=== PATIENT | female | born 1945 | race Caucasian/White ===

== ENCOUNTER → 2020-09-16 10:38 | Outpatient (BNVA) | payer MEDICARE, SELFPAY | PROVIDERS: PCP Internal Medicine Medical Oncology; Visit Provider Internal Medicine | DX: J44.9 Chronic obstructive pulmonary disease, unspecified (principal); F41.9 Anxiety disorder, unspecified; Z79.899 Other long term (current) drug therapy | CPT/HCPCS: 99212 ==

== ENCOUNTER → 2021-03-16 09:27 | Outpatient (BNVA) | payer MEDICARE, SELFPAY | PROVIDERS: PCP Internal Medicine Medical Oncology; Visit Provider Internal Medicine | DX: J44.9 Chronic obstructive pulmonary disease, unspecified (principal); F41.9 Anxiety disorder, unspecified | CPT/HCPCS: 99212 ==

== ENCOUNTER 2021-09-03 08:52 | Observation (INO) | payer MEDICARE, SELFPAY ==
[2021-09-03] VITALS (10 sets, daily range): BP systolic 117–174; BP diastolic 54–73; PULSE 74–88; RESP 13–18; TEMP 36.9–37.9; O2SAT 94–98; BMI 25.0
--- NOTE | ~2021-09-03 | XR_ITS ---
EXAMINATION: XR CHEST CLINICAL INFORMATION: Productive cough, yellow sputum for approximately 6 days. COMPARISON: Chest radiographs 02/06/2007 TECHNIQUE: Portable upright AP view of the chest was obtained. FINDINGS: Patient is rotated to the left. There is questionable opacity left retrocardiac region at posterior medial base. There are no air bronchograms and no effusion. The lungs otherwise clear. The heart is normal in size. There is no acute bony abnormality. XR/XR chest 1V IMPRESSION: Question airspace opacity left retrocardiac region.
--- NOTE | 2021-09-03 09:29 | ECG_ITS ---
Test Reason : FATIGUE Blood Pressure : / mmHG Vent. Rate : 087 BPM Atrial Rate : 087 BPM P-R Int : 112 ms QRS Dur : 074 ms QT Int : 324 ms P-R-T Axes : 050 018 026 degrees QTc Int : 389 ms Normal sinus rhythm Normal ECG No previous ECGs available Referred By: Jacinta Llamas Electronically Signed By:LOTTIE SPAIN MD
--- NOTE | 2021-09-03 09:33 | ED_ITS ---
HPI - URI/Sore Throat General Chief Complaint: Upper Respiratory Symptoms Stated Complaint: cough Time Seen by Provider: 09/03/21 09:23 Source: patient and family ( at bedside) Mode of arrival: ambulatory Limitations: no limitations History of Present Illness HPI Narrative: 76-year-old female presenting to the ED with her at bedside who has a past medical history of anxiety and COPD currently being followed by pulmonology presenting to the ED with complaints of generalized fatigue with a poor appetite for the past few weeks after she had the old people flu vaccine on July 29 her also received the vaccine although since then the patient has not been feeling herself. She reports that on Tuesday she developed a productive cough with yellow-colored sputum. She was fully vaccinated with the COVID vaccine in December. She denies any fevers, chills, dizziness, headaches, neck pain/stiffness, sore throat, ear pain, chest pain or shortness of breath, dyspnea on exertion, orthopnea, palpitations, abdominal pain, back pain, dysuria, hematuria, black or bloody stools, lower extremity edema, calf tenderness, recent travel or sick contacts or any other symptoms complaints or concerns at this time. MD elicited complaint: cough and other (Generalized fatigue, body aches and poor appetite) Onset (ago): week(s) Consistency: constant and progressively worsening Severity: mild Description of mucous: yellow Able to tolerate fluids by mouth: Yes Exacerbating factors: nothing Relieving factors: nothing Associated symptoms: myalgias, cough and other (Fatigue and poor appetite) Treatments prior to arrival: none Related Data Home Medications Medication Instructions Recorded Confirmed atorvastatin 40 mg tablet 40 mg PO DAILY 07/26/20 lisinopril 10 mg tablet 10 mg PO DAILY 07/26/20 Previous Rx's Medication Instructions Recorded salmeterol 50 mcg/dose blister 1 inh INHALATION BID 30 Days #60 ea 01/01/21 powder for inhalation fluticasone propionate 220 2 puff INHALATION BID #12 cap 02/25/21 mcg/actuation HFA aerosol inhaler (Flovent HFA) lorazepam 1 mg tablet 1 mg PO .Q 6 HOURS PRN FOR AN PRN 06/16/21 30 Days #30 tab albuterol sulfate 90 mcg/actuation 2 puff INHALATION Q6H PRN #1 ea 07/14/21 aerosol inhaler (ProAir HFA) Allergies Allergy/AdvReac Type Severity Reaction Status Date / Time levofloxacin [Levaquin] Allergy Unknown Unknown Verified 03/16/21 09:38 Sulfa (Sulfonamide Allergy Unknown Unknown Verified 03/16/21 09:38 Antibiotics) Review of Systems Review of Systems: Constitutional : Positive fatigue/malaise, Weight loss, No Fever, No Chills, No Night Sweats ENT/Mouth : No Hearing loss, No Ear Pain, No Nasal Congestion, No Sinus Pain, No Hoarseness, No sore throat, No Rhinorrhea, No Swallowing Difficulty Eyes: No Eye Pain, No Swelling, No Redness, No Foreign Body, No Discharge, No Vision Changes Cardiovascular : No Chest Pain, No SOB, No Dyspnea on Exertion, No Orthopnea, No Edema, No Palpitations Respiratory : Positive cough with yellow-colored sputum production, No Wheezing, No Smoke Exposure, No Dyspnea Gastrointestinal : No Nausea, No Vomiting, No Diarrhea, No Constipation, No abdominal Pain, No Hematochezia, No Melena Genitourinary : no irregular bleeding, No Dysuria, No Urinary Frequency, No Hematuria, No Urinary Incontinence, No Urgency, No Flank Pain, No Urinary Flow Changes, No Hesitancy Musculoskeletal : Positive myalgias, No joint pain, No Joint Swelling Skin : No Skin Lesions, No rash Neuro : No Weakness, No Numbness, No Paresthesias, No Loss of Consciousness, No Dizziness, No Headache Psych : No Anxiety/Panic, No Depression, No SI/HI/AH/VH, No Social Issues, Heme/Lymph: No Bruising, No Bleeding,No Lymphadenopathy Endocrine : No Polyuria, No Polydipsia, No Temperature Intolerance Yes all other systems are reviewed and are negative [facility] Past Medical History Attestation statement: The following information was validated with the patient. Medical History Anxiety COPD (chronic obstructive pulmonary disease) Social History Social History Alcohol intake: never Patient Tobacco Use Status: Never used Tobacco Years Smoked: 1979 Use of substances other than those prescribed or required for medical reasons: No Advance Directives: No Advance Directives Information Provided: No Physical Exam Vital Signs: Vital Signs: Last Vital Signs Temp 98.5 F 09/03/21 14:06 Pulse 79 09/03/21 14:05 Resp 13 09/03/21 14:05 BP 173/54 H 09/03/21 12:10 Pulse Ox 94 09/03/21 10:16 Body Mass Index 25.0 vital signs have been reviewed as normal and appeared to be correct. Blood pressure hypertensive 174/73. Heart rate normal. Respiration rate normal. Temperature normal. Oxygen saturation normal. Appearance: Alert. Oriented X3. No acute distress. Head: Normal external exam. Normocephalic. Atraumatic. Eyes: PERRLA. EOMI. Conjunctiva and sclera normal. Eyelids normal. ENT: EAC normal. TM's Normal. Pharynx normal. Uvula midline. Moist mucous membranes. No trismus noted. No drooling noted. No muffled voice noted. Neck: Normal inspection. Neck supple. FROM. No adenopathy. Thyroid Normal. No meningeal signs. No neck mass noted. CVS: Normal heart rate and rhythm. Heart sound normal. Pulses normal throughout. No murmurs/rales/gallops. Respiratory: No respiratory distress. Painless inspiration. Breath sounds normal. No wheezes/rales/rhonchi noted. Chest nontender. No accessory muscle usage noted or decreased air movement noted. Abdomen: Soft and nontender. Bowel sounds normal in all 4 quadrants. No distention noted. No organomegaly noted. No visible injury noted. Back: No CVA tenderness. Full range of motion noted. No rashes/lesion/ induration/fluctuance or signs of infection noted. Skin: Skin warm and dry. Normal skin color. Normal skin turgor. No rashes/lesions/lacerations noted. Extremities: No lower extremity edema. No calf tenderness is noted. Extremities exhibit normal range of motion. Extremities nontender. Neuro: Oriented X 3. No motor deficit. No sensory deficit. Reflexes normal. Normal steady gait. No focal neuro deficits noted. Vascular: + radial pulses/+ 2 distal pedal pulses/+2 dorsalis pedis b/l. Normal cap refill. No cyanosis noted to upper extremity nails and lower extremity toes nails. Course Course Course Narrative: 9:30am - 76-year-old female presenting to the ED with her at bedside who has a past medical history of anxiety and COPD currently being followed by pulmonology presenting to the ED with complaints of generalized fatigue with a poor appetite for the past few weeks after she had the old people flu vaccine on July 29 her also received the vaccine although since then the patient has not been feeling herself. She reports that on Tuesday she developed a productive cough with yellow-colored sputum. She was fully vaccinated with the COVID vaccine in December. On exam patient is alert oriented x3. Not in any acute distress. No focal know that are noted. Lungs clear to auscultation. CV RRR. Abdomen is soft and nontender. No CVA tenderness is noted. No lower extremity edema or calf tenderness is noted. Plan: Labs, EKG, chest x-ray, COVID swab. Provide a L of IV fluids and re- evaluate. Reevaluation(s) Reevaluation #1: - labs return patient with an elevated white blood cell count at 12,000. BUN 22. AST/ALT 94. Troponin 9.4. Otherwise all other labs are within normal limits. UA with 1+ leukocytes. COVID swab negative. - question airspace opacity left retro cardiac region - it appears that patient also has a low-grade fever of 100.3. - therefore at this time will add blood cultures and lactic acid along with 1 g of Rocephin - patient will have a repeat troponin at 13:00 will then re-evaluate Time: 11:06 Reevaluation #2: - patient had a repeat troponin 2 hours after the 1st accident ally and it was elevated at 19.9 - therefore I obtained a 3rd troponin 3 hours after the 1st troponin and it is at 28.6 - patient continues to deny any chest pain or shortness of breath at this time a lthough due to troponin being double/positive patient will be admitted to observation unit patient understands agrees with this plan. Time: 14:32 [facility] - URI/Sore Throat Medical Records Attestation: I reviewed the patient's medical records. Lab Data Attestation: I reviewed the patient's lab results. Result diagrams: 09/03/21 10:16 09/03/21 10:16 Labs: Lab Results 09/03/21 09/03/21 09/03/21 Range/Units 10:16 10:16 10:16 WBC 12.0 H (4.8-10.8) X10*3/uL RBC 3.99 L (4.20-5.50) X10*6/uL Hgb 12.7 (12.0-16.0) g/dl Hct 37.2 (37.0-47.0) % MCV 93.2 (80.0-98.0) fL MCH 31.8 (27.0-33.0) pg MCHC 34.1 (31.0-35.0) g/dl RDW 13.2 (11.0-16.0) % Plt Count 325 (160-400) X10*3/uL MPV 9.2 L (9.4-12.3) fL Immature Gran % (Auto) 0.7 H (0.0-0.4) % Neut % (Auto) 89.7 H (45-73) % Lymph % (Auto) 3.6 L (20-40) % [place] % (Auto) 5.5 (2-11) % Eos % (Auto) 0.3 (0-4) % Baso % (Auto) 0.2 (0-2) % Lymph # (Auto) 0.4 L (1.2-4.9) X10*3/uL [place] # (Auto) 0.7 (0.1-1.2) X10*3/uL Eos # (Auto) 0.0 (0.0-0.4) X10*3/uL Baso # (Auto) 0.0 (0.0-0.2) X10*3/uL Abs Immat Gran (auto) 0.08 H (0.00-0.03) X10*3/uL Absolute Neuts (auto) 10.80 H (2.0-8.3) x10*3/uL Absolute Nucleated RBC 0.000 (0.0-0.012) X10*3/uL Nucleated RBC % (auto) 0.0 (0.0-0.2) /100WBC PT (9.9-13.0) SEC INR (0.9-1.1) Sodium 137 (135-145) mmol/L Potassium 4.3 (3.3-5.1) mmol/L Chloride 101 (96-108) mmol/L Carbon Dioxide 26 (22-29) mmol/L Anion Gap 14 (12-20) BUN 22 H (9-16) mg/dL Creatinine 0.77 (0.5-1.4) mg/dL Estim Creat Clear Calc 48.8 Estimated GFR > 60 Random Glucose 113 (60-115) mg/dL Lactic Acid (0.5-2.0) mmol/L Calcium 9.2 (8.4-10.2) mg/dL Magnesium 2.0 (1.6-2.6) mg/dL Total Bilirubin 0.8 (0.0-1.0) mg/dL AST 94 H (5-31) U/L ALT 94 H (0-31) U/L Alkaline Phosphatase 90 (39-117) U/L Troponin I High Sens (<3.5-17.0) ng/L B-Natriuretic Peptide (<100) pg/mL Total Protein 6.8 (6.5-8.0) g/dL Albumin 3.8 (3.5-5.0) g/dL Urine Color Urine Appearance Urine pH (5.0-8.0) Ur Specific [place] (1.005-1.025) Urine Protein (NEG-TRACE) MG/DL Urine Glucose (UA) (NEG) MG/DL Urine Ketones (NEG) MG/DL Urine Blood (NEG) Urine Nitrite (NEG) Ur Leukocyte Esterase (NEG) Urine RBC (0) /HPF Urine WBC (0-4) /HPF Ur Squamous Epith Cells /LPF Urine Bacteria /LPF COVID-19 (TOM) Negative (Negative) COVID-19 Clin Com See Note 09/03/21 09/03/21 09/03/21 Range/Units 10:16 10:16 10:16 WBC (4.8-10.8) X10*3/uL RBC (4.20-5.50) X10*6/uL Hgb (12.0-16.0) g/dl Hct (37.0-47.0) % MCV (80.0-98.0) fL MCH (27.0-33.0) pg MCHC (31.0-35.0) g/dl RDW (11.0-16.0) % Plt Count (160-400) X10*3/uL MPV (9.4-12.3) fL Immature Gran % (Auto) (0.0-0.4) % Neut % (Auto) (45-73) % Lymph % (Auto) (20-40) % [place] % (Auto) (2-11) % Eos % (Auto) (0-4) % Baso % (Auto) (0-2) % Lymph # (Auto) (1.2-4.9) X10*3/uL [place] # (Auto) (0.1-1.2) X10*3/uL Eos # (Auto) (0.0-0.4) X10*3/uL Baso # (Auto) (0.0-0.2) X10*3/uL Abs Immat Gran (auto) (0.00-0.03) X10*3/uL Absolute Neuts (auto) (2.0-8.3) x10*3/uL Absolute Nucleated RBC (0.0-0.012) X10*3/uL Nucleated RBC % (auto) (0.0-0.2) /100WBC PT 13.4 H (9.9-13.0) SEC INR 1.2 H (0.9-1.1) Sodium (135-145) mmol/L Potassium (3.3-5.1) mmol/L Chloride (96-108) mmol/L Carbon Dioxide (22-29) mmol/L Anion Gap (12-20) BUN (9-16) mg/dL Creatinine (0.5-1.4) mg/dL Estim Creat Clear Calc Estimated GFR Random Glucose (60-115) mg/dL Lactic Acid (0.5-2.0) mmol/L Calcium (8.4-10.2) mg/dL Magnesium (1.6-2.6) mg/dL Total Bilirubin (0.0-1.0) mg/dL AST (5-31) U/L ALT (0-31) U/L Alkaline Phosphatase (39-117) U/L Troponin I High Sens 9.4 (<3.5-17.0) ng/L B-Natriuretic Peptide 17 (<100) pg/mL Total Protein (6.5-8.0) g/dL Albumin (3.5-5.0) g/dL Urine Color YELLOW Urine Appearance HAZY Urine pH 6.0 (5.0-8.0) Ur Specific [place] 1.010 (1.005-1.025) Urine Protein NEG (NEG-TRACE) MG/DL Urine Glucose (UA) NEG (NEG) MG/DL Urine Ketones NEG (NEG) MG/DL Urine Blood NEG (NEG) Urine Nitrite NEG (NEG) Ur Leukocyte Esterase 1+ H (NEG) Urine RBC 0-2 (0) /HPF Urine WBC 0-2 (0-4) /HPF Ur Squamous Epith Cells 1+ /LPF Urine Bacteria NONE /LPF COVID-19 (TOM) (Negative) COVID-19 Clin Com 09/03/21 09/03/21 09/03/21 Range/Units 11:48 11:48 13:20 WBC (4.8-10.8) X10*3/uL RBC (4.20-5.50) X10*6/uL Hgb (12.0-16.0) g/dl Hct (37.0-47.0) % MCV (80.0-98.0) fL MCH (27.0-33.0) pg MCHC (31.0-35.0) g/dl RDW (11.0-16.0) % Plt Count (160-400) X10*3/uL MPV (9.4-12.3) fL Immature Gran % (Auto) (0.0-0.4) % Neut % (Auto) (45-73) % Lymph % (Auto) (20-40) % [place] % (Auto) (2-11) % Eos % (Auto) (0-4) % Baso % (Auto) (0-2) % Lymph # (Auto) (1.2-4.9) X10*3/uL [place] # (Auto) (0.1-1.2) X10*3/uL Eos # (Auto) (0.0-0.4) X10*3/uL Baso # (Auto) (0.0-0.2) X10*3/uL Abs Immat Gran (auto) (0.00-0.03) X10*3/uL Absolute Neuts (auto) (2.0-8.3) x10*3/uL Absolute Nucleated RBC (0.0-0.012) X10*3/uL Nucleated RBC % (auto) (0.0-0.2) /100WBC PT (9.9-13.0) SEC INR (0.9-1.1) Sodium (135-145) mmol/L Potassium (3.3-5.1) mmol/L Chloride (96-108) mmol/L Carbon Dioxide (22-29) mmol/L Anion Gap (12-20) BUN (9-16) mg/dL Creatinine (0.5-1.4) mg/dL Estim Creat Clear Calc Estimated GFR Random Glucose (60-115) mg/dL Lactic Acid 1.4 (0.5-2.0) mmol/L Calcium (8.4-10.2) mg/dL Magnesium (1.6-2.6) mg/dL Total Bilirubin (0.0-1.0) mg/dL AST (5-31) U/L ALT (0-31) U/L Alkaline Phosphatase (39-117) U/L Troponin I High Sens 19.4 H* D 28.6 H* (<3.5-17.0) ng/L B-Natriuretic Peptide (<100) pg/mL Total Protein (6.5-8.0) g/dL Albumin (3.5-5.0) g/dL Urine Color Urine Appearance Urine pH (5.0-8.0) Ur Specific [place] (1.005-1.025) Urine Protein (NEG-TRACE) MG/DL Urine Glucose (UA) (NEG) MG/DL Urine Ketones (NEG) MG/DL Urine Blood (NEG) Urine Nitrite (NEG) Ur Leukocyte Esterase (NEG) Urine RBC (0) /HPF Urine WBC (0-4) /HPF Ur Squamous Epith Cells /LPF Urine Bacteria /LPF COVID-19 (TOM) (Negative) COVID-19 Clin Com Imaging Data Chest x-ray: Attestation: I personally reviewed and interpreted this imaging study as follows: Radiologist's impression: FINDINGS: Patient is rotated to the left. There is questionable opacity left retrocardiac region at posterior medial base. There are no air bronchograms and no effusion. The lungs otherwise clear. The heart is normal in size. There is no acute bony abnormality. XR/XR chest 1V IMPRESSION: Question airspace opacity left retrocardiac region. ECG Data Attestation: I personally reviewed and interpreted this ECG as follows: ECG interpretation date: 09/03/21 ECG interpretation time: 10:02 Interpretation: Normal sinus rhythm and trickling of 87 with a normal IN interval normal QRS duration normal QT/QTC interval. No acute ischemic change are noted. Scores Heart Score History: -0- slightly suspicious ECG: -0- normal Age: -2- > or = 65 Risk factory: -0- no risk factors known Troponin: -1- >1 - <3x normal limit Score: 3 Risk: 1.7% Critical Care Time Critical Care Time Critical Care Time: Yes Total Critical Care Time: 60 Attestation: I personally attest to this time spent taking care of the patient Discharge Plan Discharge Clinical Impression: Pneumonia, Elevated troponin Patient Disposition: Admitted as Observation Prescriptions: No Action salmeterol 50 mcg/dose blister with device 1 inh inhalation BID 30 Days Qty: 60 RF: 5 fluticasone propionate [Flovent HFA] 220 mcg/actuation HFA aerosol inhaler 2 puff inhalation BID Qty: 12 RF: 3 lorazepam 1 mg tablet 1 mg PO .Q 6 HOURS PRN FOR AN PRN (Reason: anxiety) 30 Days Qty: 30 RF: 2 albuterol sulfate [ProAir HFA] 90 mcg/actuation HFA aerosol inhaler 2 puff inhalation Q6H PRN (Reason: shortness of breath or wheezing) Qty: 1 RF: 2 lisinopril 10 mg tablet 10 mg PO DAILY RF: 0 atorvastatin 40 mg tablet 40 mg PO DAILY RF: 0
[2021-09-03] MEDS: 0.9 % Sodium Chloride 1,000 ML 999 ML IVCONT (10:18)
--- NOTE | 2021-09-03 10:19 | PC.NURSE ---
C/O GEN FATIGUE. NO HEADACHE/CP/DIZZINESS. STEADY ON FEET TO BR. UNLABORED RESP. AWAITS RESULTS.
[2021-09-03 10:24] LABS: MANUAL DIFF FLAG NO
[2021-09-03 10:26] LABS: Appearance Urine HAZY; Basophils Percent Auto 0.2 % (0-2); Color Urine YELLOW; Eosinophils Percent Auto 0.3 % (0-4); Glucose Urine UA NEG (NEG); Hematocrit 37.2 % (37.0-47.0); Hemoglobin 12.7 g/dl (12.0-16.0); Imm Gran Abs Auto 0.08 X10*3/uL (0.00-0.03); Imm Gran Pct Auto 0.7 % (0.0-0.4); Leukocyte Esterase Urine 1+ (NEG); Lymphocytes Absolute Auto 0.4 X10*3/uL (1.2-4.9); Lymphocytes Percent Auto 3.6 % (20-40); Mean Corpuscular HGB Conc 34.1 g/dl (31.0-35.0); Mean Corpuscular Hemoglobin 31.8 pg (27.0-33.0); Mean Corpuscular Volume 93.2 fL (80.0-98.0); Mean Platelet Volume 9.2 fL (9.4-12.3); Monocytes Absolute Auto 0.7 X10*3/uL (0.1-1.2); Monocytes Percent Auto 5.5 % (2-11); Neutrophils Percent Auto 89.7 % (45-73); Nitrite Urine NEG (NEG); Platelet Count 325 X10*3/uL (160-400); Red Blood Count 3.99 X10*6/uL (4.20-5.50); Red Cell Distribution Width 13.2 % (11.0-16.0); UACC Culture Trigger YES; Urine Blood NEG (NEG); Urine Ketones NEG (NEG); Urine Protein NEG (NEG-TRACE)
[2021-09-03 10:33] LABS: INTERNATIONAL NORM RATIO 1.2 (0.9-1.1); Prothrombin Time 13.4 SEC (9.9-13.0)
[2021-09-03 10:42] LABS: Alanine Aminotransferase 94 U/L (0-31); Albumin Level 3.8 g/dL (3.5-5.0); Alkaline Phosphatase 90 U/L (39-117); Anion Gap 14 (12-20); Aspartate Amino Transferase 94 U/L (5-31); Bilirubin Total 0.8 mg/dL (0.0-1.0); Blood Urea Nitrogen 22 mg/dL (9-16); COVID-19 Test Negative (Negative); Calcium 9.2 mg/dL (8.4-10.2); Carbon Dioxide 26 mmol/L (22-29); Chloride 101 mmol/L (96-108); Creatinine Clr Calc Pharmacy 48.8; Estimated Glomerular Filt Rate > 60; Glucose Random 113 mg/dL (60-115); IDNOW Serial# 9DD0AD1C; Potassium 4.3 mmol/L (3.3-5.1); Sodium 137 mmol/L (135-145); Total Protein 6.8 g/dL (6.5-8.0)
[2021-09-03 10:49] LABS: B Type Natriuretic Peptide 17 pg/mL (<100); Troponin-I High Sensitivity 9.4 ng/L (<3.5-17.0)
[2021-09-03 11:50] LABS: RBC Urine 0-2 /HPF (0); Squamous Epithelial Cell Urine 1+ /LPF; WBC Urine 0-2 /HPF (0-4)
[2021-09-03] MEDS: cefTRIAXone sodium 1 GM in 0.9 % Sodium Chloride 50 ML IV (12:04)
[2021-09-03 12:08] LABS: Lactic Acid 1.4 mmol/L (0.5-2.0)
[2021-09-03] MEDS: Acetaminophen 325 MG TABLET 975 MG PO (12:11)
[2021-09-03 12:29] LABS: Troponin-I High Sensitivity 19.4 ng/L (<3.5-17.0)
[2021-09-03 13:51] LABS: Troponin-I High Sensitivity 28.6 ng/L (<3.5-17.0)
--- NOTE | 2021-09-03 15:05 | PHA.MEDREC ---
Pharmacy Consult ? Medication Reconciliation Pharmacy has completed the medication reconciliation. Marilyn FletcherD
--- NOTE | 2021-09-03 15:17 | PM.IMHP ---
History of Present Illness Date of Service: 09/03/21 <BRET Tsang - Last Filed: 09/03/21 15:29> Attending physician on admission: Gerry Rosas <BRET Tsang - Last Filed: 09/03/21 15:29> Chief Complaint: Weakness <BRET Tsang - Last Filed: 09/03/21 15:29> This is a 76-year-old female who presents to the emergency department today with multiple complaints. She received her flu vaccination close to 1 month ago. Since that time she has reported decreased appetite generally not feeling well and sleeping more than usual. She also reports a cough productive of yellow phlegm and intermittent chills. She denies any associated fever or recent sick contacts. She is fully vaccinated for coronavirus. She denies any chest pain, palpitations. Today in the emergency department she was noted to have a low-grade fever of 100.3 her COVID test was negative. Chest x-ray showed possibility of pneumonia and she was given a dose of IV ceftriaxone. Her urinalysis was negative. Labs showed a slight transaminitis with AST and ALT at 94. Her cardiac enzymes were checked and increased by greater than 50%, from 9 to 19 to 28. EKG did not show any acute ischemic changes. <BRET Tsang - Last Filed: 09/03/21 15:29> Review of Systems Review of Systems: Yes all other systems are reviewed and are negative <BRET Tsang - Last Filed: 09/03/21 15:29> Constitutional: Constitutional: Reports chills and Reports malaise <BRET Tsang - Last Filed: 09/03/21 15:29> Cardiovascular: Cardiovascular: Denies chest pain <BRET Tsang - Last Filed: 09/03/21 15:29> Gastrointestinal: Gastrointestinal: Denies abdominal pain <BRET Tsang Last Filed: 09/03/21 15:29> [facility] Medical History: Medical History (Updated 09/03/21 @ 15:28 by BRET Tsang) Anxiety COPD (chronic obstructive pulmonary disease) HLD (hyperlipidemia) HTN (hypertension) <BRET Tsang - Last Filed: 09/03/21 15:29> Functional capacity: independent ambulation <BRET Tsang - Last Filed: 09/03/21 15:29> Pertinent family history: mom- HTN dad- Parkinson's disease <BRET Tsang - Last Filed: 09/03/21 15:29> Social History: Social History (Updated 09/03/21 @ 15:22 by BRET Tsang) Alcohol intake: current Alcohol intake frequency: a few times a month Patient Tobacco Use Status: Former Tobacco user Years Smoked: 1979 Use of substances other than those prescribed or required for medical reasons: No Advance Directives: No Advance Directives Information Provided: No service: No Current occupational status: retired <BRET Tsang - Last Filed: 09/03/21 15:29> Meds Allergies/Adverse reactions: Allergies Allergy/AdvReac Type Severity Reaction Status Date / Time levofloxacin [Levaquin] Allergy Unknown Unknown Verified 03/16/21 09:38 Sulfa (Sulfonamide Allergy Unknown Unknown Verified 03/16/21 09:38 Antibiotics) <BRET Tsang - Last Filed: 09/03/21 15:29> Active Medications: Current Medications Albuterol Sulfate (Albuterol Sulfate 90 Mcg 8 Gm Inhaler) 2 puff INHALE Q6H PRN PRN Reason: shortness of breath or wheezing Docusate Sodium (Docusate Sodium 100 Mg Capsule) 100 mg PO DAILY PRN PRN Reason: Constipation Heparin Sodium (Porcine) (Heparin Sodium,Porcine 5,000 Unit/Ml Vial) 5,000 unit SUBCUT Q12H WALTER Ceftriaxone Sodium 1 gm/ (Sodium Chloride) 50 mls @ 100 mls/hr IV Q24H WALTER Azithromycin 500 mg/ Sodium (Chloride) 250 mls @ 125 mls/hr IV Q24H WALTER Lisinopril (Lisinopril 10 Mg Tablet) 10 mg PO BEDTIME WALTER; Protocol Lorazepam (Lorazepam 1 Mg Tablet) 1 mg PO BEDTIME WALTER Non-Formulary Medication (Fluticasone Propionate [Flovent Hfa]) 1 puff INHALE BEDTIME WALTER Ondansetron HCl (Ondansetron Hcl 4 Mg/2 Ml Vial) 4 mg IVPUSH Q8H PRN PRN Reason: Nausea and Vomiting Pharmacy Consult (Consult Rx Perform Med Rec) 1 each MISCELLANE ONCE PRN PRN Reason: Consult order Salmeterol Xinafoate (Salmeterol Xinafoate 50 Mcg Blst.W.Dev) 1 puff INHALE BEDTIME WALTER Sodium Chloride (0.9 % Sodium Chloride Flush 3 Ml Syringe) 3 ml IVFLUSH QSHIFT WALTER <BRET Tsang Last Filed: 09/03/21 15:29> Home medications: Home Medications Medication Instructions Recorded Confirmed Last Taken Type atorvastatin 40 mg tablet 40 mg PO BEDTIME 07/26/20 09/03/21 09/02/21 History lisinopril 10 mg tablet 10 mg PO BEDTIME 07/26/20 09/03/21 09/02/21 History fluticasone propionate 220 1 puff INHALATION BEDTIME 09/03/21 09/03/21 09/01/21 History mcg/actuation HFA aerosol inhaler (Flovent HFA) lorazepam 1 mg tablet 1 mg PO BEDTIME 09/03/21 09/03/21 09/02/21 History salmeterol 50 mcg/dose blister 1 inh INHALATION BEDTIME 09/03/21 09/03/21 09/02/21 History powder for inhalation <BRET Tsang - Last Filed: 09/03/21 15:29> Physical Exam Vital Signs and Narrative: Vital Signs: Last Vital Signs Temp 98.5 F 09/03/21 14:06 Pulse 79 09/03/21 14:05 Resp 13 09/03/21 14:05 BP 173/54 H 09/03/21 12:10 Pulse Ox 94 09/03/21 10:16 Body Mass Index 25.0 <BRET Tsang Last Filed: 09/03/21 15:29> Const: Nutritional Appearance: well nourished <BRET Tsang Last Filed: 09/03/21 15:29> Orientation/consciousness: patient oriented x3 <BRET Tsang Last Filed: 09/03/21 15:29> HENMT: Head: Yes normocephalic and Yes atraumatic <BRET Tsang Last Filed: 09/03/21 15:29> Eyes: Sclerae: sclerae normal <BRET Tsang - Last Filed: 09/03/21 15:29> Resp: Other: fine dry rales bases <BRET Tsang - Last Filed: 09/03/21 15:29> Effort & Inspection: normal respiratory effort and no respiratory distress <BRET Tsang - Last Filed: 09/03/21 15:29> Cardio: Rate: regular rate <BRET Tsang - Last Filed: 09/03/21 15:29> Rhythm: regular rhythm <BRET Tsang - Last Filed: 09/03/21 15:29> GI: Palpation (GI): Soft to palpation and nontender <BRET Tsang - Last Filed: 09/03/21 15:29> Neuro: General: patient oriented x3 <BRET Tsang - Last Filed: 09/03/21 15:29> Cranial nerves: Yes CN's II-XII intact bilaterally and Yes Bilaterally intact EOM present <BRET Tsang - Last Filed: 09/03/21 15:29> Extrem: Other: no leg edema <BRET Tsang - Last Filed: 09/03/21 15:29> Results Labs CBC and Chem 7: : 09/04/21 06:25 09/04/21 06:25 <BRET Tsang - Last Filed: 09/03/21 15:29> Labs: Laboratory Results - last 24 hr 09/03/21 09/03/21 09/03/21 10:16 10:16 10:16 MCV 93.2 MCH 31.8 MCHC 34.1 RDW 13.2 Plt Count 325 MPV 9.2 L Immature Gran % (Auto) 0.7 H Neut % (Auto) 89.7 H Lymph % (Auto) 3.6 L [place] % (Auto) 5.5 Eos % (Auto) 0.3 Baso % (Auto) 0.2 Lymph # (Auto) 0.4 L [place] # (Auto) 0.7 Eos # (Auto) 0.0 Baso # (Auto) 0.0 Abs Immat Gran (auto) 0.08 H Absolute Neuts (auto) 10.80 H Absolute Nucleated RBC 0.000 Nucleated RBC % (auto) 0.0 PT INR Anion Gap 14 Estim Creat Clear Calc 48.8 Estimated GFR > 60 Random Glucose 113 Lactic Acid Calcium 9.2 Magnesium 2.0 Total Bilirubin 0.8 AST 94 H ALT 94 H Alkaline Phosphatase 90 Troponin I High Sens B-Natriuretic Peptide Total Protein 6.8 Albumin 3.8 Urine Color Urine Appearance Urine pH Ur Specific [place] Urine Protein Urine Glucose (UA) Urine Ketones Urine Blood Urine Nitrite Ur Leukocyte Esterase Urine RBC Urine WBC Ur Squamous Epith Cells Urine Bacteria COVID-19 (TOM) Negative COVID-19 Clin Com See Note 09/03/21 09/03/21 09/03/21 10:16 10:16 10:16 MCV MCH MCHC RDW Plt Count MPV Immature Gran % (Auto) Neut % (Auto) Lymph % (Auto) [place] % (Auto) Eos % (Auto) Baso % (Auto) Lymph # (Auto) [place] # (Auto) Eos # (Auto) Baso # (Auto) Abs Immat Gran (auto) Absolute Neuts (auto) Absolute Nucleated RBC Nucleated RBC % (auto) PT 13.4 H INR 1.2 H Anion Gap Estim Creat Clear Calc Estimated GFR Random Glucose Lactic Acid Calcium Magnesium Total Bilirubin AST ALT Alkaline Phosphatase Troponin I High Sens 9.4 B-Natriuretic Peptide 17 Total Protein Albumin Urine Color YELLOW Urine Appearance HAZY Urine pH 6.0 Ur Specific [place] 1.010 Urine Protein NEG Urine Glucose (UA) NEG Urine Ketones NEG Urine Blood NEG Urine Nitrite NEG Ur Leukocyte Esterase 1+ H Urine RBC 0-2 Urine WBC 0-2 Ur Squamous Epith Cells 1+ Urine Bacteria NONE COVID-19 (TOM) COVID-19 Clin Com 09/03/21 09/03/21 09/03/21 11:48 11:48 13:20 MCV MCH MCHC RDW Plt Count MPV Immature Gran % (Auto) Neut % (Auto) Lymph % (Auto) [place] % (Auto) Eos % (Auto) Baso % (Auto) Lymph # (Auto) [place] # (Auto) Eos # (Auto) Baso # (Auto) Abs Immat Gran (auto) Absolute Neuts (auto) Absolute Nucleated RBC Nucleated RBC % (auto) PT INR Anion Gap Estim Creat Clear Calc Estimated GFR Random Glucose Lactic Acid 1.4 Calcium Magnesium Total Bilirubin AST ALT Alkaline Phosphatase Troponin I High Sens 19.4 H* D 28.6 H* B-Natriuretic Peptide Total Protein Albumin Urine Color Urine Appearance Urine pH Ur Specific [place] Urine Protein Urine Glucose (UA) Urine Ketones Urine Blood Urine Nitrite Ur Leukocyte Esterase Urine RBC Urine WBC Ur Squamous Epith Cells Urine Bacteria COVID-19 (TOM) COVID-19 Clin Com <BRET Tsang - Last Filed: 09/03/21 15:29> Imaging Radiologist's Impressions: Impressions Chest X-Ray 09/03/21 09:29 IMPRESSION: Question airspace opacity left retrocardiac region. <BRET Tsang - Last Filed: 09/03/21 15:29> Assessment and Plan (1) Pneumonia: Status: Acute <BRET Tsang - Last Filed: 09/03/21 15:29> (2) Elevated troponin: Status: Acute <BRET Tsang - Last Filed: 09/03/21 15:29> This is a 76-year-old female with history of COPD, anxiety, hyperlipidemia, HTN who presents to hospital 1 week history decreasing appetite cough and fatigue found to have probable pneumonia and slight elevation cardiac enzymes. [place] [id number] chest x-ray showing possible airspace opacity, productive cough COVID negative -IV ceftriaxone/azithromycin -check respiratory pathogen panel Elevated cardiac enzymes No acute ischemic changes on EKG, no chest pain ?secondary to underlying pneumonia -cardiology evaluation HLD hold statin for mild transaminitis -repeat LFTs in a.m. Anxiety Continue home dose of Ativan Hypertension Continue lisinopril DVT prophylaxis-heparin Code status-full code <BRET Tsang - Last Filed: 09/03/21 15:29> This is a 76-year-old female with history of COPD, anxiety, hyperlipidemia, HTN who presents to hospital 1 week history decreasing appetite cough and fatigue found to have probable pneumonia and slight elevation cardiac enzymes. [place] [id number] chest x-ray showing possible airspace opacity, productive cough COVID negative -IV ceftriaxone/azithromycin -check respiratory pathogen panel Elevated cardiac enzymes No acute ischemic changes on EKG, no chest pain ?secondary to underlying pneumonia -cardiology evaluation HLD hold statin for mild transaminitis -repeat LFTs in a.m. Anxiety Continue home dose of Ativan Hypertension Continue lisinopril DVT prophylaxis-heparin Code status-full code I saw and examined and participate in quiros portion of E/M service, I agree with a/p, findings as documented by midlevel provider above, T./Alison <Gerry Rosas MD - Last Filed: 09/04/21 11:10> Quality Stroke Does the patient have a stroke diagnosis?: No <BRET Tsang - Last Filed: 09/03/21 15:29> VTE Prior VTE?: No <BRET Tsang - Last Filed: 09/03/21 15:29> VTE Risk Level:: Medical - moderate - high <BRET Tsang - Last Filed: 09/03/21 15:29> VTE Device Contraindication: N/A - Device Ordered <BRET Tsang - Last Filed: 09/03/21 15:29> VTE Drug Contraindication: N/A - Med Ordered <BRET Tsang - Last Filed: 09/03/21 15:29>
[2021-09-03] MEDS: Azithromycin 500 MG in 0.9 % Sodium Chloride 250 ML 125 MG IV (15:21)
[2021-09-03] MEDS: Heparin Sodium,Porcine 5,000 UNIT/ML VIAL 5000 UNIT SUBCUT (15:22)
[2021-09-03 16:05] LABS: Procalcitonin 1.13 ng/mL
[2021-09-03 17:20] LABS: Adenovirus PCR Not Detected (Not Detect.); Bordetella parapertussis PCR Not Detected (Not Detect.); Bordetella pertussis PCR Not Detected (Not Detect.); Chlamydia pneumoniae PCR Not Detected (Not Detect.); Coronavirus 229E PCR Not Detected (Not Detect.); Coronavirus HKU1 PCR Not Detected (Not Detect.); Coronavirus NL63 PCR Not Detected (Not Detect.); Coronavirus OC43 PCR Not Detected (Not Detect.); Human metapneumovirus PCR Not Detected (Not Detect.); Influenza A PCR Not Detected (Not Detect.); Influenza B PCR Not Detected (Not Detect.); Mycoplasma pneumoniae PCR Not Detected (Not Detect.); Parainfluenza 1 PCR Not Detected (Not Detect.); Parainfluenza 2 PCR Not Detected (Not Detect.); Parainfluenza 3 PCR Not Detected (Not Detect.); Parainfluenza 4 PCR Not Detected (Not Detect.); RSV PCR Not Detected (Not Detect.); Rhino/Enterovirus PCR Not Detected (Not Detect.); SARS-CoV-2 PCR Not Detected (Not Detect.)
--- NOTE | 2021-09-03 19:12 | PC.NURSE ---
pt resting in bed, watching TV with family at bedside. she is calm and cooperative. ate a little bit of dinner, reported not feeling like she could swallow it . offered pudding. pt is pleasant. aware of plan to admit to the floor.
[2021-09-03] MEDS: Salmeterol Xinafoate 50 MCG BLST.W.DEV 1 PUFF INHALE (20:50)
[2021-09-03] MEDS: Fluticasone Propionate 250 MCG BLST.W.DEV 1 PUFF INHALE (20:50)
[2021-09-03] MEDS: lisinopriL 10 MG TABLET PO (21:39)
[2021-09-03] MEDS: LORazepam 1 MG TABLET PO (21:40)
--- NOTE | 2021-09-03 22:25 | PC.NURSE ---
Pt reported to t/w that she was incontinent of stool as she was unable to make it to the bathroom on time it came on out of no where . pt reported she cleaned herself up but did report to t/w that it was loose and yellow-carlotta colored
[2021-09-04] MEDS: Heparin Sodium,Porcine 5,000 UNIT/ML VIAL 5000 UNIT SUBCUT (05:21)
[2021-09-04 05:23] VITALS: BP 134/73; PULSE 74; RESP 20; TEMP 36.8; O2SAT 95
--- NOTE | 2021-09-04 06:10 | PC.NURSE ---
Pt remains alert and oriented x4, calm and cooperative. Pt denies pain. Pt ambulating without issues, stand by assist. Pt denies SOB or cough at this time. Pt states I want to go home today . Vitals remain stable. IV intact. Pt resting in stretcher at this time, will continue to monitor.
[2021-09-04 06:36] LABS: MANUAL DIFF FLAG NO
[2021-09-04 06:42] LABS: Basophils Percent Auto 0.4 % (0-2); Eosinophils Absolute Auto 0.3 X10*3/uL (0.0-0.4); Eosinophils Percent Auto 4.3 % (0-4); Hematocrit 30.3 % (37.0-47.0); Imm Gran Abs Auto 0.07 X10*3/uL (0.00-0.03); Imm Gran Pct Auto 0.9 % (0.0-0.4); Lymphocytes Absolute Auto 1.6 X10*3/uL (1.2-4.9); Lymphocytes Percent Auto 21.1 % (20-40); Mean Corpuscular Hemoglobin 30.9 pg (27.0-33.0); Mean Corpuscular Volume 93.5 fL (80.0-98.0); Mean Platelet Volume 9.4 fL (9.4-12.3); Monocytes Absolute Auto 0.6 X10*3/uL (0.1-1.2); Monocytes Percent Auto 7.3 % (2-11); Neutrophils Absolute Auto 4.9 x10*3/uL (2.0-8.3); Platelet Count 270 X10*3/uL (160-400); Red Blood Count 3.24 X10*6/uL (4.20-5.50); Red Cell Distribution Width 13.3 % (11.0-16.0); White Blood Count 7.5 X10*3/uL (4.8-10.8)
[2021-09-04 07:05] LABS: Alanine Aminotransferase 99 U/L (0-31); Albumin Level 2.9 g/dL (3.5-5.0); Alkaline Phosphatase 72 U/L (39-117); Anion Gap 13 (12-20); Aspartate Amino Transferase 105 U/L (5-31); Bilirubin Total 0.7 mg/dL (0.0-1.0); Blood Urea Nitrogen 13 mg/dL (9-16); Calcium 8.1 mg/dL (8.4-10.2); Carbon Dioxide 22 mmol/L (22-29); Chloride 107 mmol/L (96-108); Creatinine Clr Calc Pharmacy 58.7; Estimated Glomerular Filt Rate > 60; Glucose Random 94 mg/dL (60-115); Potassium 3.9 mmol/L (3.3-5.1); Sodium 138 mmol/L (135-145); Total Protein 5.2 g/dL (6.5-8.0)
[2021-09-04 07:24] VITALS: BP 128/70; PULSE 72; RESP 14; TEMP 36.5
[2021-09-04] MEDS: 0.9 % Sodium Chloride Flush 3 ML SYRINGE IVFLUSH (07:32)
--- NOTE | 2021-09-04 09:01 | PC.NURSE ---
pt seen by nader gutierrez ([place]) pt aware of plan of care.
--- NOTE | 2021-09-04 09:48 | MHC.CM.PN ---
Met with patient and , Mervin, in regards to discharge planning. Patient lives with Mervin, ambulates independently and had no services prior to coming to the hospital. PCP verified. Patient has a HCP at home and will attempt to obtain a copy. Patient received Pfizer vaccines on 12/09 and 12/30. Obs notice explained and signed. Mervin will transport patient home when medically stable. Continue to monitor for d/c needs.
[2021-09-04 09:57] VITALS: BP 115/60; PULSE 74; RESP 15; TEMP 36.5; O2SAT 95
[2021-09-04 11:48] VITALS: BP 136/59; PULSE 74; RESP 20; TEMP 36.8; O2SAT 95
[2021-09-04] MEDS: cefTRIAXone sodium 1 GM in 0.9 % Sodium Chloride 50 ML IV (11:53)
--- NOTE | 2021-09-04 12:11 | PM.DS ---
DS: Providers Provider Date of Service: 09/04/21 <BRET Tsang - Last Filed: 09/04/21 12:24> Date of admission: 09/03/21 14:52 <BRET Tsang - Last Filed: 09/04/21 12:24> Date of discharge: 09/04/21 <BRET Tsang - Last Filed: 09/04/21 12:24> Primary care physician: Mervin Grissom MD <BRET Tsang - Last Filed: 09/04/21 12:24> Consults: 09/03/21 14:58 Consult to Cardiology Routine Consulting Provider: Elijah Araujo Reason for consultation: elevated cardiac enzymes Has provider been notified: No <BRET Tsang - Last Filed: 09/04/21 12:24> Attending physician on discharge: Gerry Rosas <BRET Tsang - Last Filed: 09/04/21 12:24> Discharging clinician: Neha Gutierrez <BRET Tsang - Last Filed: 09/04/21 12:24> DS: Diagnosis Discharge Diagnosis (1) Pneumonia: Status: Acute <BRET Tsang - Last Filed: 09/04/21 12:24> (2) Elevated troponin: Status: Acute <BRET Tsang - Last Filed: 09/04/21 12:24> DS: Summary Hospital Course Hospital Course: From H&P on day of admission is a 76-year-old female who presents to the emergency department today with multiple complaints.? She received her flu vaccination close to 1 month ago.? Since that time she has reported decreased appetite generally not feeling well and sleeping more than usual.? She also reports a cough productive of yellow phlegm and intermittent chills.? She denies any associated fever or recent sick contacts.? She is fully vaccinated for coronavirus.? She denies any chest pain, palpitations.? Today in the emergency department she was noted to have a low-grade fever of 100.3 her COVID test was negative.? Chest x-ray showed possibility of pneumonia and she was given a dose of IV ceftriaxone.? Her urinalysis was negative.? Labs showed a slight transaminitis with AST and ALT at 94. Her cardiac enzymes were checked and increased by greater than 50%, from 9 to 19 to 28. EKG did not show any acute ischemic changes. Pneumonia. Chest x-ray was consistent with pneumonia. She also had low-grade fever and leukocytosis. She was started on IV ceftriaxone and azithromycin. Her leukocytosis has resolved. Blood cultures were obtained and are pending at the time of discharge. Elevated cardiac enzymes. No acute ischemic changes seen on EKG. Patient denied any anginal symptoms. She was evaluated by Cardiology who felt that the slight elevation her cardiac enzymes were likely related to underlying pneumonia and no further workup was required. Anemia. Initial H/H Was 12.7/37.2. Today this has dropped to 10/30.3. Patient denies any acute bleeding. This may be in part dilutional. She does report a history of anemia in the past. Would recommend outpatient follow-up and repeat CBC in the next week or two. The patient was eager to return home today. She is encouraged to call to schedule a follow-up appointment with her PCP to monitor CBC <BRET Tsang - Last Filed: 09/04/21 12:24> Time Spent with Patient Time attestation: Total time spent providing and/or coordinating discharge services: <BRET Tsang - Last Filed: 09/04/21 12:24> Discharge coordination time: Greater than 30 minutes <BRET Tsang Last Filed: 09/04/21 12:24> Quality: Stroke Does the patient have a stroke diagnosis?: No <BRET Tsang Last Filed: 09/04/21 12:24> Physical Exam Vital Signs: Vital Signs: Last Vital Signs Temp 98.2 F 09/04/21 11:48 Pulse 74 09/04/21 11:48 Resp 20 09/04/21 11:48 BP 136/59 L 09/04/21 11:48 Pulse Ox 95 09/04/21 11:48 Body Mass Index 25.0 <BRET Tsang Last Filed: 09/04/21 12:24> Const: Nutritional Appearance: well nourished <BRET Tsang Last Filed: 09/04/21 12:24> Orientation/consciousness: patient oriented x3 <BRET Tsang - Last Filed: 09/04/21 12:24> HENMT: Head: Yes normocephalic and Yes atraumatic <BRET Tsang - Last Filed: 09/04/21 12:24> Eyes: Sclerae: sclerae normal <BRET Tsang - Last Filed: 09/04/21 12:24> Chest: Chest palpation & inspection: normal inspection of the chest <BRET Tsang - Last Filed: 09/04/21 12:24> Resp: Effort & Inspection: normal respiratory effort and no respiratory distress <BRET Tsang - Last Filed: 09/04/21 12:24> Cardio: Rate: regular rate <BRET Tsang - Last Filed: 09/04/21 12:24> Rhythm: regular rhythm <BRET Tsang - Last Filed: 09/04/21 12:24> GI: Palpation (GI): Soft to palpation and nontender <BRET Tsang - Last Filed: 09/04/21 12:24> Neuro: General: patient oriented x3 <BRET Tsang - Last Filed: 09/04/21 12:24> Cranial nerves: Yes CN's II-XII intact bilaterally and Yes Bilaterally intact EOM present <BRET Tsang - Last Filed: 09/04/21 12:24> DS: Data Data Completed and Pending Labs on day of discharge: Laboratory Results - last 24 hr 09/03/21 09/03/21 09/03/21 10:16 11:48 13:20 WBC RBC Hgb Hct MCV MCH MCHC RDW Plt Count MPV Immature Gran % (Auto) Neut % (Auto) Lymph % (Auto) [place] % (Auto) Eos % (Auto) Baso % (Auto) Lymph # (Auto) [place] # (Auto) Eos # (Auto) Baso # (Auto) Abs Immat Gran (auto) Absolute Neuts (auto) Absolute Nucleated RBC Nucleated RBC % (auto) Sodium Potassium Chloride Carbon Dioxide Anion Gap BUN Creatinine Estim Creat Clear Calc Estimated GFR Random Glucose Calcium Total Bilirubin AST ALT Alkaline Phosphatase Troponin I High Sens 19.4 H* D 28.6 H* Total Protein Albumin Procalcitonin 1.13 Respiratory Panel Veronica Adenovirus (Rapid PCR) B.pert (TEM-PCR) B.parapertussis DNA PCR C. pneumoniae DNA (PCR) Coronavirus OC43 (PCR) Coronavirus HKU1 (PCR) Coronavirus 229E (PCR) Coronavirus NL63 (PCR) Human Metapneumovir PCR Influenza A (RT-PCR) Influenza B (RT-PCR) M. pneumoniae (PCR) Parainfluenza 1 (PCR) Parainfluenza 2 (PCR) Parainfluenza 3 (PCR) Parainfluenza 4 (PCR) RSV (PCR) Entero/Rhino (PCR) SARS-CoV-2 RNA (RT-PCR) 09/03/21 09/04/21 09/04/21 17:14 06:25 06:25 WBC 7.5 RBC 3.24 L Hgb 10.0 L D Hct 30.3 L MCV 93.5 MCH 30.9 MCHC 33.0 RDW 13.3 Plt Count 270 MPV 9.4 Immature Gran % (Auto) 0.9 H Neut % (Auto) 66.0 Lymph % (Auto) 21.1 [place] % (Auto) 7.3 Eos % (Auto) 4.3 H Baso % (Auto) 0.4 Lymph # (Auto) 1.6 [place] # (Auto) 0.6 Eos # (Auto) 0.3 Baso # (Auto) 0.0 Abs Immat Gran (auto) 0.07 H Absolute Neuts (auto) 4.9 Absolute Nucleated RBC 0.000 Nucleated RBC % (auto) 0.0 Sodium 138 Potassium 3.9 Chloride 107 Carbon Dioxide 22 Anion Gap 13 BUN 13 Creatinine 0.64 Estim Creat Clear Calc 58.7 Estimated GFR > 60 Random Glucose 94 Calcium 8.1 L D Total Bilirubin 0.7 AST 105 H ALT 99 H Alkaline Phosphatase 72 Troponin I High Sens Total Protein 5.2 L D Albumin 2.9 L D Procalcitonin Respiratory Panel Veronica See Note Adenovirus (Rapid PCR) Not Detected B.pert (TEM-PCR) Not Detected B.parapertussis DNA PCR Not Detected C. pneumoniae DNA (PCR) Not Detected Coronavirus OC43 (PCR) Not Detected Coronavirus HKU1 (PCR) Not Detected Coronavirus 229E (PCR) Not Detected Coronavirus NL63 (PCR) Not Detected Human Metapneumovir PCR Not Detected Influenza A (RT-PCR) Not Detected Influenza B (RT-PCR) Not Detected M. pneumoniae (PCR) Not Detected Parainfluenza 1 (PCR) Not Detected Parainfluenza 2 (PCR) Not Detected Parainfluenza 3 (PCR) Not Detected Parainfluenza 4 (PCR) Not Detected RSV (PCR) Not Detected Entero/Rhino (PCR) Not Detected SARS-CoV-2 RNA (RT-PCR) Not Detected <BRET Tsang - Last Filed: 09/04/21 12:24> Discharge Plan Discharge Patient Disposition: Home, Self-Care <BRET Tsang - Last Filed: 09/04/21 12:24> Discharge Diagnosis: CAP Anemia <BRET Tsang - Last Filed: 09/04/21 12:24> CAP Anemia <Gerry Rosas MD - Last Filed: 09/26/21 16:20> Referrals: Mervin Grissom MD [Primary Care Provider] - 1 Week <BRET Tsang - Last Filed: 09/04/21 12:24> Discharge Medications: New cefuroxime axetil 500 mg tablet 500 mg PO BID 7 Days Qty: 14 RF: 0 azithromycin 500 mg tablet 500 mg PO DAILY 5 Days Qty: 5 RF: 0 Continued albuterol sulfate [ProAir HFA] 90 mcg/actuation HFA aerosol inhaler 2 puff inhalation Q6H PRN (Reason: shortness of breath or wheezing) Qty: 1 RF: 2 salmeterol 50 mcg/dose blister with device 1 inh inhalation BEDTIME RF: 0 Flovent HFA 220 mcg/actuation HFA aerosol inhaler 1 puff inhalation BEDTIME RF: 0 lisinopril 10 mg tablet 10 mg PO BEDTIME RF: 0 atorvastatin 40 mg tablet 40 mg PO BEDTIME RF: 0 No Action lorazepam 1 mg tablet 1 mg PO Q6H PRNRF: 0 lorazepam 1 mg tablet 1 mg PO BID MDD 2 tabs PRN (Reason: anxiety/insomnia) 30 Days Qty: 60 RF: 4 lorazepam 0.5 mg tablet 0.5 mg PO DAILY PRN (Reason: anxiety) 10 Days Qty: 10 RF: 0 <Neha L Brenda, PA - Last Filed: 09/04/21 12:24> Discharge Orders: Discharge Order (Routine); Ordered 09/04/21 Ordered By: Neha Gutierrez <BRET Tsang - Last Filed: 09/04/21 12:24> Activity on Discharge: As tolerated <BRET Tsang - Last Filed: 09/04/21 12:24> As tolerated <Gerry Rosas MD - Last Filed: 09/26/21 16:20> Stand Alone Forms: Patient Portal Discharge page <BRET Tsang - Last Filed: 09/04/21 12:24> Care Plan Goals: Stay healthy and out of the hospital <BRET Tsang - Last Filed: 09/04/21 12:24> Health Concerns: Pneumonia Elevated cardiac enzymes Anemia <BRET Tsang - Last Filed: 09/04/21 12:24> Plan of Treatment: Complete entire course of antibiotics for pneumonia Call to schedule follow-up appointment with PCP to ensure resolution of pneumonia symptoms and to repeat CBC in the next week or two Recommend outpatient echocardiogram <BRET Tsang - Last Filed: 09/04/21 12:24> Assessment: See discharge summary <BRET Tsang - Last Filed: 09/04/21 12:24> Discharge Date/Time: 09/04/21 13:53 <BRET Tsang - Last Filed: 09/04/21 12:24>
--- NOTE | 2021-09-04 12:36 | P.CONCA_ITS ---
History of Present Illness History of Present Illness Date of Service: 09/04/21 Requesting physician: Neha Gutierrez Chief complaint: elevated cardiac enzymes, pneumonia Narrative: I was asked to see Mita in cardiology consultation today for elevated troponin. Unclear why troponin testing was performed in this patient. Patient present with respiratory symptoms of generalized fatigue, poor appetite, cough productive of yellow-colored sputum and overall not feeling well. At no time she had any symptoms of chest pain. She was noted to have pneumonia. No EKG findings of ischemia. Patient 1st troponin done at 9.4 and then 2nd troponin within 3 hours at 19.4 and 3rd troponin 28.6. Patient has no cardiac changes or symptoms and no EKG changes. She has no prior history of any heart issues. Review of Systems Constitutional: Constitutional: Reports anorexia, Reports chills, Reports fatigue and Reports weakness Eyes: Eyes: Reports no additional eye complaints ENT: Reports system reviewed and no additional complaints, except as documented Cardiovascular: Cardiovascular: Reports no additional cardiovascular complaints Respiratory: Respiratory: Reports change in phlegm color and Reports cough Gastrointestinal: Gastrointestinal: Reports no additional gastrointestinal complaints Musculoskeletal: Musculoskeletal: Reports no additional musculoskeletal complaints Neurologic: Reports system reviewed and no additional complaints, except as documented and Reports weakness Endocrine: Endocrine: Reports no additional endocrine complaints and Reports fatigue PMFSH Past Medical History Medical History Anxiety COPD (chronic obstructive pulmonary disease) HLD (hyperlipidemia) HTN (hypertension) Functional capacity: independent ambulation Social History Social History (Updated 09/03/21 @ 15:22 by BRET Tsang) Alcohol intake: current Alcohol intake frequency: a few times a month Patient Tobacco Use Status: Former Tobacco user Years Smoked: 1979 Use of substances other than those prescribed or required for medical reasons: No Advance Directives: No Advance Directives Information Provided: No service: No Current occupational status: retired Meds Allergies Allergy/AdvReac Type Severity Reaction Status Date / Time levofloxacin [Levaquin] Allergy Unknown Unknown Verified 03/16/21 09:38 Sulfa (Sulfonamide Allergy Unknown Unknown Verified 03/16/21 09:38 Antibiotics) Active Medications: Current Medications Albuterol Sulfate (Albuterol Sulfate 90 Mcg 8 Gm Inhaler) 2 puff INHALE Q6H PRN PRN Reason: shortness of breath or wheezing Docusate Sodium (Docusate Sodium 100 Mg Capsule) 100 mg PO DAILY PRN PRN Reason: Constipation Fluticasone Propionate (Fluticasone Propionate 250 Mcg Blst.W.Dev) 1 puff INHALE BEDTIME [facility] Last Admin: 09/03/21 20:50 Dose: 1 puff Documented by: Heparin Sodium (Porcine) (Heparin Sodium,Porcine 5,000 Unit/Ml Vial) 5,000 unit SUBCUT Q12H [facility] Last Admin: 09/04/21 05:21 Dose: 5,000 unit Documented by: Ceftriaxone Sodium 1 gm/ (Sodium Chloride) 50 mls @ 100 mls/hr IV Q24H [facility] Last Admin: 09/04/21 11:53 Dose: 100 mls/hr Documented by: Azithromycin 500 mg/ Sodium (Chloride) 250 mls @ 125 mls/hr IV Q24H [facility] Last Infusion: 09/03/21 19:38 Dose: Infused Documented by: Lisinopril (Lisinopril 10 Mg Tablet) 10 mg PO BEDTIME [facility]; Protocol Last Admin: 09/03/21 21:39 Dose: 10 mg Documented by: Lorazepam (Lorazepam 1 Mg Tablet) 1 mg PO BEDTIME [facility] Last Admin: 09/03/21 21:40 Dose: 1 mg Documented by: Ondansetron HCl (Ondansetron Hcl 4 Mg/2 Ml Vial) 4 mg IVPUSH Q8H PRN PRN Reason: Nausea and Vomiting Pharmacy Consult (Consult Rx Perform Med Rec) 1 each MISCELLANE ONCE PRN PRN Reason: Consult order Salmeterol Xinafoate (Salmeterol Xinafoate 50 Mcg Blst.W.Dev) 1 puff INHALE BEDTIME [facility] Last Admin: 09/03/21 20:50 Dose: 1 puff Documented by: Sodium Chloride (0.9 % Sodium Chloride Flush 3 Ml Syringe) 3 ml IVFLUSH QSHIFT [facility] Last Admin: 09/04/21 07:32 Dose: 3 ml Documented by: Home Medications Medication Instructions Recorded Confirmed Last Taken Type atorvastatin 40 mg tablet 40 mg PO BEDTIME 07/26/20 09/03/21 09/02/21 History lisinopril 10 mg tablet 10 mg PO BEDTIME 07/26/20 09/03/21 09/02/21 History fluticasone propionate 220 1 puff INHALATION BEDTIME 09/03/21 09/03/21 09/01/21 History mcg/actuation HFA aerosol inhaler (Flovent HFA) lorazepam 1 mg tablet 1 mg PO BEDTIME 09/03/21 09/03/21 09/02/21 History salmeterol 50 mcg/dose blister 1 inh INHALATION BEDTIME 09/03/21 09/03/21 09/02/21 History powder for inhalation Physical Exam Vital Signs: Vital Signs: Last Vital Signs Temp 98.2 F 09/04/21 11:48 Pulse 74 09/04/21 11:48 Resp 20 09/04/21 11:48 BP 136/59 L 09/04/21 11:48 Pulse Ox 95 09/04/21 11:48 Body Mass Index 25.0 Const: General: cooperative, comfortable, no acute distress, alert and awake Nutritional Appearance: average body habitus Orientation/consciousness: patient oriented x3 Limitations: no limitations HENMT: Head: Yes normocephalic and Yes atraumatic Neck: Neck: Yes trachea midline, Yes supple and Yes no JVD Chest: Chest palpation & inspection: normal inspection of the chest Resp: Effort & Inspection: normal respiratory effort Auscultation: no rales, no wheezes and diminished lung sounds Cardio: Jugular venous distension: no JVD Palpation: normal PMI Rate: regular rate Rhythm: regular rhythm Heart sounds: S1 normal heart sound present, S2 normal heart sound present, no click, no gallops, no murmurs and no rubs GI: Auscultation: normal bowel sounds Skin: General skin exam: no rashes or lesions noted Neuro: General: patient oriented x3 and no focal motor deficits Extrem: General: Yes no clubbing, cyanosis or edema Psych: Appearance: grossly normal Results Labs and Meds Result diagrams: 09/04/21 06:25 09/04/21 06:25 Lab results: Laboratory Results - last 24 hr 09/03/21 09/03/21 09/03/21 10:16 13:20 17:14 WBC RBC Hgb Hct MCV MCH MCHC RDW Plt Count MPV Immature Gran % (Auto) Neut % (Auto) Lymph % (Auto) Bland % (Auto) Eos % (Auto) Baso % (Auto) Lymph # (Auto) Bland # (Auto) Eos # (Auto) Baso # (Auto) Abs Immat Gran (auto) Absolute Neuts (auto) Absolute Nucleated RBC Nucleated RBC % (auto) Sodium Potassium Chloride Carbon Dioxide Anion Gap BUN Creatinine Estim Creat Clear Calc Estimated GFR Random Glucose Calcium Total Bilirubin AST ALT Alkaline Phosphatase Troponin I High Sens 28.6 H* Total Protein Albumin Procalcitonin 1.13 Respiratory Panel Veronica See Note Adenovirus (Rapid PCR) Not Detected B.pert (TEM-PCR) Not Detected B.parapertussis DNA PCR Not Detected C. pneumoniae DNA (PCR) Not Detected Coronavirus OC43 (PCR) Not Detected Coronavirus HKU1 (PCR) Not Detected Coronavirus 229E (PCR) Not Detected Coronavirus NL63 (PCR) Not Detected Human Metapneumovir PCR Not Detected Influenza A (RT-PCR) Not Detected Influenza B (RT-PCR) Not Detected M. pneumoniae (PCR) Not Detected Parainfluenza 1 (PCR) Not Detected Parainfluenza 2 (PCR) Not Detected Parainfluenza 3 (PCR) Not Detected Parainfluenza 4 (PCR) Not Detected RSV (PCR) Not Detected Entero/Rhino (PCR) Not Detected SARS-CoV-2 RNA (RT-PCR) Not Detected 09/04/21 09/04/21 06:25 06:25 WBC 7.5 RBC 3.24 L Hgb 10.0 L D Hct 30.3 L MCV 93.5 MCH 30.9 MCHC 33.0 RDW 13.3 Plt Count 270 MPV 9.4 Immature Gran % (Auto) 0.9 H Neut % (Auto) 66.0 Lymph % (Auto) 21.1 Bland % (Auto) 7.3 Eos % (Auto) 4.3 H Baso % (Auto) 0.4 Lymph # (Auto) 1.6 Bland # (Auto) 0.6 Eos # (Auto) 0.3 Baso # (Auto) 0.0 Abs Immat Gran (auto) 0.07 H Absolute Neuts (auto) 4.9 Absolute Nucleated RBC 0.000 Nucleated RBC % (auto) 0.0 Sodium 138 Potassium 3.9 Chloride 107 Carbon Dioxide 22 Anion Gap 13 BUN 13 Creatinine 0.64 Estim Creat Clear Calc 58.7 Estimated GFR > 60 Random Glucose 94 Calcium 8.1 L D Total Bilirubin 0.7 AST 105 H ALT 99 H Alkaline Phosphatase 72 Troponin I High Sens Total Protein 5.2 L D Albumin 2.9 L D Procalcitonin Respiratory Panel Veronica Adenovirus (Rapid PCR) B.pert (TEM-PCR) B.parapertussis DNA PCR C. pneumoniae DNA (PCR) Coronavirus OC43 (PCR) Coronavirus HKU1 (PCR) Coronavirus 229E (PCR) Coronavirus NL63 (PCR) Human Metapneumovir PCR Influenza A (RT-PCR) Influenza B (RT-PCR) M. pneumoniae (PCR) Parainfluenza 1 (PCR) Parainfluenza 2 (PCR) Parainfluenza 3 (PCR) Parainfluenza 4 (PCR) RSV (PCR) Entero/Rhino (PCR) SARS-CoV-2 RNA (RT-PCR) Assessment and Plan (1) Elevated troponin: Status: Acute Nonspecific rise in troponin of unclear etiology with no cardiac symptoms and no EKG changes. Could be most likely related to pneumonia and respiratory infection. Possibility of viral infection and myocarditis cannot be entirely ruled out. However she has no chest pain and no obvious signs or symptoms of heart failure. Continue to manage her underlying pneumonia and respiratory illness. Advised to call us with any new symptoms. Patient is being planned to be discharged home which is appropriate at this point time. Will follow up with outpatient echocardiogram. Thank you for allowing us to partake in this patient. Procedures Date of Service Date of Service: 09/04/21
== END 2021-09-04 13:53 | disposition home or self-care (01) ==
LOC: HO.ED 14:35 → HO.EDOVER 15:12
PROVIDERS: Physician Assistant Medical; Admitting Provider Physician Assistant Medical; Emergency Provider Emergency Medicine; PCP Internal Medicine Medical Oncology; Visit Provider Physician Assistant Medical
DX: J18.9 Pneumonia, unspecified organism (principal); R77.8 Other specified abnormalities of plasma proteins; D64.9 Anemia, unspecified; J44.9 Chronic obstructive pulmonary disease, unspecified; R53.83 Other fatigue; R05.9 Cough, unspecified; I10 Essential (primary) hypertension; E78.5 Hyperlipidemia, unspecified; F41.9 Anxiety disorder, unspecified; Z87.891 Personal history of nicotine dependence; Z20.822 Contact with and (suspected) exposure to COVID-19; Z88.1 Allergy status to other antibiotic agents; Z88.2 Allergy status to sulfonamides; Z79.899 Other long term (current) drug therapy
CPT/HCPCS: 36415; 71045; 80053; 81001; 83605; 83735; 83880; 84145; 84484; 85025; 85610; 87040; 87086; 87633; 87635; 93005; 96361; 96365; 96366; 96367; 96372; 96375; 99219; 99285; 99291; J0456; J0696

== ENCOUNTER → 2021-09-08 09:26 | Outpatient (BNVA) | payer MEDICARE, SELFPAY | PROVIDERS: PCP Internal Medicine Medical Oncology; Visit Provider Internal Medicine | DX: J44.9 Chronic obstructive pulmonary disease, unspecified (principal); J18.9 Pneumonia, unspecified organism; F41.9 Anxiety disorder, unspecified | CPT/HCPCS: 99212 ==

== ENCOUNTER → 2021-12-31 09:13 | Outpatient (BNVA) | payer MEDICARE, SELFPAY | PROVIDERS: PCP Internal Medicine Medical Oncology; Visit Provider Internal Medicine | DX: J44.9 Chronic obstructive pulmonary disease, unspecified (principal); F41.9 Anxiety disorder, unspecified | CPT/HCPCS: 99212 ==

== ENCOUNTER 2022-04-03 10:04 | Emergency (ER) | payer MEDICARE, SELFPAY ==
--- NOTE | ~2022-04-03 | XR_ITS ---
EXAMINATION: XR CHEST CLINICAL INFORMATION: Shortness of breath COMPARISON: September 03, 2021 TECHNIQUE: PA and lateral views of the chest. FINDINGS: There is no evidence of significant acute parenchymal disease, pneumothorax, or significant pleural effusion. There is some blunting of the left posterior sulcus on lateral view. Heart normal size. No evidence of pulmonary edema. There is some hyperinflation with the appearance of COPD. Hiatal hernia is noted. There is calcification of the anterior longitudinal ligament within the thoracic spine. XR/XR chest 2V IMPRESSION: No significant acute parenchymal disease. Small hiatal hernia.
[2022-04-03 10:08] VITALS: BP 132/69; PULSE 82; RESP 19; TEMP 36.6; O2SAT 94; BMI 24.0
[2022-04-03] MEDS: Albuterol Sulfate (0.083%) 2.5 MG/3 ML VIAL.NEB 10 MG INHALE (10:40)
[2022-04-03 10:41] VITALS: PULSE 77; RESP 20; O2SAT 94
[2022-04-03 10:49] LABS: MANUAL DIFF FLAG NO
[2022-04-03 10:51] LABS: Basophils Absolute Auto 0.1 X10*3/uL (0.0-0.2); Basophils Percent Auto 1.1 % (0-2); Eosinophils Absolute Auto 0.7 X10*3/uL (0.0-0.4); Hematocrit 40.8 % (37.0-47.0); Hemoglobin 13.8 g/dl (12.0-16.0); Imm Gran Abs Auto 0.01 X10*3/uL (0.00-0.03); Imm Gran Pct Auto 0.2 % (0.0-0.4); Lymphocytes Absolute Auto 1.5 X10*3/uL (1.2-4.9); Lymphocytes Percent Auto 22.5 % (20-40); Mean Corpuscular HGB Conc 33.8 g/dl (31.0-35.0); Mean Corpuscular Hemoglobin 31.2 pg (27.0-33.0); Mean Corpuscular Volume 92.3 fL (80.0-98.0); Monocytes Absolute Auto 0.5 X10*3/uL (0.1-1.2); Neutrophils Absolute Auto 3.9 x10*3/uL (2.0-8.3); Neutrophils Percent Auto 59.2 % (45-73); Platelet Count 226 X10*3/uL (160-400); Red Blood Count 4.42 X10*6/uL (4.20-5.50); Red Cell Distribution Width 12.9 % (11.0-16.0); White Blood Count 6.6 X10*3/uL (4.8-10.8)
[2022-04-03] MEDS: Magnesium Sulfate/H2O 2 GM/50 ML PIGGYBACK IV (10:59)
[2022-04-03 11:05] LABS: Alanine Aminotransferase 24 U/L (0-31); Albumin Level 4.2 g/dL (3.5-5.0); Alkaline Phosphatase 74 U/L (39-117); Anion Gap 12 (12-20); Aspartate Amino Transferase 29 U/L (5-31); Bilirubin Total 0.8 mg/dL (0.0-1.0); Blood Urea Nitrogen 11 mg/dL (9-16); Calcium 9.6 mg/dL (8.4-10.2); Carbon Dioxide 24 mmol/L (22-29); Chloride 103 mmol/L (96-108); Creatinine Clr Calc Pharmacy 48.5; Estimated Glomerular Filt Rate > 60; Glucose Random 110 mg/dL (60-115); Magnesium 1.9 mg/dL (1.6-2.6); Potassium 4.1 mmol/L (3.3-5.1); Sodium 135 mmol/L (135-145); Total Protein 7.1 g/dL (6.5-8.0)
[2022-04-03 11:06] LABS: IDNOW Serial# 9DB6401D; Influenza A Negative (Negative); Influenza B2 Negative (Negative)
[2022-04-03 11:07] LABS: COVID-19 Test Negative (Negative); IDNOW Serial# 16C4AD1C
[2022-04-03 11:11] LABS: B Type Natriuretic Peptide < 10 pg/mL (<100)
[2022-04-03] MEDS: methylPREDNISolone Sod Succ 125 MG/2 ML VIAL IVPUSH (11:20)
--- NOTE | 2022-04-03 11:32 | PC.NURSE ---
Pt in no distress and speaking in full clear sentences pt has very slight exp wheeze on right otherwise ls clear. pt is nsr in lead 2, skin wpd. 20 ga iv placed l ac.
--- NOTE | 2022-04-03 12:07 | ED.ASTHMA ---
HPI - Asthma General Chief Complaint: Upper Respiratory Symptoms Stated Complaint: flu like symptoms/possible Pneumonia Time Seen by Provider: 04/03/22 10:16 Source: patient and family ( at bedside) Mode of arrival: ambulatory Limitations: no limitations History of Present Illness HPI Narrative: 76-year-old female with a past medical history of asthma/COPD, anxiety, hyperlipidemia and hypertension currently on albuterol inhaler and Salmeterol presenting to the ED with complaints of nasal congestion/rhinorrhea with a dry cough with increasing shortness of breath/wheezing over the past week despite using her inhalers. She denies any fevers, chills, dizziness, headaches, neck pain/stiffness, trouble swallowing, sore throat, loss of taste or smell, ear pain, dyspnea on exertion, orthopnea, chest pain, palpitations, paresthesias, nausea/vomiting/diarrhea constipation, abdominal pain, back pain, dysuria, hematuria, abnormal vaginal discharge, lower extremity edema or calf tenderness, recent travel or sick contacts, recent mobilization or surgery, history of DVT or PE, history of cancer or hypercoagulation disorder any other symptoms complaints or concerns at this time. She reports that she is vaccinated to COVID and boosted. She reports that she is vaccinated to the flu MD complaint: asthma attack , shortness of breath and wheezing Onset (ago): week(s) (1) Severity: moderate and worse than usual Context: none known Associated symptoms: dry cough Asthma History: childhood onset Treatments Prior to Arrival: inhaled bronchodilator and inhaled steroid Related Data Current Asthma Therapy: inhaled bronchodilator and inhaled steroid Home Medications Medication Instructions Recorded Confirmed atorvastatin 40 mg tablet 40 mg PO BEDTIME 07/26/20 09/03/21 lisinopril 10 mg tablet 10 mg PO BEDTIME 07/26/20 09/03/21 fluticasone propionate 220 1 puff INHALATION BEDTIME 09/03/21 09/03/21 mcg/actuation HFA aerosol inhaler (Flovent HFA) lorazepam 1 mg tablet 1 mg PO Q6H PRN tab 09/08/21 sertraline 50 mg tablet 50 mg PO DAILY 12/31/21 Previous Rx's Medication Instructions Recorded lorazepam 1 mg tablet 1 mg PO BID PRN 30 Days #60 tab 12/31/21 MDD /shortness of breath lorazepam 1 mg tablet 1 mg PO BID PRN 30 Days #60 tab 02/17/22 albuterol sulfate 90 mcg/actuation 2 puff INHALATION Q6H PRN #8.5 g 02/26/22 aerosol inhaler salmeterol 50 mcg/dose blister 1 inh INHALATION BID #60 ea 03/04/22 powder for inhalation (Serevent Diskus) albuterol sulfate 0.63 mg/3 mL 0.63 mg (3 mL) INHALATION QID PRN 04/03/22 solution for nebulization #75 ml albuterol sulfate 90 mcg/actuation 1 inh INHALATION QID PRN #8.5 g 04/03/22 aerosol inhaler amoxicillin 875 mg-potassium 1 tab PO BID 10 Days #20 tab 04/03/22 clavulanate 125 mg tablet codeine 10 mg-guaifenesin 100 mg/5 5 ml PO Q6H PRN #120 ml 04/03/22 mL oral liquid (Guaifenesin AC) nebulizers (AeroEclipse II #1 ea 04/03/22 Nebulizer) prednisone 20 mg tablet 40 mg PO DAILY 5 Days #10 tab 04/03/22 Allergies Allergy/AdvReac Type Severity Reaction Status Date / Time levofloxacin [Levaquin] Allergy Unknown Unknown Verified 12/31/21 09:40 Sulfa (Sulfonamide Allergy Unknown Unknown Verified 12/31/21 09:36 Antibiotics) Review of Systems Review of Systems: Constitutional : denies med noncompliance, no history of PE or DVT, denies recent travel, No Fever, No Chills ENT/Mouth : No Hoarseness, No sore throat, + Rhinorrhea, + Nasal congestion, No Sinus Pressure, No Ear Pain, No stridor, Eyes: No Redness, No Discharge, No Vision Changes Cardiovascular : No Chest Pain, No SOB, No Dyspnea on Exertion, No Edema, no pleurisy, Respiratory : + Cough, + wheezing, No Sputum, no stridor, no hemoptysis, Gastrointestinal : No Nausea, No Vomiting, No Diarrhea, No abdominal Pain Genitourinary : No Dysuria, No Hematuria Musculoskeletal : No joint pain/swelling, No Myalgias Extremities: no extremity swelling /pain Skin : No rash, no itching, no swelling Neuro : No Weakness, No Numbness, No Headache, No Dizziness, No Paresthesias Psych : No anxiety, depression Heme/Lymph: No Bruising, No Bleeding Endocrine : No Polyuria, No Polydipsia Yes all other systems are reviewed and are negative [facility] Past Medical History Attestation statement: The following information was validated with the patient. Source: old records reviewed, obtained from family and nursing notes reviewed Medical History Anxiety COPD (chronic obstructive pulmonary disease) HLD (hyperlipidemia) HTN (hypertension) Social History Social History Alcohol intake: current Alcohol intake frequency: a few times a month Patient Tobacco Use Status: Former Tobacco user Years Smoked: 1979 Advance Directives: Yes Advance Directives Information Provided: No Advance Directives on File: No service: No Current occupational status: retired Physical Exam Vital Signs: Vital Signs: Last Vital Signs Temp 98 F 04/03/22 10:08 Pulse 77 04/03/22 10:41 Resp 20 04/03/22 10:41 BP 132/69 04/03/22 10:08 Pulse Ox 94 04/03/22 10:08 BMI result Body Mass Index 24.0 vital signs have been reviewed as normal and appeared to be correct. Blood pressure normal. Heart rate normal. Respiration rate normal. Temperature normal. Oxygen saturation normal. Appearance: Alert. Oriented X3. No acute distress. Head: Normal external exam. Normocephalic. Atraumatic. Eyes: PERRLA. EOMI. Conjunctiva and sclera normal. Eyelids normal. ENT: EAC normal. TM's Normal. Pharynx normal. Uvula midline. Moist mucous membranes. No lesions/ulcerations or masses noted on the tongue. Normal voice. No trismus noted. No drooling noted. No muffled voice noted. Neck: Normal inspection. Neck supple. FROM. No adenopathy. Thyroid Normal. No meningeal signs. No neck mass noted. CVS: Normal heart rate and rhythm. Heart sound normal. Pulses normal throughout. No murmurs/rales/gallops. Respiratory: Mild respiratory distress with decreased breath sounds and inspiratory and expiratory wheezing throughout painless inspiration. No rales/rhonchi noted. Chest is nontender. No accessory muscle usage noted no crepitus is noted Abdomen: Soft and nontender. Bowel sounds normal in all 4 quadrants. No distention noted. No organomegaly noted. No visible injury noted. Back: No CVA tenderness. Full range of motion noted. Nontender. No signs of trauma. Patient neuro intact bilaterally and distally on all 4 extremities. Patient's reflexes intact bilaterally and distally on all 4 extremities. No rashes/lesion/induration/fluctuance or signs of infection noted. Skin: Skin warm and dry. Normal skin color. Normal skin turgor. No rashes/lesions/lacerations noted. Extremities: No lower extremity edema. No calf tenderness is noted. Extremities exhibit normal range of motion and nontender. Neuro: Oriented X 3. No motor deficit. No sensory deficit. Reflexes normal. Normal steady gait. No focal neuro deficits noted. CN's II-XII intact bilaterally? Vascular: + radial pulses/+ 2 distal pedal pulses/+2 dorsalis pedis b/l. Normal cap refill. No cyanosis noted to upper extremity nails and lower extremity toes nails. Course Course Course Narrative: 10:30am - 76-year-old female with a past medical history of asthma/COPD currently on albuterol inhaler and Salmeterol presenting to the ED with complaints of nasal congestion/rhinorrhea with a dry cough with increasing shortness of breath/wheezing over the past week despite using her inhalers. Plan: Labs, chest x-ray, COVID swab, influenza swab. Provide 125 mg of IV Solu-Medrol, 2 g of magnesium and an hour long breathing treatment and re-evaluate Reevaluation(s) Reevaluation #1: - all labs within normal limits. Patient negative for COVID and flu. Chest x-ray within normal limits no evidence of pneumonia. Patient reports she feels completely better I did offer admission although she reports that she does not want to be admitted she reports that she feels better and she does not have pneumonia therefore she would rather go home. Therefore at this time will DC home with asthma/bronchitis medication instructions return if any new or worsening symptoms to follow up with primary care provider. Patient and at bedside understand agree this plan Time: 12:16 [facility] - Asthma Medical Records Attestation: I reviewed the patient's medical records. Lab Data Attestation: I reviewed the patient's lab results. Result diagrams: 04/03/22 10:45 04/03/22 10:45 Labs: Lab Results 06/02/1904/03/22 04/03/22 Range/Units 10:45 10:45 10:45 WBC 6.6 (4.8-10.8) X10*3/uL RBC 4.42 D (4.20-5.50) X10*6/uL Hgb 13.8 D (12.0-16.0) g/dl Hct 40.8 D (37.0-47.0) % MCV 92.3 (80.0-98.0) fL MCH 31.2 (27.0-33.0) pg MCHC 33.8 (31.0-35.0) g/dl RDW 12.9 (11.0-16.0) % Plt Count 226 (160-400) X10*3/uL MPV 9.0 L (9.4-12.3) fL Immature Gran % (Auto) 0.2 (0.0-0.4) % Neut % (Auto) 59.2 (45-73) % Lymph % (Auto) 22.5 (20-40) % Edwards % (Auto) 7.0 (2-11) % Eos % (Auto) 10.0 H (0-4) % Baso % (Auto) 1.1 (0-2) % Lymph # (Auto) 1.5 (1.2-4.9) X10*3/uL Edwards # (Auto) 0.5 (0.1-1.2) X10*3/uL Eos # (Auto) 0.7 H (0.0-0.4) X10*3/uL Baso # (Auto) 0.1 (0.0-0.2) X10*3/uL Abs Immat Gran (auto) 0.01 (0.00-0.03) X10*3/uL Absolute Neuts (auto) 3.9 (2.0-8.3) x10*3/uL Absolute Nucleated RBC 0.000 (0.0-0.012) X10*3/uL Nucleated RBC % (auto) 0.0 (0.0-0.2) /100WBC Sodium 135 (135-145) mmol/L Potassium 4.1 (3.3-5.1) mmol/L Chloride 103 (96-108) mmol/L Carbon Dioxide 24 (22-29) mmol/L Anion Gap 12 (12-20) BUN 11 (9-16) mg/dL Creatinine 0.76 (0.5-1.4) mg/dL Estim Creat Clear Calc 48.5 Estimated GFR > 60 Random Glucose 110 (60-115) mg/dL Calcium 9.6 D (8.4-10.2) mg/dL Magnesium 1.9 (1.6-2.6) mg/dL Total Bilirubin 0.8 (0.0-1.0) mg/dL AST 29 D (5-31) U/L ALT 24 (0-31) U/L Alkaline Phosphatase 74 (39-117) U/L B-Natriuretic Peptide (<100) pg/mL Total Protein 7.1 D (6.5-8.0) g/dL Albumin 4.2 D (3.5-5.0) g/dL COVID-19 (TOM) (Negative) COVID-19 Clin Com Influenza Type A (RUBI) Negative (Negative) Influenza Type B (RUBI) Negative (Negative) Influenza A & B Note See Note 04/03/22 04/03/22 Range/Units 10:45 10:45 WBC (4.8-10.8) X10*3/uL RBC (4.20-5.50) X10*6/uL Hgb (12.0-16.0) g/dl Hct (37.0-47.0) % MCV (80.0-98.0) fL MCH (27.0-33.0) pg MCHC (31.0-35.0) g/dl RDW (11.0-16.0) % Plt Count (160-400) X10*3/uL MPV (9.4-12.3) fL Immature Gran % (Auto) (0.0-0.4) % Neut % (Auto) (45-73) % Lymph % (Auto) (20-40) % Edwards % (Auto) (2-11) % Eos % (Auto) (0-4) % Baso % (Auto) (0-2) % Lymph # (Auto) (1.2-4.9) X10*3/uL Edwards # (Auto) (0.1-1.2) X10*3/uL Eos # (Auto) (0.0-0.4) X10*3/uL Baso # (Auto) (0.0-0.2) X10*3/uL Abs Immat Gran (auto) (0.00-0.03) X10*3/uL Absolute Neuts (auto) (2.0-8.3) x10*3/uL Absolute Nucleated RBC (0.0-0.012) X10*3/uL Nucleated RBC % (auto) (0.0-0.2) /100WBC Sodium (135-145) mmol/L Potassium (3.3-5.1) mmol/L Chloride (96-108) mmol/L Carbon Dioxide (22-29) mmol/L Anion Gap (12-20) BUN (9-16) mg/dL Creatinine (0.5-1.4) mg/dL Estim Creat Clear Calc Estimated GFR Random Glucose (60-115) mg/dL Calcium (8.4-10.2) mg/dL Magnesium (1.6-2.6) mg/dL Total Bilirubin (0.0-1.0) mg/dL AST (5-31) U/L ALT (0-31) U/L Alkaline Phosphatase (39-117) U/L B-Natriuretic Peptide < 10 (<100) pg/mL Total Protein (6.5-8.0) g/dL Albumin (3.5-5.0) g/dL COVID-19 (TOM) Negative (Negative) COVID-19 Clin Com See Note Influenza Type A (RUBI) (Negative) Influenza Type B (RUBI) (Negative) Influenza A & B Note Imaging Data Chest x-ray: Attestation: I personally reviewed and interpreted this imaging study as follows: Radiologist's impression: FINDINGS: There is no evidence of significant acute parenchymal disease, pneumothorax, or significant pleural effusion. There is some blunting of the left posterior sulcus on lateral view. Heart normal size. No evidence of pulmonary edema. There is some hyperinflation with the appearance of COPD. Hiatal hernia is noted. There is calcification of the anterior longitudinal ligament within the thoracic spine. XR/XR chest 2V IMPRESSION: No significant acute parenchymal disease. Small hiatal hernia. Critical Care Time Critical Care Time Critical Care Time: Yes Total Critical Care Time: 60 Attestation: I personally attest to this time spent taking care of the patient Discharge Plan Discharge Clinical Impression: Acute exacerbation of COPD with asthma, Bronchitis Patient Disposition: Home, Self-Care Instructions: Asthma (ED), COPD (Chronic Obstructive Pulmonary Disease) (ED) Prescriptions: New (DME) AeroEclipse II Nebulizer Misc See Rx Instructions .ROUTE .MEDSUPPLY Qty: 1 0RF Rx Instructions: As directed albuterol sulfate 0.63 mg/3 mL solution for nebulization 0.63 mg inhalation QID PRN (Reason: shortness of breath or wheezing) Qty: 75 0RF albuterol sulfate 90 mcg/actuation HFA aerosol inhaler 1 inh inhalation QID PRN (Reason: shortness of breath or wheezing) Qty: 8.5 0RF codeine-guaifenesin [Guaifenesin AC] 10-100 mg/5 mL liquid 5 ml PO Q6H PRN (Reason: cold symptoms) Qty: 120 0RF prednisone 20 mg tablet 40 mg PO DAILY 5 Days Qty: 10 0RF amoxicillin-pot clavulanate 875-125 mg tablet 1 tab PO BID 10 Days Qty: 20 0RF No Action lorazepam 1 mg tablet 1 mg PO BID PRN (Reason: anxiety) 30 Days Qty: 60 2RF albuterol sulfate 90 mcg/actuation HFA aerosol inhaler 2 puff inhalation Q6H PRN (Reason: for wheezing) Qty: 8.5 2RF Serevent Diskus 50 mcg/dose blister with device 1 inh inhalation BID Qty: 60 5RF Flovent HFA 220 mcg/actuation HFA aerosol inhaler 1 puff inhalation BEDTIME 0RF lorazepam 1 mg tablet 1 mg PO Q6H PRN0RF lisinopril 10 mg tablet 10 mg PO BEDTIME 0RF atorvastatin 40 mg tablet 40 mg PO BEDTIME 0RF sertraline 50 mg tablet 50 mg PO DAILY 0RF lorazepam 1 mg tablet 1 mg PO BID MDD /shortness of breath PRN (Reason: anxiety) 30 Days Qty: 60 2RF Referrals: Mervin Grissom MD [Primary Care Provider] - 2 days
[2022-04-03 12:46] VITALS: BP 151/60; PULSE 74; RESP 16; O2SAT 97
== END 2022-04-03 12:54 | disposition home or self-care (01) ==
PROVIDERS: Physician Assistant Medical; Emergency Provider Student in an Organized Health Care Education/Training Program; PCP Internal Medicine Medical Oncology
DX: J45.901 Unspecified asthma with (acute) exacerbation (principal); J44.1 Chronic obstructive pulmonary disease with (acute) exacerbation; R06.02 Shortness of breath; Z20.822 Contact with and (suspected) exposure to COVID-19; Z79.899 Other long term (current) drug therapy; Z87.891 Personal history of nicotine dependence
CPT/HCPCS: 71046; 80053; 83735; 83880; 85025; 87502; 87635; 94640; 94644; 99281; 99283; J2930; J3475

== ENCOUNTER → 2022-04-06 09:35 | Outpatient (BNVA) | payer MEDICARE, SELFPAY | PROVIDERS: PCP Internal Medicine Medical Oncology; Visit Provider Internal Medicine | DX: J44.9 Chronic obstructive pulmonary disease, unspecified (principal); F41.9 Anxiety disorder, unspecified; Z79.899 Other long term (current) drug therapy | CPT/HCPCS: 94010; 99212 ==

== ENCOUNTER → 2022-08-12 09:16 | Outpatient (BNVA) | payer MEDICARE, SELFPAY | PROVIDERS: PCP Internal Medicine Medical Oncology; Visit Provider Internal Medicine | DX: J44.9 Chronic obstructive pulmonary disease, unspecified (principal); F41.9 Anxiety disorder, unspecified | CPT/HCPCS: 99212 ==

== ENCOUNTER → 2022-12-15 09:23 | Outpatient (BNVA) | payer MEDICARE, SELFPAY | PROVIDERS: PCP Internal Medicine Medical Oncology; Visit Provider Internal Medicine | DX: J44.9 Chronic obstructive pulmonary disease, unspecified (principal); F41.9 Anxiety disorder, unspecified | CPT/HCPCS: 99212 ==

== ENCOUNTER → 2023-01-13 09:05 | Outpatient (BNVA) | payer MEDICARE, SELFPAY | PROVIDERS: PCP Internal Medicine Medical Oncology; Visit Provider Internal Medicine | DX: J44.9 Chronic obstructive pulmonary disease, unspecified (principal); F41.9 Anxiety disorder, unspecified; Z79.52 Long term (current) use of systemic steroids; Z79.899 Other long term (current) drug therapy | CPT/HCPCS: 99212 ==

== ENCOUNTER → 2023-03-15 09:15 | Outpatient (BNVA) | payer MEDICARE, SELFPAY | PROVIDERS: PCP Internal Medicine Medical Oncology; Visit Provider Internal Medicine | DX: J44.9 Chronic obstructive pulmonary disease, unspecified (principal); F41.9 Anxiety disorder, unspecified | CPT/HCPCS: 99212 ==

== ENCOUNTER 2023-07-19 09:20 | Outpatient (AMB) | payer MEDICARE, SELFPAY ==
--- NOTE | 2023-07-19 09:23 | A.OFFVIS_ITS ---
Intake Vital Signs 07/19/23 09:24 Height 5 ft Weight 125 lb BMI 24.4 BP 102/60 Blood Pressure Location Lt brachial Position Sitting Pulse 57 Pulse Source Pulse Oximeter Pulse Oximetry (%) 97 Oxygen Delivery Method Room Air Intake Visit Reasons: COPD Intake Note: pt is here for follow up and states she is feeling good with breathing as long she stays calm. 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 Allergies levofloxacin [Levaquin] Allergy (Unknown, Verified 07/19/23 09:32) Unknown Sulfa (Sulfonamide Antibiotics) Allergy (Unknown, Verified 07/19/23 09:32) Unknown Medication List - Last Reconciled 07/19/23 by Toya Amezcua MD albuterol sulfate 0.63 mg (3 mL) inhalation QID PRN albuterol sulfate 90 mcg/actuation 2 puffs PO Q6H PRN 30 days aspirin 81 mg PO DAILY atorvastatin 80 mg PO BEDTIME clopidogrel 75 mg PO DAILY Flovent HFA 220 mcg/actuation (fluticasone propionate) 2 puffs PO BID 30 days NS lorazepam 1 mg PO BID PRN 30 days nebulizers (AeroEclipse II Nebulizer) As directed prednisone 5 mg PO Q OTHER DAY 90 days salmeterol (Serevent Diskus) 1 inh inhalation BID sertraline 100 mg PO DAILY Do you need a note to return to daycare/school/sports/work: No HPI COPD HPI Details 78 years old very pleasant female with l ongstanding history of chronic obstructive pulmonary disease, mild depression and ongoing anxiety, is here for her routine follow-up. Breathing santana has remained. Stable without any acute exacerbation However she does get short of breath on walking up hill or climbing stairs. Cough is only minimal, No wheezing. Are 78 years age she remains as active as possible. [facility] Medical History HTN (hypertension) HLD (hyperlipidemia) Anxiety COPD (chronic obstructive pulmonary disease) Social History Alcohol intake: current Alcohol intake frequency: a few times a month Patient Tobacco Use Status: Former Tobacco user Years Smoked: 1979 service: No Current occupational status: retired Review of Systems Const All systems reviewed & are unremarkable except as noted in HPI and below Eyes Reports no additional complaints ENT Reports no additional complaints Card Denies chest pain, Reports irregular heart rhythm, Denies leg edema and Reports dyspnea on exertion (Mild) Resp Reports cough, Reports dyspnea on exertion (Mild) and Reports wheezing GI Reports other (Appetite somewhat poor) Reports no additional complaints Musc Reports no additional complaints Skin/Breast Reports system reviewed and no additional complaints, except as documented Neuro Reports no additional complaints Psych Reports anxiety Aller/Immun Reports wheezing Physical Exam Vital Signs: Last Vital Signs Pulse 57 07/19/23 09:24 BP 102/60 07/19/23 09:24 Pulse Ox 97 07/19/23 09:24 Oxygen Delivery Method Room Air 07/19/23 09:24 BMI result Body Mass Index 24.4 Const General: healthy appearing (Anxious, and somewhat depressed.), comfortable, no acute distress, alert and awake Orientation/consciousness: patient oriented x3 HEENT Head: Yes normal to inspection General nose exam: No nasal polyps present and No nasal discharge present Face and sinus: Yes sinuses nontender Mouth: oropharynx normal Throat: Yes posterior oropharynx normal Eyes General: appearance normal, both eyes and all related structures Neck Neck: Yes normal visual inspection, Yes no lymphadenopathy, Yes trachea midline and Yes no JVD Thyroid: Thyroid normal Chest Chest palpation & inspection: normal inspection of the chest, normal palpation of entire chest wall and no tenderness Resp Other: Percussion note resonant, breath sounds are distant on both sides with prolonged expiratory phase. No wheezes crepitations or rhonchi are heard today. Cardio Palpation: normal PMI Rate: regular rate Rhythm: regular rhythm Heart sounds: no gallops and no murmurs Peripheral pulses: Peripheral pulses 2+ throughout GI Palpation (GI): Soft to palpation, nontender, No hepatosplenomegaly present and no masses Auscultation: normal bowel sounds Back/Spine/Pelvis Thoracic/Lumbar Spine: thoracic and lumbar spine normal to inspection Skin General skin exam: no rashes or lesions noted Neuro General: patient oriented x3 and no focal motor deficits Cranial nerves: Yes CN's II-XII intact bilaterally Extrem General: Yes normal to inspection, Yes no clubbing, cyanosis or edema and Yes no calf tenderness Psych Appearance: grossly normal, well kempt and other (Not very anxious at this time ) Speech and movement: Normal speech and movement present Assessment & Plan Assessment & Plan (1) COPD (chronic obstructive pulmonary disease): Comment: MILD TO MODERTAE ,FAIRLY WELL CONTROLLED AT THIS TIME. [place] : CONTINUE REGULAR MEDICAL REGIMEN FOLLOWS: FLOVENT-220 2 PUFFS BID , MAY CUT DOWN TO ONE PUFF BID IF SYMPTOMS ARE UNDER CONTROL . SEREVENT-50 ONE INH BID PROAIR 2 PUFFS Q 4-6 HRS PRN CONT, PREDNIOSNE 5 MG PO ON ALTERNATE DAYS . USE ALBUTEROL SOLUTION 0.63 MG / 3 ML Q 4=6 HRS PRN Code(s): J44.9 - Chronic obstructive pulmonary disease, unspecified (2) Anxiety: Comment: SUFFERS FROM CHRONIC ANXIETY DISORDER. FREQUENT ATTACKS OF ANXIETY/PANIC AND SHORTNESS OF BREATH. ALSO FINDS DIFFICULT TO SLEEP WITHOUT LORAZEPAM. RX : LORAZEPAM 1MG HALF OR ONE TAB PO Q 6 HRS PRN FOR ANXIETY , ( UP TO 2 tabs /DAY) DO NOT ABUSE . CONTINUE SERTRALINE 100 MG DAILY, PRESCRIBED BY DR. TSANG. Code(s): F41.9 - Anxiety disorder, unspecified Coding Level of Care Code Est Pt Level 3 (19540) Diagnoses COPD (chronic obstructive pulmonary disease) J44.9 Anxiety F41.9
[2023-07-19 09:24] VITALS: BP 102/60; PULSE 57; O2SAT 97; BMI 24.4
== END 2023-07-19 09:43 | disposition home or self-care (01) ==
PROVIDERS: PCP Internal Medicine Medical Oncology; Visit Provider Internal Medicine
DX: J44.9 Chronic obstructive pulmonary disease, unspecified (principal); F41.9 Anxiety disorder, unspecified
CPT/HCPCS: 99213

== ENCOUNTER → 2023-07-19 09:20 | Outpatient (BNVA) | payer MEDICARE, SELFPAY | PROVIDERS: Visit Provider Internal Medicine | DX: J44.9 Chronic obstructive pulmonary disease, unspecified (principal); F41.9 Anxiety disorder, unspecified | CPT/HCPCS: 99212 ==

== ENCOUNTER 2023-10-13 09:51 | Outpatient (AMB) | payer MEDICARE, SELFPAY ==
[2023-10-13 10:03] VITALS: BP 110/58; PULSE 58; O2SAT 96; BMI 23.6
--- NOTE | 2023-10-13 10:03 | A.OFFVIS_ITS ---
Intake Vital Signs 10/13/23 10:03 Height 5 ft Weight 121 lb BMI 23.6 BP 110/58 L Blood Pressure Location Lt brachial Position Sitting Pulse 58 Pulse Source Pulse Oximeter Pulse Oximetry (%) 96 Oxygen Delivery Method Room Air Intake Visit Reasons: COPD Intake Note: pt is here for follow up and states she just got over something, negative covid, back to baseline, always short when moving around. 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 Allergies levofloxacin [Levaquin] Allergy (Unknown, Verified 10/13/23 10:36) Unknown Sulfa (Sulfonamide Antibiotics) Allergy (Unknown, Verified 10/13/23 10:36) Unknown Medication List - Last Reconciled 10/13/23 by Toya Amezcua MD albuterol sulfate 0.63 mg (3 mL) inhalation QID PRN albuterol sulfate 90 mcg/actuation 2 puffs PO Q6H PRN 30 days aspirin 81 mg PO DAILY atorvastatin 80 mg PO BEDTIME clopidogrel 75 mg PO DAILY Flovent HFA 220 mcg/actuation (fluticasone propionate) 2 puffs PO BID 30 days NS lorazepam 1 mg PO BID PRN 30 days nebulizers (AeroEclipse II Nebulizer) As directed prednisone 5 mg PO Q OTHER DAY 90 days salmeterol (Serevent Diskus) 1 inh inhalation BID sertraline 100 mg PO DAILY Do you need a note to return to daycare/school/sports/work: No HPI COPD HPI Details 78 years old very pleasant female is her e for her routine follow-up after 3 months. She is being treated for asthma/COPD. On her current regimen it is staying very stable, She has had no acute respiratory infection. Her anxiety is under controlled with use of lorazepam 1 mg at bedtime, and she uses only p.r.n. during the daytime. She remains fully alert and active, [facility] Medical History HTN (hypertension) HLD (hyperlipidemia) Anxiety COPD (chronic obstructive pulmonary disease) Social History Alcohol intake: current Alcohol intake frequency: a few times a month Patient Tobacco Use Status: Former Tobacco user Years Smoked: 1979 service: No Current occupational status: retired Review of Systems Const All systems reviewed & are unremarkable except as noted in HPI and below Eyes Reports no additional complaints ENT Reports no additional complaints Card Denies chest pain, Reports irregular heart rhythm, Denies leg edema and Reports dyspnea on exertion (Mild) Resp Reports cough, Reports dyspnea on exertion (Mild) and Reports wheezing GI Reports other (Appetite somewhat poor) Reports no additional complaints Musc Reports no additional complaints Skin/Breast Reports system reviewed and no additional complaints, except as documented Neuro Reports no additional complaints Psych Reports anxiety Aller/Immun Reports wheezing Physical Exam Vital Signs: Last Vital Signs Pulse 58 10/13/23 10:03 BP 110/58 L 10/13/23 10:03 Pulse Ox 96 10/13/23 10:03 Oxygen Delivery Method Room Air 10/13/23 10:03 BMI result Body Mass Index 23.6 Const General: healthy appearing (Anxious, and somewhat depressed.), comfortable, no acute distress, alert and awake Orientation/consciousness: patient oriented x3 HEENT Head: Yes normal to inspection General nose exam: No nasal polyps present and No nasal discharge present Face and sinus: Yes sinuses nontender Mouth: oropharynx normal Throat: Yes posterior oropharynx normal Eyes General: appearance normal, both eyes and all related structures Neck Neck: Yes normal visual inspection, Yes no lymphadenopathy, Yes trachea midline and Yes no JVD Thyroid: Thyroid normal Chest Chest palpation & inspection: normal inspection of the chest, normal palpation of entire chest wall and no tenderness Resp Other: Percussion note resonant, breath sounds are distant on both sides with prolonged expiratory phase. No wheezes crepitations or rhonchi are heard today. Cardio Palpation: normal PMI Rate: regular rate Rhythm: regular rhythm Heart sounds: no gallops and no murmurs Peripheral pulses: Peripheral pulses 2+ throughout GI Palpation (GI): Soft to palpation, nontender, No hepatosplenomegaly present and no masses Auscultation: normal bowel sounds Back/Spine/Pelvis Thoracic/Lumbar Spine: thoracic and lumbar spine normal to inspection Skin General skin exam: no rashes or lesions noted Neuro General: patient oriented x3 and no focal motor deficits Cranial nerves: Yes CN's II-XII intact bilaterally Extrem General: Yes normal to inspection, Yes no clubbing, cyanosis or edema and Yes no calf tenderness Psych Appearance: grossly normal, well kempt and other (Not very anxious at this time ) Speech and movement: Normal speech and movement present Assessment & Plan Assessment & Plan (1) COPD (chronic obstructive pulmonary disease): Comment: MILD TO MODERTAE ,FAIRLY WELL CONTROLLED AT THIS TIME. Code(s): J44.9 - Chronic obstructive pulmonary disease, unspecified Plan: [place] : CONTINUE REGULAR MEDICAL REGIMEN FOLLOWS: FLOVENT-220 2 PUFFS BID , MAY CUT DOWN TO ONE PUFF BID IF SYMPTOMS ARE UNDER CONTROL . SEREVENT-50 ONE INH BID PROAIR 2 PUFFS Q 4-6 HRS PRN or USE ALBUTEROL SOLUTION 0.63 MG / 3 ML Q 4=6 HRS PRN Prednisone 5 mg on alternate days . (2) Anxiety: Comment: SUFFERS FROM CHRONIC ANXIETY DISORDER. FREQUENT ATTACKS OF ANXIETY/PANIC AND SHORTNESS OF BREATH. ALSO FINDS DIFFICULT TO SLEEP WITHOUT LORAZEPAM. Code(s): F41.9 - Anxiety disorder, unspecified Plan: RX : LORAZEPAM 1MG HALF OR ONE TAB PO Q 6 HRS PRN FOR ANXIETY , ( UP TO 2 tabs /DAY) DO NOT ABUSE . CONTINUE SERTRALINE 100 MG DAILY, PRESCRIBED BY DR. TSAGN. Coding Level of Care Code Est Pt Level 3 (45814) Diagnoses COPD (chronic obstructive pulmonary disease) J44.9 Anxiety F41.9
== END 2023-10-13 10:39 | disposition home or self-care (01) ==
PROVIDERS: PCP Internal Medicine Medical Oncology; Visit Provider Internal Medicine
DX: J44.9 Chronic obstructive pulmonary disease, unspecified (principal); F41.9 Anxiety disorder, unspecified
CPT/HCPCS: 99213

== ENCOUNTER → 2023-10-13 09:51 | Outpatient (BNVA) | payer MEDICARE, SELFPAY | PROVIDERS: PCP Internal Medicine Medical Oncology; Visit Provider Internal Medicine | DX: J44.9 Chronic obstructive pulmonary disease, unspecified (principal); F41.9 Anxiety disorder, unspecified | CPT/HCPCS: 99212 ==

== ENCOUNTER 2024-01-10 10:04 | Outpatient (AMB) | payer MEDICARE, SELFPAY ==
[2024-01-10 10:08] VITALS: BP 104/50; PULSE 61; O2SAT 97; BMI 23.2
--- NOTE | 2024-01-10 10:08 | MHC.OFFVIS ---
Intake Vital Signs 01/10/24 10:08 Height 5 ft Weight 119 lb 0.794 oz BMI 23.2 BP 104/50 L Blood Pressure Location Lt brachial Position Sitting Pulse 61 Pulse Source Pulse Oximeter Pulse Oximetry (%) 97 Oxygen Delivery Method Room Air Intake Visit Reasons: COPD Intake Note: pt is here for follow up and states she is feeling good, she is on Arnuity and no need for rescue too much. 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 Required: No Allergies levofloxacin [Levaquin] Allergy (Unknown, Verified 01/10/24 10:13) Unknown Sulfa (Sulfonamide Antibiotics) Allergy (Unknown, Verified 01/10/24 10:13) Unknown Medication List - Last Reconciled 01/10/24 by Toya Amezcua MD albuterol sulfate 0.63 mg (3 mL) inhalation QID PRN albuterol sulfate 90 mcg/actuation 2 puffs PO Q6H PRN 30 days aspirin 81 mg PO DAILY atorvastatin 80 mg PO BEDTIME clopidogrel 75 mg PO DAILY lorazepam 1 mg PO BID PRN 90 days nebulizers (AeroEclipse II Nebulizer) As directed prednisone 5 mg PO Q OTHER DAY 90 days sertraline 100 mg PO DAILY Do you need a note to return to daycare/school/sports/work: No HPI COPD HPI Details Mita is 78 years old very pleasant female, being treated for bronchial asthma and also anxiety syndrome. On her current regimen she is staying very stable. She has no episodes of cough or wheezing, hardly has use the rescue inhaler. Arnuity-[address] Flov[address] and is working okay. She also continues to take prednisone 5 mg on alternate days. She still needs to use lorazepam 1 mg at bedtime , otherwise she just can not relax her sleep. [facility] Medical History HTN (hypertension) HLD (hyperlipidemia) Anxiety COPD (chronic obstructive pulmonary disease) Social History Alcohol intake: current Alcohol intake frequency: a few times a month Patient Tobacco Use Status: Former Tobacco user Years Smoked: 1979 service: No Current occupational status: retired Review of Systems Const All systems reviewed & are unremarkable except as noted in HPI and below Eyes Reports no additional complaints ENT Reports no additional complaints Card Denies chest pain, Reports irregular heart rhythm, Denies leg edema and Reports dyspnea on exertion (Mild) Resp Reports cough, Reports dyspnea on exertion (Mild) and Reports wheezing GI Reports other (Appetite somewhat poor) Reports no additional complaints Musc Reports no additional complaints Skin/Breast Reports system reviewed and no additional complaints, except as documented Neuro Reports no additional complaints Psych Reports anxiety Aller/Immun Reports wheezing Physical Exam Vital Signs: Last Vital Signs Pulse 61 01/10/24 10:08 BP 104/50 L 01/10/24 10:08 Pulse Ox 97 01/10/24 10:08 Oxygen Delivery Method Room Air 01/10/24 10:08 BMI result Body Mass Index 23.2 Const General: healthy appearing (Anxious, and somewhat depressed.), comfortable, no acute distress, alert and awake Orientation/consciousness: patient oriented x3 HEENT Head: Yes normal to inspection General nose exam: No nasal polyps present and No nasal discharge present Face and sinus: Yes sinuses nontender Mouth: oropharynx normal Throat: Yes posterior oropharynx normal Eyes General: appearance normal, both eyes and all related structures Neck Neck: Yes normal visual inspection, Yes no lymphadenopathy, Yes trachea midline and Yes no JVD Thyroid: Thyroid normal Chest Chest palpation & inspection: normal inspection of the chest, normal palpation of entire chest wall and no tenderness Resp Other: Percussion note resonant, breath sounds are distant on both sides with prolonged expiratory phase. No wheezes crepitations or rhonchi are heard today. Cardio Palpation: normal PMI Rate: regular rate Rhythm: regular rhythm Heart sounds: no gallops and no murmurs Peripheral pulses: Peripheral pulses 2+ throughout GI Palpation (GI): Soft to palpation, nontender, No hepatosplenomegaly present and no masses Auscultation: normal bowel sounds Back/Spine/Pelvis Thoracic/Lumbar Spine: thoracic and lumbar spine normal to inspection Skin General skin exam: no rashes or lesions noted Neuro General: patient oriented x3 and no focal motor deficits Cranial nerves: Yes CN's II-XII intact bilaterally Extrem General: Yes normal to inspection, Yes no clubbing, cyanosis or edema and Yes no calf tenderness Psych Appearance: grossly normal, well kempt and other (Not very anxious at this time ) Speech and movement: Normal speech and movement present Assessment & Plan Assessment & Plan (1) COPD (chronic obstructive pulmonary disease): Comment: ASTHMA/COPD ,MILD TO MODERTAE ,FAIRLY WELL CONTROLLED AT THIS TIME. Code(s): J44.9 - Chronic obstructive pulmonary disease, unspecified Plan: Continue Arnuity-201 inhalation daily. Albuterol HFA 1 or 2 puffs Q 4-6 hours p.r.n.. Prednisone 5 mg on alternate days. (2) Anxiety: Comment: SUFFERS FROM CHRONIC ANXIETY DISORDER. FREQUENT ATTACKS OF ANXIETY/PANIC AND SHORTNESS OF BREATH. ALSO FINDS DIFFICULT TO SLEEP WITHOUT LORAZEPAM. Code(s): F41.9 - Anxiety disorder, unspecified Plan: Lorazepam 1 mg b.i.d. p.r.n.. Coding Level of Care Code Est Pt Level 3 (12548) Diagnoses COPD (chronic obstructive pulmonary disease) J44.9 Anxiety F41.9
== END 2024-01-10 10:24 | disposition home or self-care (01) ==
PROVIDERS: PCP Internal Medicine Medical Oncology; Visit Provider Internal Medicine
DX: J44.9 Chronic obstructive pulmonary disease, unspecified (principal); F41.9 Anxiety disorder, unspecified
CPT/HCPCS: 99213

== ENCOUNTER → 2024-01-10 10:04 | Outpatient (BNVA) | payer MEDICARE, SELFPAY | PROVIDERS: PCP Internal Medicine Medical Oncology; Visit Provider Internal Medicine | DX: J44.9 Chronic obstructive pulmonary disease, unspecified (principal); F41.9 Anxiety disorder, unspecified | CPT/HCPCS: 99212 ==

== ENCOUNTER 2024-05-14 09:54 | Outpatient (AMB) | payer MEDICARE, SELFPAY ==
--- NOTE | 2024-05-14 10:07 | MHC.OFFVIS ---
Vital Signs 05/14/24 10:08 Height 5 ft Weight 127 lb 13.89 oz BMI 25.0 BP 140/60 H Blood Pressure Location Lt brachial Position Sitting Pulse 55 Pulse Source Pulse Oximeter Pulse Oximetry (%) 96 Oxygen Delivery Method Room Air Intake Visit Reasons: COPD Intake Note: pt is here for follow up and states she is using Arnuity and seems to be working well. 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 Allergies levofloxacin [Levaquin] Allergy (Unknown, Verified 05/14/24 10:34) Unknown Sulfa (Sulfonamide Antibiotics) Allergy (Unknown, Verified 05/14/24 10:34) Unknown Medication List - Last Reconciled 05/14/24 by Toya Amezcua MD albuterol sulfate 0.63 mg (3 mL) inhalation QID PRN albuterol sulfate 90 mcg/actuation 2 puffs PO Q6H PRN 30 days aspirin 81 mg PO DAILY atorvastatin 80 mg PO BEDTIME clopidogrel 75 mg PO DAILY lorazepam 1 mg PO BID PRN 90 days metoprolol succinate ER 25 mg PO DAILY nebulizers (AeroEclipse II Nebulizer) As directed prednisone 5 mg PO Q OTHER DAY 90 days sertraline 100 mg PO DAILY Do you need a note to return to daycare/school/sports/work: No HPI HPI COPD: Details: OUSMANE IS 79 YEARS OLD FEMALE, WITH LONGSTANDING HISTORY OF BRONCHIAL ASTHMA, AND ANXIETY NEUROSIS, IN ADDITION TO HER OTHER MEDICAL PROBLEMS. BRONCHIAL ASTHMA HAS BEEN WELL CONTROLLED WITH THE USE OF INHALED STEROIDS, ARNUITY . SHE ALSO TAKES PREDNISONE 5 MG ON ALTERNATE DAYS FOR RATHER LONG-TIME. HER MAIN PROBLEM WAS WAKING UP AT NIGHT TO WITH SHORTNESS OF BREATH WHICH SHE THOUGHT WAS DUE TO UNCONTROLLED ASTHMA. HOWEVER THIS WAS FELT TO BE DUE TO ANXIETY AND SHE HAS BEEN TREATED WITH LORAZEPAM 1 MG AT BEDTIME. SHE IS ALSO ON SERTRALINE 100 MG DAILY. SHE HAS THE NEBULIZER AT HOME AND USES HAVE STRENGTH ALBUTEROL SOLUTION Q 6 HOURS ONLY NEEDED. [facility] Medical History HTN (hypertension) HLD (hyperlipidemia) Anxiety COPD (chronic obstructive pulmonary disease) Social History Alcohol intake: current Alcohol intake frequency: a few times a month Patient Tobacco Use Status: Former Tobacco user Years Smoked: 1979 service: No Current occupational status: retired Review of Systems Const All systems reviewed & are unremarkable except as noted in HPI and below Eyes Reports no additional complaints ENT Reports no additional complaints Card Denies chest pain, Reports irregular heart rhythm, Denies leg edema and Reports dyspnea on exertion (Mild) Resp Reports cough, Reports dyspnea on exertion (Mild) and Reports wheezing GI Reports other (Appetite somewhat poor) Reports no additional complaints Musc Reports no additional complaints Skin/Breast Reports system reviewed and no additional complaints, except as documented Neuro Reports no additional complaints Psych Reports anxiety Aller/Immun Reports wheezing Physical Exam Vital Signs: Last Vital Signs Pulse 55 05/14/24 10:08 BP 140/60 H 05/14/24 10:08 Pulse Ox 96 05/14/24 10:08 Oxygen Delivery Method Room Air 05/14/24 10:08 BMI result Body Mass Index 25.0 Const General: healthy appearing (Anxious, and somewhat depressed.), comfortable, no acute distress, alert and awake Orientation/consciousness: patient oriented x3 HEENT Head: Yes normal to inspection General nose exam: No nasal polyps present and No nasal discharge present Face and sinus: Yes sinuses nontender Mouth: oropharynx normal Throat: Yes posterior oropharynx normal Eyes General: appearance normal, both eyes and all related structures Neck Neck: Yes normal visual inspection, Yes no lymphadenopathy, Yes trachea midline and Yes no JVD Thyroid: Thyroid normal Chest Chest palpation & inspection: normal inspection of the chest, normal palpation of entire chest wall and no tenderness Resp Other: Percussion note resonant, breath sounds are distant on both sides with prolonged expiratory phase. No wheezes crepitations or rhonchi are heard today. Cardio Palpation: normal PMI Rate: regular rate Rhythm: regular rhythm Heart sounds: no gallops and no murmurs Peripheral pulses: Peripheral pulses 2+ throughout GI Palpation (GI): Soft to palpation, nontender, No hepatosplenomegaly present and no masses Auscultation: normal bowel sounds Back/Spine/Pelvis Thoracic/Lumbar Spine: thoracic and lumbar spine normal to inspection Skin General skin exam: no rashes or lesions noted Neuro General: patient oriented x3 and no focal motor deficits Cranial nerves: Yes CN's II-XII intact bilaterally Extrem General: Yes normal to inspection, Yes no clubbing, cyanosis or edema and Yes no calf tenderness Psych Appearance: grossly normal, well kempt and other (Not very anxious at this time ) Speech and movement: Normal speech and movement present Assessment & Plan Assessment & Plan (1) COPD (chronic obstructive pulmonary disease): Comment: ASTHMA/COPD ,MILD TO MODERTAE ,FAIRLY WELL CONTROLLED AT THIS TIME. Code(s): J44.9 - Chronic obstructive pulmonary disease, unspecified Category: Medical Plan: CONTINUE TO USE ARNUITY 200 MCG, 1 INHALATION DAILY. USE ALBUTEROL IN THE NEBULIZER Q 6 HOURS P.R.N. WHEN OUTDOORS MAY USE ALBUTEROL HFA 2 PUFFS Q 4-6 HOURS P.R.N.. DISCUSSED ABOUT PREDNISONE AND I ADVISED HER TO CUT IT DOWN MUCH POSSIBLE. AT THIS POINT SHE WILL USE 5 MG 2 DAYS A WEEK FOR 1 MONTH AND THEN STOP COMPLETELY. (2) Anxiety: Comment: SUFFERS FROM CHRONIC ANXIETY DISORDER. FREQUENT ATTACKS OF ANXIETY/PANIC AND SHORTNESS OF BREATH. ARE BETTER CONTROLLED SINCE SHE IS ON ARNUITY. STILL HAS ANXIETY EPISODES IF SHE DOES NOT USE LORAZEPAM AT NIGHT. Code(s): F41.9 - Anxiety disorder, unspecified Category: Medical Plan: LORAZEPAM 1 MG 1 TABLET AT BEDTIME, AND ONLY. P.R.N. DURING THE DAY Coding Level of Care Code Est Pt Level 3 (73267) Diagnoses COPD (chronic obstructive pulmonary disease) J44.9 Anxiety F41.9
[2024-05-14 10:08] VITALS: BP 140/60; PULSE 55; O2SAT 96; BMI 25.0
== END 2024-05-14 10:35 | disposition home or self-care (01) ==
PROVIDERS: PCP Internal Medicine Medical Oncology; Visit Provider Internal Medicine
DX: J44.9 Chronic obstructive pulmonary disease, unspecified (principal); F41.9 Anxiety disorder, unspecified
CPT/HCPCS: 99213

== ENCOUNTER → 2024-05-14 09:54 | Outpatient (BNVA) | payer MEDICARE, SELFPAY | PROVIDERS: PCP Internal Medicine Medical Oncology; Visit Provider Internal Medicine | DX: J44.9 Chronic obstructive pulmonary disease, unspecified (principal); F41.9 Anxiety disorder, unspecified | CPT/HCPCS: 99212 ==

== ENCOUNTER 2024-11-06 10:26 | Outpatient (AMB) | payer MEDICARE, SELFPAY ==
[2024-11-06 10:32] VITALS: BP 110/62; PULSE 66; O2SAT 96; BMI 22.8
--- NOTE | 2024-11-06 10:32 | A.OFFVIS_ITS ---
Vital Signs 11/06/24 10:32 Height 5 ft Weight 116 lb 13.52 oz BMI 22.8 BP 110/62 Blood Pressure Location Lt brachial Position Sitting Pulse 66 Pulse Source Pulse Oximeter Pulse Oximetry (%) 96 Oxygen Delivery Method Room Air Intake Visit Reasons: COPD Allergies levofloxacin [Levaquin] Allergy (Unknown, Verified 11/06/24 10:53) Unknown Sulfa (Sulfonamide Antibiotics) Allergy (Unknown, Verified 11/06/24 10:53) Unknown Medication List - Last Reconciled 11/06/24 by Toya Amezcua MD albuterol sulfate 0.63 mg (3 mL) inhalation QID PRN albuterol sulfate 90 mcg/actuation 2 puffs PO Q6H PRN 30 days aspirin 81 mg PO DAILY atorvastatin 80 mg PO BEDTIME clopidogrel 75 mg PO DAILY fluticasone furoate 200 mcg/actuation (Arnuity Ellipta) 1 inh inhalation DAILY lisinopril 10 mg PO DAILY lorazepam 0.5 mg PO TID PRN metoprolol succinate ER 25 mg PO DAILY nebulizers (AeroEclipse II Nebulizer) As directed sertraline 100 mg PO DAILY Do you need a note to return to daycare/school/sports/work: No HPI HPI COPD: Details: OUSMANE IS 79 YEARS OLD VERY PLEASANT FEMALE WITH CHRONIC ALLERGIC RHINITIS AND BRONCHIAL ASTHMA. SHE ALSO HAS CHRONIC ANXIETY SYNDROME. SHE HAS BEEN DOING WELL BUT FOR A WHILE THE INSURANCE DID NOT COVER HER USUAL FLOVENT. SHE ENDED UP WHO IN THE HOSPITAL EMERGENCY ROOM A FEW TIMES WITH WHEEZING AND COUGH. FINALLY SHE IS GETTING FLUTICASONE FEW RATE IN THE FORM OF ARNUITY ELLIPTA USING 1 INHALATION DAILY. AND HER ASTHMA IS REMAINING WELL CONTROLLED. SHE STILL GETS NASAL CONGESTION WITH POSTNASAL DRIP QUITE FREQUENTLY. ,HER SON IS THE COKE AT HOME , FEEDS HER WELL BUT SHE HAS NOT GAINED ANY WEIGHT RATHER HAS LOST A FEW LB. SHE STILL NEEDS LORAZEPAM 1 MG AT BEDTIME TO SLEEP. [facility] Medical History (Updated 11/06/24 @ 11:08 by Toya Amezcua MD) Allergic rhinitis HTN (hypertension) HLD (hyperlipidemia) Anxiety COPD (chronic obstructive pulmonary disease) Social History Alcohol intake: current Alcohol intake frequency: a few times a month Patient Tobacco Use Status: Former Tobacco user Years Smoked: 1979 service: No Current occupational status: retired Review of Systems Const All systems reviewed & are unremarkable except as noted in HPI and below Eyes Reports no additional complaints ENT Reports no additional complaints Card Denies chest pain, Reports irregular heart rhythm, Denies leg edema and Reports dyspnea on exertion (Mild) Resp Reports cough, Reports dyspnea on exertion (Mild) and Reports wheezing GI Reports other (Appetite somewhat poor) Reports no additional complaints Musc Reports no additional complaints Skin/Breast Reports system reviewed and no additional complaints, except as documented Neuro Reports no additional complaints Psych Reports anxiety Aller/Immun Reports wheezing Physical Exam Vital Signs: Last Vital Signs Pulse 66 11/06/24 10:32 BP 110/62 11/06/24 10:32 Pulse Ox 96 11/06/24 10:32 Oxygen Delivery Method Room Air 11/06/24 10:32 BMI result Body Mass Index 22.8 Const General: healthy appearing (Anxious, and somewhat depressed.), comfortable, no acute distress, alert and awake Orientation/consciousness: patient oriented x3 HEENT Head: Yes normal to inspection General nose exam: No nasal polyps present and No nasal discharge present Face and sinus: Yes sinuses nontender Mouth: oropharynx normal Throat: Yes posterior oropharynx normal Eyes General: appearance normal, both eyes and all related structures Neck Neck: Yes normal visual inspection, Yes no lymphadenopathy, Yes trachea midline and Yes no JVD Thyroid: Thyroid normal Chest Chest palpation & inspection: normal inspection of the chest, normal palpation of entire chest wall and no tenderness Resp Other: Percussion note resonant, breath sounds are distant on both sides with prolonged expiratory phase. No wheezes crepitations or rhonchi are heard today. Cardio Palpation: normal PMI Rate: regular rate Rhythm: regular rhythm Heart sounds: no gallops and no murmurs Peripheral pulses: Peripheral pulses 2+ throughout GI Palpation (GI): Soft to palpation, nontender, No hepatosplenomegaly present and no masses Auscultation: normal bowel sounds Back/Spine/Pelvis Thoracic/Lumbar Spine: thoracic and lumbar spine normal to inspection Skin General skin exam: no rashes or lesions noted Neuro General: patient oriented x3 and no focal motor deficits Cranial nerves: Yes CN's II-XII intact bilaterally Extrem General: Yes normal to inspection, Yes no clubbing, cyanosis or edema and Yes no calf tenderness Psych Appearance: grossly normal, well kempt and other (Not very anxious at this time ) Speech and movement: Normal speech and movement present Assessment & Plan Assessment & Plan (1) Allergic rhinitis: Comment: CHRONIC NONSPECIFIC ALLERGIC RHINITIS/POSSIBLE VASOMOTOR RHINITIS, MILD TO MODERATE DEGREE OF SYMPTOMS BUT MOSTLY WELL CONTROLLED. Code(s): J30.9 - Allergic rhinitis, unspecified Category: Medical Plan: OK TO USE OTC ANTIHISTAMINICS SUCH LORATADINE 10 MG ONCE A DAY P.R.N. (2) COPD (chronic obstructive pulmonary disease): Comment: ASTHMA/COPD ,MILD TO MODERTAE ,FAIRLY WELL CONTROLLED AT THIS TIME. SHE DOES NEED TO USE CORTICOSTEROID INHALER FOR CONTROLLING ASTHMA SYMPTOMS. Code(s): J44.9 - Chronic obstructive pulmonary disease, unspecified Category: Medical Plan: CONTINUE ARNUITY ELLIPTA 200 Mcg PER ACTUATION ONCE A DAY ALBUTEROL HFA 2 PUFFS Q 6 HOURS P.R.N.. OR ALBUTEROL SOLUTION 0.63 MG PER ML 3 MALE Q 4-6 HOURS P.R.N. (3) Anxiety: Comment: SUFFERS FROM CHRONIC ANXIETY DISORDER. FREQUENT ATTACKS OF ANXIETY/PANIC AND SHORTNESS OF BREATH. ARE BETTER CONTROLLED SINCE SHE IS ON ARNUITY. STILL HAS ANXIETY EPISODES IF SHE DOES NOT USE LORAZEPAM AT NIGHT. Code(s): F41.9 - Anxiety disorder, unspecified Category: Medical Plan: SHE CONTINUES TO HAVE ANXIETY EPISODES ESPECIALLY AT NIGHTTIME AND CAN NOT SLEEP WITHOUT USING LORAZEPAM. SHE HAS USE LORAZEPAM FOR LONG TIME WITHOUT HAVING ANY SIGNIFICANT SIDE EFFECTS. Plan CONTINUE LORAZEPAM 1 MG AT BEDTIME AND 0.5 MG B.I.D. P.R.N. DURING THE DAYTIME. Medications: Changed From lorazepam 1 mg PO BID PRN 180 tabs 1RF anxiety/COPD 90 days To lorazepam 0.5 mg PO TID PRN Coding Level of Care Code Est Pt Level 3 (42080) Diagnoses Allergic rhinitis J30.9 COPD (chronic obstructive pulmonary disease) J44.9 Anxiety F41.9
--- OUTSIDE RECORDS SUMMARY | 2024-11-06 11:22 | XMS_ITS ---
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 Name Role Phone Dara Grissom Primary Care Provider [phone] Allergies Allergen (clinical drug ingredient) Drug/Non Drug Allergy documented on EMR Reaction Allergy Type Onset Date Status sulfacetamide Sulfacetamide Unknown Drug Allergy Active Levaquin Unknown Drug Allergy Active shrimp allergenic extract Shrimp (Diagnostic) Asthma attack Drug Allergy Active REASON FOR VISIT Asthma, Hypertension, Hyperlipidemia, Edentulous, COPD, Pulmonary nodules Medications Medication SIG (Take, Route, Frequency, Duration) Notes Start Date End Date Status Albuterol Sulfate 0.63 MG/3ML INHALE 3ML VIA NEB 4 TIMES A DAY NEEDED WHEEZING Inhalation Active Clopidogrel Bisulfate 75 MG 1 tablet Ora lly Once a day Active Serevent Diskus 50 MCG/ACT 1 puff Inhala tion Twice a day 12/15/2023 Active Mometasone Furoate 200 MCG/ACT 2 puffs Inhalation Twice a day 12/15/2023 Active LORazepam 0.5 MG 1 tablet at bedtime as needed Orally Once a day Active Sertraline HCl 100 MG 1 tablet Orally On ce a day Active Lisinopril 10 MG 1 tablet Orally Once a day Active Albuterol Sulfate HFA 108 (90 Base) MCG/ACT 2 puffs Inhalation Once a day Active Metoprolol Succinate ER 25 MG 1 tablet Orally Once a day Active predniSONE 20 MG TAKE 1 TABLET BY MOLLY TH WITH FOOD OR MILK EVERY DAY Active Atorvastatin Calcium 80 MG 1 tablet Oral ly Once a day Active Aspirin Adult Low Dose 81 MG 1 tablet Orally Once a day Active Arnuity Ellipta 200 MCG/ACT 1 puff Inhal ation Once a day 12/23/2023 Active Social History Tobacco Use: Social History Observation Description Date Details (start date - stop date) Former Smoker NA - NA Sex Assigned At : Social History Observation Description Sex Assigned At Female Tobacco Use/Smoking Question Answer Notes Patient is a former smoker How long has it been since you last smoked? > 10 years Additional Findings: Tobacco Non-User Ex-cigaret te smoker Vital Signs Temperature 98.1 degrees Fahrenheit 08/20/20 24 Blood pressure systolic 132 mm Hg 08/20/20 24 Blood pressure diastolic 83 mm Hg 024 Heart Rate 78 /min 08/20/2024 Height 61 in 08/20/2024 Weight 122 lbs 08/20/2024 BMI 23.05 kg/m2 08/20/2024 Encounters Encounter Location Date Provider Diagnosis Dara Grissom III, MD [address] [place] [address] [place] [id number] 08/20/2024 Dara Grissom Hyperlipidemia E78.5 ; Chronic obstructive pulmonary disease, unspecified J44.9 ; Allergic rhinitis, unspecified allergic rhinitis type J30.9 ; Essential hypertension I10 ; Former smoker Z87.891 ; Edentulous K00.0 ; Other asthma J45.998 and Solid nodule of lung 6 mm to 8 mm in diameter R91.1 Assessments Encounter Date Diagnosis (ICD Code) Assessment Notes Treat ment Notes Treatment Clinical Notes 08/20/2024 Hyperlipidemia (ICD-10 - E78.5) The recent fasting lipid profile shows excellent control of her Relafen values. No changes in her regimen were made today. 08/20/2024 Chronic obstructive pulmonary disease, unspecified (ICD-10 - J44.9) She was comfortable breathing room air today and there was no wheezing physical examination. 08/20/2024 Allergic rhinitis, unspecified allergic rhinitis type (ICD-10 - J30.9) She experienced moderate symptoms during pollen season, but she is not experiencing allergies at this time. No change in her regimen as necessary. 08/20/2024 Essential hypertension (ICD-10 - I10) Her bloood pressure today is 132/83. No change in her regimen was necessary. 08/20/2024 Former smoker (ICD-1 0 - Z87.891) She is highly motivated not to smoke anymore. She has a plan for prevention of relapse in times of stress. 08/20/2024 Edentulous (ICD-10 - K00.0) She has dentures and a fit well. No oral lesions were seen today. 08/20/2024 Other asthma (ICD-10 - J45.998) Her lungs were clear today. She has had no attacks of asthma lately. We discussed how to cope with pollen season. Her inhalers are up-to-date. 08/20/2024 Solid nodule of lung 6 mm to 8 mm in diameter (ICD-10 - R91.1) She is a former smoker who has been found to have an 8 mm pulmonary nodule. She is due to have a repeat CT scan of the chest to follow that lesion to see if it might be a primary lung cancer. This will be ordered and scheduled that her next visit. Plan Of Treatment Medication Medication Name Sig Start Date Stop Date Notes Albuterol Sulfate 0.63 MG/3ML INHALE 3ML VIA NEB 4 TIMES A DAY NEEDED WHEEZING Inhalation Clopidogrel Bisulfate 75 MG 1 tablet Orally Once a day Serevent Diskus 50 MCG/ACT 1 puff Inhala tion Twice a day 12/15/2023 Mometasone Furoate 200 MCG/ACT 2 puffs I nhalation Twice a day 12/15/2023 LORazepam 0.5 MG 1 tablet at bedtime as needed Orally Once a day Sertraline HCl 100 MG 1 tablet Orally Once a day Lisinopril 10 MG 1 tablet Orally Once a day Albuterol Sulfate HFA 108 (9 0 Base) MCG/ACT 2 puffs Inhalation Once a day Metoprolol Succinate ER 25 MG 1 tablet Orally Once a day predniSONE 20 MG TAKE 1 TABLET BY MOLLY WITH FOOD OR MILK EVERY DAY Atorvastatin Calcium 80 MG 1 tablet Orally Once a day Aspirin Adult Low Dose 81 MG 1 tablet Orally Once a day Arnuity Ellipta 200 MCG/ACT 1 puff Inhalation Once a day 0 12/23/2023 Pending Test Test Name Order Date PROFILE, FASTING (COMPREHENSIVE METABOLI C) 08/20/2024 CBC WITH AUTO DIFF 08/20/2024 Lipid Panel 08/20/2024 Next Appt Details Follow Up: 4 Months, Reason: OV Provider Name:Dara Grissom, 11/26/2024 09:30:00 AM, [address] [place] [address] [address], [address], [place], [id number], Provider Name:Dara Grissom, 01/24/2025 09:15:00 AM, [address] [place] [address] [place], [address], Progress Notes * Mita MEIERDOB:1945 ( 79 yo F)Acc No.[id number]:08/20/2024 Progress Notes Patient:?Mita MEIER Provider:?Dara Grissom MD :1945???Age:79 Y???Sex:Female D ate:08/20/2024 Address:[address] [place] [id number] Subjective: * Chief Complaints: * ???AsthmaHypertensionHyperli pidemiaEdentulousCOPDPulmonary nodules * HPI: ???COVID-19 Screening:?Questions?Have you experienced fever, chills, cough, sore throat, shortness of breath, difficulty breathing, muscle aches, loss of taste or smell??No ?Have you been exposed to the virus within the last 10 days??No ?Have you travelled internationally in the last 10 days??No ?Have you been exposed to COVID-19 in the past??Yes ???:?Mita, an 79-year-old female, has been experiencing memory issues, particularly with forgetting words and misplacing items. She has also reported some difficulty with driving, particularly with maintaining a safe distance from the car in front of her. However, she is still able to manage her daily activities, including cooking, without any significant problems. She has not reported any issues with her medications. Her sleep is good and she has not reported any issues with her heart. Blood Sugar Level is 95.Comprehensive blood work is available and was reviewed with her and her family.? The well values are present in patient document. * ROS:?General/Constitutional:?pain?only normal aches and pains.?Chills?denies.?Fatigue?admits.?Fever?denies.?ENT:?Decreased hearing?in both ears.?Respiratory:?Cough?denies.?Cardiovascular:?Chest pain with exertion?denies.?Dyspnea on exertion?with moderate activity.?Shortness of breath?that is moderate.?Gastrointestinal:?Constipation?occasional.?Decreased appetite?denies.?Diarrhea?denies.?Heartburn?denies.?Nausea?denies.?Rectal bleeding?denies.?Vomiting?denies.?Hematology:?bruising?denies.?petechiae?denies.?Swollen glands?none have been noted.?Genitourinary:?Frequent urination?at night.?Musculoskeletal:?Muscle aches?denies.?Painful joints?denies.?Sciatica?denies.?Weakness?denies.?Skin:?Itching?denies.?Rash?denies.?Skin lesion(s)?denies.?Neurologic:?Difficulty speaking?denies.?Dizziness?denies.?Headache?denies.?Low back pain?denies.?Psychiatric:?Depressed mood?denies.? * Medical History:? * Surgical History:?No history * Hospitalization/Major Diagno stic Procedure:?Non-ST elevated myocardial infraction 07/2022No history * Family History:?Father: dece ased 79 yrs, emphysema, Parkinsons.?Mother: 78 yrs, alzheimer.?Paternal Grand Mother: , cancer.?Spouse: alive 72 yrs.?1 brother(s) . 1 son(s) , 1 daughter(s) - healthy. .? A brother at 62 of cardiomyopathy. * Social History:?Tobacco Use:?Tobacco Use/Smoking?Patient is a?former smoker ?How long has it been since you last smoked??> 10 years ?Additional Findings: Tobacco Non-User?Ex-cigarette smoker ???She lives in [place] and is . She enjoys sewing, knitting and crafts. She was born in [place]. * Medications:?TakingpredniSON E 20 MG Tablet TAKE 1 TABLET BY MOUTH WITH FOOD OR MILK EVERY DAY Atorvastatin Calcium 80 MG Tablet 1 tablet Orally Once a day Arnuity Ellipta 200 MCG/ACT Aerosol Powder Breath Activated 1 puff Inhalation Once a day Aspirin Adult Low Dose 81 MG Tablet Delayed Release 1 tablet Orally Once a day Lisinopril 10 MG Tablet 1 tablet Orally Once a day Albuterol Sulfate HFA 108 (90 Base) MCG/ACT Aerosol Solution 2 puffs Inhalation Once a day LORazepam 0.5 MG Tablet 1 tablet at bedtime as needed Orally Once a day Sertraline HCl 100 MG Tablet 1 tablet Orally Once a day Metoprolol Succinate ER 25 MG Tablet Extended Release 24 Hour 1 tablet Orally Once a day Clopidogrel Bisulfate 75 MG Tablet 1 tablet Orally Once a day Albuterol Sulfate 0.63 MG/3ML Nebulization Solution INHALE 3ML VIA NEB 4 TIMES A DAY NEEDED WHEEZING Inhalation Serevent Diskus 50 MCG/ACT Aerosol Powder Breath Activated 1 puff Inhalation Twice a day Mometasone Furoate 200 MCG/ACT Aerosol 2 puffs Inhalation Twice a day Taking predniSONE 20 MG Tablet TAKE 1 TABLET BY MOUTH WITH FOOD OR MILK EVERY DAY Taking Atorvastatin Calcium 80 MG Tablet 1 tablet Orally Once a day Taking Arnuity Ellipta 200 MCG/ACT Aerosol Powder Breath Activated 1 puff Inhalation Once a day Taking Aspirin Adult Low Dose 81 MG Tablet Delayed Release 1 tablet Orally Once a day Taking Lisinopril 10 MG Tablet 1 tablet Orally Once a day Taking Albuterol Sulfate HFA 108 (90 Base) MCG/ACT Aerosol Solution 2 puffs Inhalation Once a day Taking LORazepam 0.5 MG Tablet 1 tablet at bedtime as needed Orally Once a day Taking Sertraline HCl 100 MG Tablet 1 tablet Orally Once a day Taking Metoprolol Succinate ER 25 MG Tablet Extended Release 24 Hour 1 tablet Orally Once a day Taking Clopidogrel Bisulfate 75 MG Tablet 1 tablet Orally Once a day Taking Albuterol Sulfate 0.63 MG/3ML Nebulization Solution INHALE 3ML VIA NEB 4 TIMES A DAY NEEDED WHEEZING Inhalation Taking Serevent Diskus 50 MCG/ACT Aerosol Powder Breath Activated 1 puff Inhalation Twice a day Taking Mometasone Furoate 200 MCG/ACT Aerosol 2 puffs Inhalation Twice a day DiscontinuedArnuity Ellipta 200 MCG/ACT Aerosol Powder Breath Activated 2 puffs Inhalation twice a day Medication List reviewed and reconciled with the patientDiscontinued Arnuity Ellipta 200 MCG/ACT Aerosol Powder Breath Activated 2 puffs Inhalation twice a day Medication List reviewed and reconciled with the patient * Allergies:?LevaquinSulfaceta mideShrimp (Diagnostic): Asthma attack - Side Effectsno[Allergies Verified] Objective: * Vitals:?Ht: 61, Wt:122, BMI: 23.05, BP:132/83, HR:78, Temp:98.1, Wt-k.34. * Examination: ???General Examination: ?GENERAL APPEARANCE:?pleasant, well nourished, well developed, in no acute distress, calm and relaxed, elderly woman.?HEAD:?atraumatic, normocephalic.?EYES:?eomi, perrla, anicteric, conjugate.?EARS:?normal.?NOSE:?septum intact.?ORAL CAVITY:?normal, unremarkable.?NECK/THYROID:?no jugular venous distention, no carotid bruit, thyroid normal.?LYMPH NODES:?no enlarged lymph nodes,spleen normal.?SKIN:?no suspicious lesions, anicteric.?HEART:?no clicks, gallops, murmurs, or rubs, regular rhythm, S1, S2 normal, no s3, or vascular bruits.?LUNGS:?, no wheezes, rales, rhonchi, diminished breath sounds throughout, good air movement.?BREASTS:?Not examined.?ABDOMEN:?bowel sounds normal, no ascites, no organomegaly, no mass.?RECTAL EXAM:?not examined.?MUSCULOSKELETAL:?extremities unremarkable, no clubbing, cyanosis or edema.?PERIPHERAL PULSES:?normal.?NEUROLOGIC:?alert and oriented, cranial nerves 2-12 grossly intact, deep tendon reflexes 2+ symmetrical, motor strength normal upper and lower extremities, sensory exam intact.?PSYCH:?alert, oriented, Mild memory problems with words.? Assessment: * Assessment: 1.?Chronic obstructive pulmo nary disease, unspecified - J44.9 (Primary)???Notes :She was comfortable breathing room air today and there was no wheezing physical examination.???2.?Hyperlipidemia - E78.5???Notes :The recent fasting lipid profile shows excellent control of her Relafen values. No changes in her regimen were made today.???3.?Allergic rhinitis, unspecified allergic rhinitis type - J30.9???Notes :She experienced moderate symptoms during pollen season, but she is not experiencing allergies at this time. No change in her regimen as necessary.???4.?Essential hypertension - I10???Notes :Her bloood pressure today is 132/83. No change in her regimen was necessary.???5.?Former smoker - Z87.891???Notes :She is highly motivated not to smoke anymore. 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 No oral lesions were seen today.???7.?Other asthma - J45.998???Notes :Her lungs were clear today. She has had no attacks of asthma lately. We discussed how to cope with pollen season. Her inhalers are up-to-date.???8.?Solid nodule of lung 6 mm to 8 mm in diameter - R91.1???Notes :She is a former smoker who has been found to have an 8 mm pulmonary nodule. She is due to have a repeat CT scan of the chest to follow that lesion to see if it might be a primary lung cancer.??This will be ordered and scheduled that her next visit.??? Plan: * Treatment: 2.?Others? Continue predniSONE Tablet, 20 MG, TAKE 1 TABLET BY MOUTH WITH FOOD OR MILK EVERY DAY;?Continue Atorvastatin Calcium Tablet, 80 MG, 1 tablet, Orally, Once a day;?Continue Arnuity Ellipta Aerosol Powder Breath Activated, 200 MCG/ACT, 1 puff, Inhalation, Once a day.?? * Procedure Codes:? * Preventive Medicine:? ??Counseling:?Smoking/Tobacco Use?Patient counseled on the dangers of tobacco use and urged to quit.?08/20/2024 ??COPD Care Plan:?Patient Lifestyle Goals?Be able to be more active with friends and family, Reduce number of ED and hospitalizations, Relieve symptoms and improve quality of life.?Treatment Goals?Eat a nutritious diet and increase water consumption to 6-8 glasses a day, Exercise to help whole body, including lungs.?Barriers?no barriers.?Self-Managment Goals?Eat a healthy diet.? * Follow Up:?4 Months (Reason: OV) * Images: * Sign off status: Completed true * Provider:?Dara Grissom MD Date:?08/01 Generated for Wojciech cunha/Fahad/eTransmitting on:?11/06/2024 11:22 AM EST History and Physical Notes * HPI (History of Present Illness) Category Sub-Category Detail Notes COVID-19 Screening Questions Have you had any new onset fever, chills, cough, congestion, sore throat, shortness of breath, muscle aches?: No Have you been exposed to the virus withi n the last 10 days?: No Have you travelled internationally in e last 10 days?: No Have you been exposed to COVID-19 in the past?: Yes Examination Category Sub-Category Detail Notes General Examination GENERAL APPEARANCE: pleasant , well nourished, well developed, in no acute distress, calm and relaxed, elderly woman HEAD: atraumatic, normocep halic EYES: eomi, perrla, anicte phani, conjugate EARS: normal NOSE: septum intact NECK/THYROID: no jugular venous di stention, no carotid bruit, thyroid normal HEART: no clicks, gallops, murmurs, or rubs, regular rhythm, S1, S2 normal, no s3, or vascular bruits LUNGS: , no wheezes, rales, rhonchi, diminished breath sounds throughout, good air movement ABDOMEN: bowel sounds normal, no ascites, no organomegaly, no mass NEUROLOGIC: alert and oriented, cranial nerves 2-12 grossly intact, deep tendon reflexes 2+ symmetrical, motor strength normal upper and lower extremities, sensory exam intact SKIN: no suspicious lesion s, anicteric PERIPHERAL PULSES: normal BREASTS: Not examined MUSCULOSKELETAL: extremities unremark able, no clubbing, cyanosis or edema LYMPH NODES: no enlarged lymph no sana,spleen normal RECTAL EXAM: not examined PSYCH: alert, oriented, Mil d memory problems with words ORAL CAVITY: normal, unremarkable
--- OUTSIDE RECORDS SUMMARY | 2024-11-06 11:22 | XMS_ITS ---
Author Organization Dara Grissom III, MD Address [address] [address] Care Team Providers Care Financial Foundations Representative Name Role Phone Dara Grissom Primary Care Provider Allergies Allergen (clinical drug ingredient) Drug/Non Drug Allergy documented on EMR Reaction Allergy Type Onset Date Status sulfacetamide Sulfacetamide Unknown Drug Allergy Active Levaquin Unknown Drug Allergy Active shrimp allergenic extract Shrimp (Diagnostic) Asthma attack Drug Allergy Active REASON FOR VISIT Hypertension, hyperlipidemia, asthma Medications Medication SIG (Take, Route, Frequency, Duration) Notes Start Date End Date Status Lisinopril 10 MG 1 tablet Orally Once a day Active Albuterol Sulfate HFA 108 (90 Base) MCG/ACT 2 puffs Inhalation Once a day Active LORazepam 0.5 MG 1 tablet at bedtime as needed Orally Once a day Active Sertraline HCl 100 MG 1 tablet Orally On ce a day Active Aspirin Adult Low Dose 81 MG 1 tablet Orally Once a day Active predniSONE 20 MG TAKE 1 TABLET BY WITH FOOD OR MILK EVERY DAY Active Atorvastatin Calcium 80 MG 1 tablet Oral ly Once a day Active Arnuity Ellipta 200 MCG/ACT 1 puff Inhal ation Once a day 12/23/2023 Active Mometasone Furoate 200 MCG/ACT 2 puffs Inhalation Twice a day 12/15/2023 Active Arnuity Ellipta 200 MCG/ACT 2 puffs Inha lation twice a day Active Metoprolol Succinate ER 25 MG 1 tablet Orally Once a day Active Clopidogrel Bisulfate 75 MG 1 tablet Ora lly Once a day Active Albuterol Sulfate 0.63 MG/3ML INHALE 3ML VIA NEB 4 TIMES A DAY NEEDED WHEEZING Inhalation Active Serevent Diskus 50 MCG/ACT 1 puff Inhala tion Twice a day 12/15/2023 Active Social History Tobacco Use: Social History Observation Description Date Details (start date - stop date) Former Smoker NA - NA Sex Assigned At : Social History Observation Description Sex Assigned At Female Tobacco Use/Smoking Question Answer Notes Patient is a former smoker How long has it been since you last smoked? > 10 years Additional Findings: Tobacco Non-User Ex-cigaret te smoker Problems Problem Type SNOMED Code ICD Code Onset Dates Problem Status W/U Status Risk Notes Problem Chronic obstructive pulmonary disease (37265517) Chronic obstructive pulmonary disease, unspecified (J44.9) Active confirmed She was comfortable breathing room air today and there was no wheezing physical examination. Vital Signs Temperature 98.1 degrees Fahrenheit 04/19/20 24 Blood pressure systolic 146 mm Hg 04/19/20 24 Blood pressure diastolic 59 mm Hg 024 Heart Rate 51 /min 04/19/2024 Height 61 in 04/19/2024 Weight 125 lbs 04/19/2024 BMI 23.62 kg/m2 04/19/2024 Encounters Encounter Location Date Provider Diagnosis Dara Grissom III, MD [address] [place] [address] [place] [address] 04/19/2024 Dara Grissom Hyperlipidemia E78.5 ; Former smoker Z87.891 ; Other asthma J45.998 ; Essential hypertension I10 and Chronic obstructive pulmonary disease, unspecified J44.9 Assessments Encounter Date Diagnosis (ICD Code) Assessment Notes Treat ment Notes Treatment Clinical Notes 04/19/2024 Hyperlipidemia (ICD-10 - E78.5) The recent fasting lipid profile shows excellent control of her Relafen values. No changes in her regimen were made today. 04/19/2024 Former smoker (ICD-1 0 - Z87.891) She is highly motivated not to smoke anymore. She has a plan for prevention of relapse in times of stress. 04/19/2024 Other asthma (ICD-10 - J45.998) Her lungs were clear today. She has had no attacks of asthma lately. We discussed how to cope with pollen season. Her inhalers are up-to-date. 04/19/2024 Essential hypertension (ICD-10 - I10) Blood pressure today is 136/80. No change in her regimen was necessary. 04/19/2024 Chronic obstructive pulmonary disease, unspecified (ICD-10 - J44.9) She was comfortable breathing room air today and there was no wheezing physical examination. Plan Of Treatment Medication Medication Name Sig Start Date Stop Date Notes Lisinopril 10 MG 1 tablet Orally Once a day Albuterol Sulfate HFA 108 (9 0 Base) MCG/ACT 2 puffs Inhalation Once a day LORazepam 0.5 MG 1 tablet at bedtime as needed Orally Once a day Sertraline HCl 100 MG 1 tablet Orally Once a day Aspirin Adult Low Dose 81 MG 1 tablet Orally Once a day predniSONE 20 MG TAKE 1 TABLET BY WITH FOOD OR MILK EVERY DAY Atorvastatin Calcium 80 MG 1 tablet Orally Once a day Arnuity Ellipta 200 MCG/ACT 1 puff Inhalation Once a day 0 12/23/2023 Mometasone Furoate 200 MCG/ACT 2 puffs I nhalation Twice a day 12/15/2023 Arnuity Ellipta 200 MCG/ACT 2 puffs Inha lation twice a day Metoprolol Succinate ER 25 MG 1 tablet Orally Once a day Clopidogrel Bisulfate 75 MG 1 tablet Orally Once a day Albuterol Sulfate 0.63 MG/3ML INHALE 3ML VIA NEB 4 TIMES A DAY NEEDED WHEEZING Inhalation Serevent Diskus 50 MCG/ACT 1 puff Inhala tion Twice a day 12/15/2023 Pending Test Test Name Order Date PROFILE, FASTING (COMPREHENSIVE METABOLI C) 04/19/2024 CBC WITH AUTO DIFF 04/19/2024 Lipid Panel 04/19/2024 Next Appt Details Follow Up: 4 Months, Reason: OV Provider Name:Dara Grissom, 11/26/2024 09:30:00 AM, [address] [place] [address] [address], [place], [id number], Provider Name:Dara Grissom, 01/24/2025 09:15:00 AM, [address] [place] [address] [address], [place], [phone], Progress Notes * Mita MEIERDOB:1945 ( 78 yo F)Acc No.[id number]:04/19/2024 Progress Notes Patient:?Mita Meier Provider:?Dara Grissom MD :1945???Age:78 Y???Sex:Female D ate:04/19/2024 Address:[facility] [address], [id number] Subjective: * Chief Complaints: * ???HypertensionHyperlipidemi aAsthma * HPI: ???COVID-19 Screening:? she returns to the office for periodic evaluation and management of her medical issues. She is now 78 years of age. Continues to decline mammography or colonoscopy. She has no new complaints and feels well. Her vital signs were reviewed with her. Her examination showed no change. Blood work done April 16, 2024 showed white count 6.6 with 19.3% eosinophils hematocrit 40.1 platelets 242 glucose 88 BUN 15 creatinine 1.02 total cholesterol 196 triglycerides 121 HDL 69 LDL 103 ratio 3.8. ?Questions?Have you experienced fever, chills, cough, sore throat, shortness of breath, difficulty breathing, muscle aches, loss of taste or smell??No ?Have you been exposed to the virus within the last 10 days??No ?Have you travelled internationally in the last 10 days??No ?Have you been exposed to COVID-19 in the past??Yes * ROS:?General/Constitutional:?pain?only normal aches and pains.?Chills?denies.?Fatigue?admits.?Fever?denies.?ENT:?Decreased hearing?denies.?Respiratory:?Cough?denies.?Cardiovascular:?Chest pain with exertion?denies.?Dyspnea on exertion?denies.?Shortness of breath?denies.?Gastrointestinal:?Constipation?occasional.?Decreased appetite?denies.?Diarrhea?denies.?Heartburn?denies.?Nausea?denies.?Rectal bleeding?denies.?Vomiting?denies.?Hematology:?bruising?denies.?petechiae?denies.?Swollen glands?none have been noted.?Genitourinary:?Frequent urination?at night.?Musculoskeletal:?Muscle aches?denies.?Painful joints?denies.?Sciatica?denies.?Weakness?denies.?Skin:?Itching?denies.?Rash?denies.?Skin lesion(s)?denies.?Neurologic:?Difficulty speaking?denies.?Dizziness?denies.?Headache?denies.?Low back pain?denies.?Psychiatric:?Depressed mood?denies.? * Medical History:? * Surgical History:?[facility] Surgical History * Hospitalization/Major Diagno stic Procedure:?Non-ST elevated myocardial infraction 07/2022 * Family History:?Father: dece ased 79 yrs, emphysema, Parkinsons.?Mother: 78 yrs, alzheimer.?Paternal Grand Mother: , cancer.?Spouse: alive 72 yrs.?1 brother(s) . 1 son(s) , 1 daughter(s) - healthy. .? A brother at 62 of cardiomyopathy. * Social History:?Tobacco Use:?Tobacco Use/Smoking?Patient is a?former smoker ?How long has it been since you last smoked??> 10 years ?Additional Findings: Tobacco Non-User?Ex-cigarette smoker ???She lives in [place] and is . She enjoys sewing, knitting and crafts. She was born in [place]. * Medications:?TakingpredniSON E 20 MG Tablet TAKE 1 TABLET BY MOUTH WITH FOOD OR MILK EVERY DAY Atorvastatin Calcium 80 MG Tablet 1 tablet Orally Once a dayArnuity Ellipta 200 MCG/ACT Aerosol Powder Breath Activated 1 puff Inhalation Once a dayArnuity Ellipta 200 MCG/ACT Aerosol Powder Breath Activated 2 puffs Inhalation twice a dayAspirin Adult Low Dose 81 MG Tablet Delayed Release 1 tablet Orally Once a dayLisinopril 10 MG Tablet 1 tablet Orally Once a dayAlbuterol Sulfate HFA 108 (90 Base) MCG/ACT Aerosol Solution 2 puffs Inhalation Once a dayLORazepam 0.5 MG Tablet 1 tablet at bedtime as needed Orally Once a daySertraline HCl 100 MG Tablet 1 tablet Orally Once a dayMetoprolol Succinate ER 25 MG Tablet Extended Release 24 Hour 1 tablet Orally Once a dayClopidogrel Bisulfate 75 MG Tablet 1 tablet Orally Once a dayAlbuterol Sulfate 0.63 MG/3ML Nebulization Solution INHALE 3ML VIA NEB 4 TIMES A DAY NEEDED WHEEZING Inhalation Serevent Diskus 50 MCG/ACT Aerosol Powder Breath Activated 1 puff Inhalation Twice a dayMometasone Furoate 200 MCG/ACT Aerosol 2 puffs Inhalation Twice a dayMedication List reviewed and reconciled with the patientTaking predniSONE 20 MG Tablet TAKE 1 TABLET BY MOUTH WITH FOOD OR MILK EVERY DAY Taking Atorvastatin Calcium 80 MG Tablet 1 tablet Orally Once a dayTaking Arnuity Ellipta 200 MCG/ACT Aerosol Powder Breath Activated 1 puff Inhalation Once a dayTaking Arnuity Ellipta 200 MCG/ACT Aerosol Powder Breath Activated 2 puffs Inhalation twice a dayTaking Aspirin Adult Low Dose 81 MG Tablet Delayed Release 1 tablet Orally Once a dayTaking Lisinopril 10 MG Tablet 1 tablet Orally Once a dayTaking Albuterol Sulfate HFA 108 (90 Base) MCG/ACT Aerosol Solution 2 puffs Inhalation Once a dayTaking LORazepam 0.5 MG Tablet 1 tablet at bedtime as needed Orally Once a dayTaking Sertraline HCl 100 MG Tablet 1 tablet Orally Once a dayTaking Metoprolol Succinate ER 25 MG Tablet Extended Release 24 Hour 1 tablet Orally Once a dayTaking Clopidogrel Bisulfate 75 MG Tablet 1 tablet Orally Once a dayTaking Albuterol Sulfate 0.63 MG/3ML Nebulization Solution INHALE 3ML VIA NEB 4 TIMES A DAY NEEDED WHEEZING Inhalation Taking Serevent Diskus 50 MCG/ACT Aerosol Powder Breath Activated 1 puff Inhalation Twice a dayTaking Mometasone Furoate 200 MCG/ACT Aerosol 2 puffs Inhalation Twice a dayMedication List reviewed and reconciled with the patient * Allergies:?LevaquinSulfaceta mideShrimp (Diagnostic): Asthma attack - Side Effectsno[Allergies Verified] Objective: * Vitals:?Ht: 61, Wt:125, BMI: 23.62, BP:146/59, HR:51, Temp:98.1, Wt-k.7. * Examination: ???General Examination: ?GENERAL APPEARANCE:?pleasant, well nourished, well developed, in no acute distress, calm and relaxed , woman.?HEAD:?atraumatic, normocephalic.?EYES:?eomi, perrla, anicteric, conjugate.?EARS:?normal.?NOSE:?septum intact.?ORAL CAVITY:?normal, unremarkable.?NECK/THYROID:?no jugular venous distention, no carotid bruit, thyroid normal.?LYMPH NODES:?no enlarged lymph nodes,spleen normal.?SKIN:?no suspicious lesions, anicteric.?HEART:?no clicks, gallops, murmurs, or rubs, regular rhythm, S1, S2 normal, no s3, or vascular bruits.?LUNGS:?clear to auscultation .?BREASTS:?not examined.?ABDOMEN:?bowel sounds normal, no ascites, no organomegaly, no mass.?RECTAL EXAM:?not examined.?MUSCULOSKELETAL:?extremities unremarkable, no clubbing, cyanosis or edema.?PERIPHERAL PULSES:?normal.?NEUROLOGIC:?alert and oriented, cranial nerves 2-12 grossly intact, deep tendon reflexes 2+ symmetrical, motor strength normal upper and lower extremities, sensory exam intact.?PSYCH:?alert, oriented , anxious appearing.? Assessment: * Assessment: 1.?Hyperlipidemia - E78.5 (P rimary), The recent fasting lipid profile shows excellent control of her Relafen values. No changes in her regimen were made today.?2.?Former smoker - Z87.891, She is highly motivated not to smoke anymore. She has a plan for prevention of relapse in times of stress.?3.?Other asthma - J45.998, Her lungs were clear today. She has had no attacks of asthma lately. We discussed how to cope with pollen season. Her inhalers are up-to-date.?4.?Essential hypertension - I10, Blood pressure today is 136/80. No change in her regimen was necessary.?5.?Chronic obstructive pulmonary disease, unspecified - J44.9, She was comfortable breathing room air today and there was no wheezing physical examination.? Plan: * Treatment: 2.?Others? Continue predniSONE Tablet, 20 MG, TAKE 1 TABLET BY MOUTH WITH FOOD OR MILK EVERY DAY;?Continue Atorvastatin Calcium Tablet, 80 MG, 1 tablet, Orally, Once a day;?Continue Arnuity Ellipta Aerosol Powder Breath Activated, 200 MCG/ACT, 1 puff, Inhalation, Once a day;?Continue Arnuity Ellipta Aerosol Powder Breath Activated, 200 MCG/ACT, 2 puffs, Inhalation, twice a day.?? * Procedure Codes:? * Preventive Medicine:? ??COPD Care Plan:?Patient Lifestyle Goals?Be able to be more active with friends and family, Reduce number of ED and hospitalizations, Relieve symptoms and improve quality of life.?Treatment Goals?Eat a nutritious diet and increase water consumption to 6-8 glasses a day, Eat 4-5 small meals throughout the day.?Barriers?no barriers.?Self-Managment Goals?Get an air purifier for the rooms you are in the most, Eat a healthy diet, Exercise at least 3xs per week for at least 30 mins.? * Follow Up:?4 Months (Reason: OV) * Images: * Sign off status: Completed true * Provider:?Dara Grissom MD Date:?04/01 Generated for Wojciech cunha/Fahad/Aniaitting on:?11/06/2024 11:22 AM EST History and Physical Notes * HPI (History of Present Illness) Category Sub-Category Detail Notes COVID-19 Screening Questions Have you had any new onset fever, chills, cough, congestion, sore throat, shortness of breath, muscle aches?: No Have you been exposed to the virus withi n the last 10 days?: No Have you travelled internationally in smallpox hospital last 10 days?: No Have you been exposed to COVID-19 in the past?: Yes Examination Category Sub-Category Detail Notes General Examination GENERAL APPEARANCE: pleasant , well nourished, well developed, in no acute distress, calm and relaxed , woman HEAD: atraumatic, normocep halic EYES: eomi, perrla, anicte phani, conjugate EARS: normal NOSE: septum intact NECK/THYROID: no jugular venous di stention, no carotid bruit, thyroid normal HEART: no clicks, gallops, murmurs, or rubs, regular rhythm, S1, S2 normal, no s3, or vascular bruits LUNGS: clear to auscultatio n ABDOMEN: bowel sounds normal, no ascites, no organomegaly, no mass NEUROLOGIC: alert and oriented, cranial nerves 2-12 grossly intact, deep tendon reflexes 2+ symmetrical, motor strength normal upper and lower extremities, sensory exam intact SKIN: no suspicious lesion s, anicteric PERIPHERAL PULSES: normal BREASTS: not examined MUSCULOSKELETAL: extremities unremark able, no clubbing, cyanosis or edema LYMPH NODES: no enlarged lymph no sana,spleen normal RECTAL EXAM: not examined PSYCH: alert, oriented , an xious appearing ORAL CAVITY: normal, unremarkable
--- OUTSIDE RECORDS SUMMARY | 2024-11-06 11:23 | XMS_ITS | Patient Health Record ---
Author Organization Dara Grissom III, MD Address [address] [place] [address] Care Team Providers Care Certified Nursing Attendant Name Role Phone Dara Grissom Primary Care Provider Allergies Allergen (clinical drug ingredient) Drug/Non Drug Allergy documented on EMR Reaction Allergy Type Onset Date Status sulfacetamide Sulfacetamide Unknown Drug Allergy Active shrimp allergenic extract Shrimp (Diagnostic) Asthma attack Drug Allergy Active Levaquin Unknown Drug Allergy Active Results Component Value Reference Range Notes URINE DIP STICK Reviewed date:11/08/2023 04:02:11 PM Interpretation: Performing Lab: Notes/Report: SG 1.010 1.005 - 1.025 pH 6.5 5.0 - 9.0 SRIDHAR Negative Negative - NIT Negative Negative - PRO 15 Negative - Trace GLU Negative Negative - KET Negative Negative - UBG 0.2 0.1 - 1.8 COURTNEY Negative 0.2 - 1.3 BLD Negative Negative - Menstrating No Reason For Referral No Information Medications Medication SIG (Take, Route, Frequency, Duration) Notes Start Date End Date Status LORazepam 0.5 MG 1 tablet at bedtime as needed Orally Once a day Active Sertraline HCl 100 MG 1 tablet Orally On ce a day Active Lisinopril 10 MG 1 tablet Orally Once a day Active Albuterol Sulfate HFA 108 (90 Base) MCG/ACT 2 puffs Inhalation Once a day Active predniSONE 20 MG TAKE 1 TABLET BY WITH FOOD OR MILK EVERY DAY Active Albuterol Sulfate 0.63 MG/3ML INHALE 3ML VIA NEB 4 TIMES A DAY NEEDED WHEEZING Inhalation Active Atorvastatin Calcium 80 MG 1 tablet Oral ly Once a day Active Metoprolol Succinate ER 25 MG 1 tablet Orally Once a day Active Clopidogrel Bisulfate 75 MG 1 tablet Ora lly Once a day Active Aspirin Adult Low Dose 81 MG 1 tablet Orally Once a day Active Serevent Diskus 50 MCG/ACT 1 puff Inhala tion Twice a day 12/15/2023 Active Arnuity Ellipta 200 MCG/ACT 1 puff Inhal ation Once a day 12/23/2023 Active Mometasone Furoate 200 MCG/ACT 2 puffs Inhalation Twice a day 12/15/2023 Active Immunizations Vaccine Route Administration Date Status Comme nts Influenza Unknown 08/06/2014 Administered Influenza Unknown 07/20/2015 Administered Pneumococcal Unknown 07/20/2015 Administered Influenza Unknown 07/26/2016 Administered COVID PFIZER Unknown 05/25/2022 Administered COVID-19 Comirnaty Pfizer-BioNTech Unknown 07/27/2023 A dministered PCV20 Unknown 04/12/2023 Administered COVID Pfizer Bivalent Unknown 11/02/2022 Administered Influenza-iiv4 p-free high dose Unknown 07/27/2023 Admi nistered COVID-19 Comirnaty Pfizer-BioNTech Unknown 07/10/2024 A dministered Influenza, quad Unknown 06/19/2024 Administered Social History Tobacco Use: Social History Observation Description Date Details (start date - stop date) Former Smoker NA - NA Sex Assigned At : Social History Observation Description Sex Assigned At Female Tobacco Use/Smoking Question Answer Notes Patient is a former smoker How long has it been since you last smoked? > 10 years Additional Findings: Tobacco Non-User Ex-cigaret te smoker Alcohol Screen Question Answer Notes Did you have a drink containing alcohol in the p ast year? No Points 0 Interpretation Negative Problems Problem Type SNOMED Code ICD Code Onset Dates Problem Status W/U Status Risk Notes Problem 3506187 Former smoker (Z87.891) Active confirmed She is highly motivated not to smoke anymore. She has a plan for prevention of relapse in times of stress. Problem 62197020 Hyperlipidemia (E78.5) Active confirmed The recent fasting lipid profile shows excellent control of her Relafen values. No changes in her regimen were made today. Problem 05462181 Anxiety (F41.9) Active confirmed She is feeling much calmer lately and has returned to baseline. She is not feeling dyspneic. She has had no panic attacks. She will continue to take the sertraline. However, she continues to refuse cancer screening. Some parts of the physical examination. Problem Chronic obstructive pulmonary disease (10372330) Chronic obstructive pulmonary disease, unspecified (J44.9) Active confirmed She was comfortable breathing room air today and there was no wheezing physical examination. Problem Asthma (773374963) Other asthma (J45.998) Active confirmed Her lungs were clear today. She has had no attacks of asthma lately. We discussed how to cope with pollen season. Her inhalers are up-to-date. Problem 53368790 Essential hypertension (I10) Active confirmed Her bloood pressure today is 132/83. No change in her regimen was necessary. 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 No oral lesions were seen today. Problem 54739165 Allergic rhinitis, unspecified allergic rhinitis type (J30.9) Active confirmed She experienced moderate symptoms during pollen season, but she is not experiencing allergies at this time. No change in her regimen as necessary. 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 Problem 062070932 Age-related incipient cataract of both eyes (H25.093) Active confirmed She is going to have cataract surgery. I have taken her history carefully today. I have examined her thoroughly. There is no contraindication to cataract surgery. She is medically cleared for the procedure. Problem 932345882 Solid nodule of lung 6 mm to 8 mm in diameter (R91.1) Active confirmed She is a former smoker who has been found to have an 8 mm pulmonary nodule. She is due to have a repeat CT scan of the chest to follow that lesion to see if it might be a primary lung cancer. This will be ordered and scheduled that her next visit. Problem 682079558 Multiple pulmonary nodules (R91.8) Active confirmed A CT angiogr am of the chest in July 2022 was interpreted as showing an 8 mm right lower lobe nodule. A repeat CT scan of the chest was done November 28, 2023 in follow-up. This showed a 4 mm unchanged right middle lobe nodule, 2 mm unchanged right upper lobe nodule and a 4 mm nodule in the right lower lobe all 3 of which were unchanged. There was a new 4 mm left upper lobe nodule reported. Only one nodule was reported in 2021 on the CCT angiogram. These results were described in detail to the patient today as well as her familly members. I offered to do a PET CT scan but she declined not wishing to have any additional workup at this time. She has declined any other routine screening tests and diagnostic tests in the past as well. Vital Signs Heart Rate 78 /min 08/20/2024 Temperature 98.1 degrees Fahrenheit 08/20/2024 Blood pressure diastolic 83 mm Hg 08/20/2024 Height 61 in 08/20/2024 Blood pressure systolic 132 mm Hg 08/20/2024 Weight 122 lbs 08/20/2024 BMI 23.05 kg/m2 08/20/2024 Encounters Encounter Location Date Provider Diagnosis Dara Grissom III, MD [address] [place] [address] [place] [address] 11/08/2023 Dara Grissom Hyperlipidemia E78.5 ; Solid nodule of lung 6 mm to 8 mm in diameter R91.1 ; Essential hypertension I10 ; Allergic rhinitis, unspecified allergic rhinitis type J30.9 ; Former smoker Z87.891 ; Other asthma J45.998 and Noncompliance Z91.19 Dara Grissom III, MD [address] [place] [address] [place] [address] 12/01/2023 Dara Grissom Hyperlipidemia E78.5 ; Solid nodule of lung 6 mm to 8 mm in diameter R91.1 ; Allergic rhinitis, unspecified allergic rhinitis type J30.9 ; Essential hypertension I10 ; Former smoker Z87.891 ; Other asthma J45.998 ; Edentulous K00.0 ; Noncompliance Z91.19 and NSTEMI (non-ST elevated myocardial infarction) I21.4 Dara Grissom III, MD [address] [place] [address] [place] [address] 12/15/2023 Dara Grissom Hyperlipidemia E78.5 ; Allergic rhinitis, unspecified allergic rhinitis type J30.9 ; Essential hypertension I10 ; Former smoker Z87.891 ; Other asthma J45.998 and Multiple pulmonary nodules R91.8 Dara Grissom III, MD [address] [place] [address] [place] [address] 01/18/2024 Dara Grissom Hyperlipidemia E78.5 ; Other asthma J45.998 ; Essential hypertension I10 and Former smoker Z87.891 Dara Grissom III, MD [address] [place] [address] [address] [place] [address] 04/19/2024 Dara Grissom Hyperlipidemia E78.5 ; Former smoker Z87.891 ; Other asthma J45.998 ; Essential hypertension I10 and Chronic obstructive pulmonary disease, unspecified J44.9 Dara Grissom III, MD [address] [place] [address] [address] [place] [address] 08/20/2024 Dara Grissom Hyperlipidemia E78.5 ; Chronic obstructive pulmonary disease, unspecified J44.9 ; Allergic rhinitis, unspecified allergic rhinitis type J30.9 ; Essential hypertension I10 ; Former smoker Z87.891 ; Edentulous K00.0 ; Other asthma J45.998 and Solid nodule of lung 6 mm to 8 mm in diameter R91.1 Dara Grissom III, MD [address] [place] [address] [place] [address] 12/23/2023 Dara Grissom Assessments Encounter Date Diagnosis (ICD Code) Assessment Notes Treat ment Notes Treatment Clinical Notes 11/08/2023 Hyperlipidemia (ICD-10 - E78.5) I have ordered comprehensive bllood work to be done in the near futuree prior to a CT scan of the chest [facility] will include a fasting lipid profile. No changes in her regimen were made today. 11/08/2023 Solid nodule of lung 6 mm to 8 mm in diameter (ICD-10 - R91.1) She is a former smoker who has been found to have an 8 mm pulmonary nodule. She is due to have a repeat CT scan of the chest to follow that lesion to see if it might be a primary lung cancer. She has decided that she will have this study. On her last visit in February she declined to have a CT scan of the chest to follow the 8 mm pulmonary nodule. Today, she agreed and it was scheduled. 12/01/2023 Hyperlipidemia (ICD-10 - E78.5) I have ordered comprehensive bllood work to be done in the near futuree prior to a CT scan of the chest [facility] will include a fasting lipid profile. No changes in her regimen were made today. 12/01/2023 Solid nodule of lung 6 mm to 8 mm in diameter (ICD-10 - R91.1) She is a former smoker who has been found to have an 8 mm pulmonary nodule. She is due to have a repeat CT scan of the chest to follow that lesion to see if it might be a primary lung cancer. Test has been scheduled 12/15/2023 Hyperlipidemia (ICD-10 - E78.5) I have ordered comprehensive bllood work to be done in the near futuree prior to a CT [facility] a fasting lipid profile. No changes in her regimen were made today. 12/15/2023 Allergic rhinitis, unspecified allergic rhinitis type (ICD-10 - J30.9) She experienced moderate symptoms during pollen season, but she is not experiencing allergies at this time. No change in her regimen as necessary. 01/18/2024 Hyperlipidemia (ICD-10 - E78.5) I have ordered comprehensive bllood work to be done in the near futuree prior to a CT [facility] a fasting lipid profile. No changes in her regimen were made today. 01/18/2024 Other asthma (ICD-10 - J45.998) Her lungs were clear today. She has had no attacks of asthma lately. We discussed how to cope with pollen season. Her inhalers are up-to-date. 04/19/2024 Former smoker (ICD-10 - Z87.891) She is highly motivated not to smoke anymore. She has a plan for prevention of relapse in times of stress. 04/19/2024 Hyperlipidemia (ICD-10 - E78.5) The recent fasting lipid profile shows excellent control of her Relafen values. No changes in her regimen were made today. 08/20/2024 Hyperlipidemia (ICD-10 - E78.5) The recent fasting lipid profile shows excellent control of her Relafen values. No changes in her regimen were made today. 08/20/2024 Chronic obstructive pulmonary disease, unspecified (ICD-10 - J44.9) She was comfortable breathing room air today and there was no wheezing physical examination. 11/08/2023 Essential hypertension (ICD-10 - I10) Blood pressure today is 136/80. No change in her regimen was necessary. 12/01/2023 Allergic rhinitis, unspecified allergic rhinitis type (ICD-10 - J30.9) She experienced moderate symptoms during pollen season, but she is not experiencing allergies at this time. No change in her regimen as necessary. 12/15/2023 Essential hypertension (ICD-10 - I10) Blood pressure today is 136/80. No change in her regimen was necessary. 01/18/2024 Essential hypertension (ICD-10 - I10) Blood pressure today is 136/80. No change in her regimen was necessary. 04/19/2024 Other asthma (ICD-10 - J45.998) Her lungs were clear today. She has had no attacks of asthma lately. We discussed how to cope with pollen season. Her inhalers are up-to-date. 08/20/2024 Allergic rhinitis, unspecified allergic rhinitis type (ICD-10 - J30.9) She experienced moderate symptoms during pollen season, but she is not experiencing allergies at this time. No change in her regimen as necessary. 11/08/2023 Allergic rhinitis, unspecified allergic rhinitis type (ICD-10 - J30.9) She experienced moderate symptoms during pollen season, but she is not experiencing allergies at this time. No change in her regimen as necessary. 12/01/2023 Essential hypertension (ICD-10 - I10) Blood pressure today is 136/80. No change in her regimen was necessary. 12/15/2023 Former smoker (ICD-10 - Z87.891) She is highly motivated not to smoke anymore. She has a plan for prevention of relapse in times of stress. 01/18/2024 Former smoker (ICD-10 - Z87.891) She is highly motivated not to smoke anymore. She has a plan for prevention of relapse in times of stress. 04/19/2024 Essential hypertension (ICD-10 - I10) Blood pressure today is 136/80. No change in her regimen was necessary. 08/20/2024 Essential hypertension (ICD-10 - I10) Her bloood pressure today is 132/83. No change in her regimen was necessary. 11/08/2023 Former smoker (ICD-10 - Z87.891) She is highly motivated not to smoke anymore. She has a plan for prevention of relapse in times of stress. 12/01/2023 Former smoker (ICD-10 - Z87.891) She is highly motivated not to smoke anymore. She has a plan for prevention of relapse in times of stress. 12/15/2023 Other asthma (ICD-10 - J45.998) Her lungs were clear today. She has had no attacks of asthma lately. We discussed how to cope with pollen season. Her inhalers are up-to-date. 04/19/2024 Chronic obstructive pulmonary disease, unspecified (ICD-10 - J44.9) She was comfortable breathing room air today and there was no wheezing physical examination. 08/20/2024 Former smoker (ICD-10 - Z87.891) She is highly motivated not to smoke anymore. She has a plan for prevention of relapse in times of stress. 11/08/2023 Other asthma (ICD-10 - J45.998) Her lungs were clear today. She has had no attacks of asthma lately. We discussed how to cope with pollen season. Her inhalers are up-to-date. 12/01/2023 Other asthma (ICD-10 - J45.998) Her lungs were clear today. She has had no attacks of asthma lately. We discussed how to cope with pollen season. Her inhalers are up-to-date. 12/15/2023 Multiple pulmonary nodules (ICD-10 - R91.8) A CT angiogram of the chest in July 2022 was interpreted as showing an 8 mm right lower lobe nodule. A repeat CT scan of the chest was done November 28, 2023 in follow-up. This showed a 4 mm unchanged right middle lobe nodule, 2 mm unchanged right upper lobe nodule and a 4 mm nodule in the right lower lobe all 3 of which were unchanged. There was a new 4 mm left upper lobe nodule reported. Only one nodule was reported in 2021 on the CCT angiogram. These results were described in detail to the patient today as well as her familly members. I offered to do a PET CT scan but she declined not wishing to have any additional workup at this time. She has declined any other routine screening tests and diagnostic tests in the past as well. 08/20/2024 Edentulous (ICD-10 - K00.0) She has dentures and a fit well. No oral lesions were seen today. 11/08/2023 Noncompliance (ICD-10 - Z91.19) She has agreed to have the CT scan of the chest, but continues to decline a rectal exam, pelvic exam and breast exam.She is going to consider a bone density. 12/01/2023 Edentulous (ICD-10 - K00.0) She has dentures and a fit well. No oral lesions were seen today. 08/20/2024 Other asthma (ICD-10 - J45.998) Her lungs were clear today. She has had no attacks of asthma lately. We discussed how to cope with pollen season. Her inhalers are up-to-date. 12/01/2023 Noncompliance (ICD-10 - Z91.19) She continues to decline the screening tests enumerated in the HPI. 08/20/2024 Solid nodule of lung 6 mm [...] ordered and scheduled that her next visit. 12/01/2023 NSTEMI (non-ST elevated myocardial infarction) (ICD-10 - I21.4) This occurred July 05, 2022. Because of the rise in the troponins is unclear because the coronary catheterization showed no obstructions. She is going to follow-up with cardiology while being maintained on aspirin and clopidogrel and metoprolol tartrate. She has had no dyspnea or chest pain since her discharge from the hospital. She will be followed carefully.She was hospitalized overnight November 23, 2023 at [facility] with an elevated troponin. The discharge diagnosis was demand ischemia not myocardial infarction. Plan Of Treatment Pending Test Test Name Order Date PROFILE, FASTING (COMPREHENSIVE METABOLI C) 04/19/2024 PROFILE, FASTING (COMPREHENSIVE METABOLI C) 02/26/2022 PROFILE, FASTING (COMPREHENSIVE METABOLI C) 03/07/2023 PROFILE, FASTING (COMPREHENSIVE METABOLI C) 03/09/2019 PROFILE, FASTING (COMPREHENSIVE METABOLI C) 03/27/2019 PROFILE, FASTING (COMPREHENSIVE METABOLI C) 05/14/2020 PROFILE, FASTING (COMPREHENSIVE METABOLI C) 01/18/2024 PROFILE, FASTING (COMPREHENSIVE METABOLI C) 09/14/2021 PROFILE, FASTING (COMPREHENSIVE METABOLI C) 05/28/2022 PROFILE, FASTING (COMPREHENSIVE METABOLI C) 08/20/2024 PROFILE, FASTING (COMPREHENSIVE METABOLI C) 11/08/2023 PROFILE, FASTING (COMPREHENSIVE METABOLI C) 11/14/2019 PROFILE, RANDOM (COMPREHENSIVE METABOLIC ) 09/15/2020 LIPID PANEL 11/14/2019 LIPID PANEL 09/15/2020 LIPID PANEL 03/07/2023 LIPID PANEL 03/09/2019 LIPID PANEL 03/27/2019 LIPID PANEL 05/14/2020 LIPID PANEL 09/14/2021 CBC w DIFF 09/14/2021 CBC w DIFF 11/08/2023 CBC w DIFF 11/14/2019 CBC w DIFF 02/26/2022 CBC w DIFF 09/15/2020 CBC w DIFF 03/07/2023 CBC w DIFF 03/09/2019 CBC w DIFF 03/27/2019 CBC w DIFF 05/14/2020 CBC w DIFF 05/28/2022 RUBEOLA IGG (MEASLES) 03/09/2019 MUMPS AB IGG 03/09/2019 CT CHEST WITH CONTRAST 11/08/2023 RUBELLA 03/09/2019 CBC WITH AUTO DIFF 04/19/2024 CBC WITH AUTO DIFF 01/18/2024 CBC WITH AUTO DIFF 08/20/2024 Lipid Panel 01/18/2024 Lipid Panel 05/28/2022 Lipid Panel 08/20/2024 Lipid Panel 11/08/2023 Lipid Panel 02/26/2022 Lipid Panel 04/19/2024 Next Appt Details Provider Name:Dara Grissom, 11/26/2024 09:30:00 AM, [address] [place] [address] [address], [place], [address], Provider Name:Dara Grissom, 01/24/2025 09:15:00 AM, [address] [place] [address] [address], [place], [address], Insurance Providers Payer Name Payer Address Payer Phone Subscriber Number Group Number Insured Name Patient Relationship to Insured Coverage Start Date Coverage End Date [employer] [address] [place], [place] [id number] [phone] [id number] Mita Meier Self - patient is the insured MEDICARE NGS [address] [place] [address] [id number] Mita Meier Self - patient is the insured Medical (General) History Medical History History ICD Code anxiety asthma [id number] farsighted hyperlipidemia noncompliance with mammography and colon oscopy allergic rhinitis 8 mm pulmonary nodule, next chest CT Oct Surgical History Surgery Date(Month/Year) No history Hospitalization History Reason Date(Month/Year) Non-ST elevated myocardial infraction No history
--- OUTSIDE RECORDS SUMMARY | 2024-11-06 11:23 | XMS_ITS ---
Author Organization Dara Grissom III, MD Address [address] [place] [address] Care Team Providers Care Logistics Lead Name Role Phone Dara Grissom Primary Care Provider [phone] Allergies Allergen (clinical drug ingredient) Drug/Non Drug Allergy documented on EMR Reaction Allergy Type Onset Date Status sulfacetamide Sulfacetamide Unknown Drug Allergy Active Levaquin Unknown Drug Allergy Active shrimp allergenic extract Shrimp (Diagnostic) Asthma attack Drug Allergy Active REASON FOR VISIT Hypertension, Hyperlipidemia Medications Medication SIG (Take, Route, Frequency, Duration) Notes Start Date End Date Status Mometasone Furoate 200 MCG/ACT 2 puffs Inhalation Twice a day 12/15/2023 Active Serevent Diskus 50 MCG/ACT 1 puff Inhala tion Twice a day 12/15/2023 Active Clopidogrel Bisulfate 75 MG 1 tablet Ora lly Once a day Active Metoprolol Succinate ER 25 MG 1 tablet Orally Once a day Active Albuterol Sulfate 0.63 MG/3ML INHALE 3ML VIA NEB 4 TIMES A DAY NEEDED WHEEZING Inhalation Active Aspirin Adult Low Dose 81 MG 1 tablet Orally Once a day Active Albuterol Sulfate HFA 108 (90 Base) MCG/ACT 2 puffs Inhalation Once a day Active Lisinopril 10 MG 1 tablet Orally Once a day Active Sertraline HCl 100 MG 1 tablet Orally On ce a day Active LORazepam 0.5 MG 1 tablet at bedtime as needed Orally Once a day Active Arnuity Ellipta 200 MCG/ACT 1 puff Inhal ation Once a day 12/23/2023 Active Arnuity Ellipta 200 MCG/ACT 2 puffs Inha lation twice a day Active Atorvastatin Calcium 80 MG 1 tablet Oral ly Once a day Active predniSONE 20 MG TAKE 1 TABLET BY MOLLY TH WITH FOOD OR MILK EVERY DAY Active Social History Tobacco Use: Social History [...] smoker Vital Signs Temperature 98.1 degrees Fahrenheit 01/18/20 24 Blood pressure systolic 134 mm Hg 01/18/20 24 Blood pressure diastolic 80 mm Hg 024 Heart Rate 56 /min 01/18/2024 Height 61 in 01/18/2024 Weight 116 lbs 01/18/2024 BMI 21.92 kg/m2 01/18/2024 Encounters Encounter Location Date Provider Diagnosis Dara Grissom III, MD [address] [place] [address] [place] [address] 01/18/2024 Dara Grissom Hyperlipidemia E78.5 ; Other asthma J45.998 ; Essential hypertension I10 and Former smoker Z87.891 Assessments Encounter Date Diagnosis (ICD Code) Assessment Notes Treat ment Notes Treatment Clinical Notes 01/18/2024 Hyperlipidemia (ICD-10 - E78.5) I have ordered comprehensive bllood work to be done in the near futuree prior to a CT scan of the chest whhich will include a fasting lipid profile. No changes in her regimen were made today. 01/18/2024 Other asthma (ICD-10 - J45.998) Her lungs were clear today. She has had no attacks of asthma lately. We discussed how to cope with pollen season. Her inhalers are up-to-date. 01/18/2024 Essential hypertension (ICD-10 - I10) Blood pressure today is 136/80. No change in her regimen was necessary. 01/18/2024 Former smoker (ICD-1 0 - Z87.891) She is highly motivated not to smoke anymore. She has a plan for prevention of relapse in times of stress. Plan Of Treatment Medication Medication Name Sig Start Date Stop Date Notes Mometasone Furoate 200 MCG/ACT 2 puffs I nhalation Twice a day 12/15/2023 Serevent Diskus 50 MCG/ACT 1 puff Inhala tion Twice a day 12/15/2023 Clopidogrel Bisulfate 75 MG 1 tablet Orally Once a day Metoprolol Succinate ER 25 MG 1 tablet Orally Once a day Albuterol Sulfate 0.63 MG/3ML INHALE 3ML VIA NEB 4 TIMES A DAY NEEDED WHEEZING Inhalation Aspirin Adult Low Dose 81 MG 1 tablet Orally Once a day Albuterol Sulfate HFA 108 (9 0 Base) MCG/ACT 2 puffs Inhalation Once a day Lisinopril 10 MG 1 tablet Orally Once a day Sertraline HCl 100 MG 1 tablet Orally Once a day LORazepam 0.5 MG 1 tablet at bedtime as needed Orally Once a day Arnuity Ellipta 200 MCG/ACT 1 puff Inhalation Once a day 0 12/23/2023 Arnuity Ellipta 200 MCG/ACT 2 puffs Inha lation twice a day Atorvastatin Calcium 80 MG 1 tablet Orally Once a day predniSONE 20 MG TAKE 1 TABLET BY MOLLY TH WITH FOOD OR MILK EVERY DAY Pending Test Test Name Order Date PROFILE, FASTING (COMPREHENSIVE METABOLI C) 01/18/2024 CBC WITH AUTO DIFF 01/18/2024 Lipid Panel 01/18/2024 Next Appt Details Follow Up: 3 Months, Reason: OV Provider Name:Dara Grissom, 11/26/2024 09:30:00 AM, [address] [place] [address] KAIL[address] RIOS, [place], [address], Provider Name:Dara Grissom, 01/24/2025 09:15:00 AM, [address] [place] [address] KAILASH RIOS, [place], [id number], Progress Notes * Mita MEIERDOB:1945 ( 78 yo F)Acc No.[id number]:01/18/2024 Progress Notes Patient:?Meier Mita Provider:?Dara Grissom MD :1945???Age:78 Y???Sex:Female D ate:01/18/2024 Address:[address] [place] [address], [facility], [id number] Subjective: * Chief Complaints: * ???HypertensionHyperlipidemi a * HPI: ???COVID-19 Screening:? She reports that her breathing has improved with the preddnisone and the maintenance inhaler. No new complaints are present. She is sleeping well at night at this time. She is not coughing and has had no fever. She is taking no new medications. ?Questions?Have you experienced fever, chills, cough, sore throat, shortness of breath, difficulty breathing, muscle aches, loss of taste or smell??No ?Have you been exposed to the virus within the last 10 days??No ?Have you travelled internationally in the last 10 days??No ?Have you been exposed to COVID-19 in the past??No * ROS:?General/Constitutional:?pain?only normal aches and pains.?Chills?denies.?Fatigue?admits.?Fever?denies.?ENT:?Decreased hearing?in both ears.?Respiratory:?Cough?denies.?Cardiovascular:?Chest pain with exertion?denies.?Dyspnea on exertion?with prolonged activity.?Shortness of breath?that is mild.?Gastrointestinal:?Constipation?occasional.?Decreased appetite?denies.?Diarrhea?denies.?Heartburn?denies.?Nausea?denies.?Rectal bleeding?denies.?Vomiting?denies.?Hematology:?bruising?denies.?petechiae?denies.?Swollen glands?none have been noted.?Genitourinary:?Frequent urination?at night.?Musculoskeletal:?Muscle aches?denies.?Painful joints?denies.?Sciatica?denies.?Weakness?denies.?Skin:?Itching?denies.?Rash?denies.?Skin lesion(s)?denies.?Neurologic:?Difficulty speaking?denies.?Dizziness?denies.?Headache?denies.?Low back pain?denies.?Psychiatric:?Depressed mood?denies.? * Medical History:? * Surgical History:?Denies Pas t Surgical History * Hospitalization/Major Diagno stic Procedure:?Non-ST [...] Findings: Tobacco Non-User?Ex-cigarette smoker ???She lives in [place] and is . She enjoys sewing, knitting and crafts. She was born in [place]. * Medications:?TakingAspirin A dult Low Dose 81 MG Tablet Delayed Release [...] MCG/ACT Aerosol 2 puffs Inhalation Twice a dayArnuity Ellipta 200 MCG/ACT Aerosol Powder Breath Activated 2 puffs Inhalation twice a dayArnuity Ellipta 200 MCG/ACT Aerosol Powder Breath Activated 1 puff Inhalation Once a day, stop date 12/17/2024torvastatin Calcium 80 MG Tablet 1 tablet Orally Once a daypredniSONE 20 MG Tablet TAKE 1 TABLET BY MOUTH WITH FOOD OR MILK EVERY DAY Taking Aspirin Adult Low Dose 81 MG [...] MCG/ACT Aerosol 2 puffs Inhalation Twice a dayTaking Arnuity Ellipta 200 MCG/ACT Aerosol Powder Breath Activated 2 puffs Inhalation twice a dayTaking Arnuity Ellipta 200 MCG/ACT Aerosol Powder Breath Activated 1 puff Inhalation Once a day, stop date 12/17/2024Taking Atorvastatin Calcium 80 MG Tablet 1 tablet Orally Once a dayTaking predniSONE 20 MG Tablet TAKE 1 TABLET BY MOUTH WITH FOOD OR MILK EVERY DAY DiscontinuedLORazepam 0.5 MG Tablet 1 tablet at bedtime as needed Orally Once a dayMedication List reviewed and reconciled with the patientDiscontinued LORazepam 0.5 MG Tablet 1 tablet at bedtime as needed Orally Once a dayMedication List reviewed and reconciled with the patient * Allergies:?LevaquinSulfaceta mideShrimp (Diagnostic): Asthma attack - Side Effectsno[Allergies Verified] Objective: * Vitals:?Ht: 61, Wt:116, BMI: 21.92, BP:134/80, HR:56, Temp:98.1, Wt-k.62. * Examination: ???General Examination: ?GENERAL APPEARANCE:?pleasant, well nourished, well developed, in no acute distress, calm and relaxed.?HEAD:?atraumatic, normocephalic.?EYES:?eomi, perrla, anicteric, conjugate.?EARS:?normal.?NOSE:?septum intact.?ORAL CAVITY:?normal, unremarkable.?NECK/THYROID:?no jugular venous distention, no carotid bruit, thyroid normal.?LYMPH NODES:?no enlarged lymph nodes,spleen normal.?SKIN:?no suspicious lesions, anicteric.?HEART:?no clicks, gallops, murmurs, or rubs, regular rhythm, S1, S2 normal, no s3, or vascular bruits.?LUNGS:?clear to auscultation .?BREASTS:??no masses palpable bilaterally.?ABDOMEN:?bowel sounds normal, no ascites, no organomegaly, no mass.?RECTAL EXAM:?not examined.?MUSCULOSKELETAL:?extremities unremarkable, no clubbing, cyanosis or edema.?PERIPHERAL PULSES:?normal.?NEUROLOGIC:?alert and oriented, cranial nerves 2-12 grossly intact, deep tendon reflexes 2+ symmetrical, motor strength normal upper and lower extremities, sensory exam intact.?PSYCH:?alert, oriented.? Assessment: * Assessment: 1.?Hyperlipidemia - E78.5 (P rimary), I have ordered comprehensive bllood work to be done in the near futuree prior to a CT scan of the chest whhich will include a fasting lipid profile. No changes in her regimen were made today.?2.?Other asthma - J45.998, Her lungs were clear today. She has had no attacks of asthma lately. We discussed how to cope with pollen season. Her inhalers are up-to-date.?3.?Essential hypertension - I10, Blood pressure today is 136/80. No change in her regimen was necessary.?4.?Former smoker - Z87.891, She is highly motivated not to smoke anymore. She has a plan for prevention of relapse in times of stress.? Plan: * Treatment: 2.?Others? Continue predniSONE Tablet, [...] dangers of tobacco use and urged to quit.?01/18/2024 * Follow Up:?3 Months (Reason: OV) * Images: * Sign off status: Completed true * Provider:?Dara Grissom MD Date:?12/30 Generated for Wojciech cunha/Fahad/Aniaitting on:?11/06/2024 11:22 AM [...] been exposed to COVID-19 in the past?: No Examination Category Sub-Category Detail Notes General Examination GENERAL APPEARANCE: pleasant , well nourished, well developed, in no acute distress, calm and relaxed HEAD: atraumatic, normocep halic EYES: eomi, perrla, [...] lesion s, anicteric PERIPHERAL PULSES: normal BREASTS: no masses palpable b ilaterally MUSCULOSKELETAL: extremities unremark able, no clubbing, cyanosis or edema LYMPH NODES: no enlarged lymph no sana,spleen normal RECTAL EXAM: not examined PSYCH: alert, oriented ORAL CAVITY: normal, unremarkable
== END 2024-11-06 11:05 | disposition home or self-care (01) ==
PROVIDERS: PCP Internal Medicine Medical Oncology; Visit Provider Internal Medicine
DX: J30.9 Allergic rhinitis, unspecified (principal); J44.9 Chronic obstructive pulmonary disease, unspecified; F41.9 Anxiety disorder, unspecified
CPT/HCPCS: 99213

== ENCOUNTER → 2024-11-06 10:26 | Outpatient (BNVA) | payer MEDICARE, SELFPAY | PROVIDERS: PCP Internal Medicine Medical Oncology; Visit Provider Internal Medicine | DX: J44.9 Chronic obstructive pulmonary disease, unspecified (principal); J30.9 Allergic rhinitis, unspecified; F41.9 Anxiety disorder, unspecified | CPT/HCPCS: 99212 ==

== ENCOUNTER 2025-03-06 10:31 | Outpatient (AMB) | payer MEDICARE, SELFPAY ==
[2025-03-06 10:36] VITALS: BP 130/60; PULSE 58; O2SAT 96; BMI 24.1
--- NOTE | 2025-03-06 10:36 | MHC.OFFVIS ---
Vital Signs 03/06/25 10:36 Height 5 ft Weight 123 lb 7.342 oz BMI 24.1 BP 130/60 Blood Pressure Location Lt brachial Position Sitting Pulse 58 Pulse Source Pulse Oximeter Pulse Oximetry (%) 96 Oxygen Delivery Method Room Air Intake Visit Reasons: COPD Intake Note: pt is here for follow up and breathing is doing good, allergies are acting up [employer] Required: No Allergies levofloxacin [Levaquin] Allergy (Unknown, Verified 03/06/25 10:53) Unknown Sulfa (Sulfonamide Antibiotics) Allergy (Unknown, Verified 03/06/25 10:53) Unknown Medication List - Last Reconciled 03/06/25 by Toya Amezcua MD albuterol sulfate 0.63 mg (3 mL) inhalation QID PRN albuterol sulfate 90 mcg/actuation 2 puffs PO Q6H PRN 30 days aspirin 81 mg PO DAILY atorvastatin 80 mg PO BEDTIME clopidogrel 75 mg PO DAILY fluticasone furoate 200 mcg/actuation (Arnuity Ellipta) 1 inh inhalation DAILY lisinopril 10 mg PO DAILY lorazepam 0.5 mg (1/2 x 1 mg) PO TID PRN 30 days metoprolol succinate ER 25 mg PO DAILY nebulizers (AeroEclipse II Nebulizer) As directed sertraline 100 mg PO DAILY Do you need a note to return to daycare/school/sports/work: No HPI HPI COPD: Details: This 79 years old very pleasant female comes for her routine follow-up after 4 months. She has been doing very, well since her last visit She has had no acute exacerbation. Only occasional cough. Nasal symptoms are also under control. The good thing is that she has had no acute anxiety attacks. She uses lorazepam only once in a while and does not need to use it every night. I think sertraline 50 mg daily is helping. [facility] Medical History (Updated 03/06/25 @ 11:00 by Toya Amezcua MD) Allergic rhinitis HTN (hypertension) HLD (hyperlipidemia) Anxiety COPD (chronic obstructive pulmonary disease) Social History Alcohol intake: current Alcohol intake frequency: a few times a month Patient Tobacco Use Status: Former Tobacco user Years Smoked: 1979 service: No Current occupational status: retired Review of Systems Const All systems reviewed & are unremarkable except as noted in HPI and below Eyes Reports no additional complaints ENT Reports no additional complaints Card Denies chest pain, Reports irregular heart rhythm, Denies leg edema and Reports dyspnea on exertion (Mild) Resp Reports cough, Reports dyspnea on exertion (Mild) and Reports wheezing GI Reports other (Appetite somewhat poor) Reports no additional complaints Musc Reports no additional complaints Skin/Breast Reports system reviewed and no additional complaints, except as documented Neuro Reports no additional complaints Psych Reports anxiety Aller/Immun Reports wheezing Physical Exam Vital Signs: Last Vital Signs Pulse 58 03/06/25 10:36 BP 130/60 03/06/25 10:36 Pulse Ox 96 03/06/25 10:36 Oxygen Delivery Method Room Air 03/06/25 10:36 BMI result Body Mass Index 24.1 Const General: healthy appearing (Anxious, and somewhat depressed.), comfortable, no acute distress, alert and awake Orientation/consciousness: patient oriented x3 HEENT Head: Yes normal to inspection General nose exam: No nasal polyps present and No nasal discharge present Face and sinus: Yes sinuses nontender Mouth: oropharynx normal Throat: Yes posterior oropharynx normal Eyes General: appearance normal, both eyes and all related structures Neck Neck: Yes normal visual inspection, Yes no lymphadenopathy, Yes trachea midline and Yes no JVD Thyroid: Thyroid normal Chest Chest palpation & inspection: normal inspection of the chest, normal palpation of entire chest wall and no tenderness Resp Other: Percussion note resonant, breath sounds are distant on both sides with prolonged expiratory phase. No wheezes crepitations or rhonchi are heard today. Cardio Palpation: normal PMI Rate: regular rate Rhythm: regular rhythm Heart sounds: no gallops and no murmurs Peripheral pulses: Peripheral pulses 2+ throughout GI Palpation (GI): Soft to palpation, nontender, No hepatosplenomegaly present and no masses Auscultation: normal bowel sounds Back/Spine/Pelvis Thoracic/Lumbar Spine: thoracic and lumbar spine normal to inspection Skin General skin exam: no rashes or lesions noted Neuro General: patient oriented x3 and no focal motor deficits Cranial nerves: Yes CN's II-XII intact bilaterally Extrem General: Yes normal to inspection, Yes no clubbing, cyanosis or edema and Yes no calf tenderness Psych Appearance: grossly normal, well kempt and other (Not very anxious at this time ) Speech and movement: Normal speech and movement present Assessment & Plan Assessment & Plan (1) COPD (chronic obstructive pulmonary disease): Comment: ASTHMA/COPD ,MILD TO MODERTAE ,FAIRLY WELL CONTROLLED AT THIS TIME. SHE DOES NEED TO USE CORTICOSTEROID INHALER FOR CONTROLLING ASTHMA SYMPTOMS. Code(s): J44.9 - Chronic obstructive pulmonary disease, unspecified Category: Medical Plan: Continue to use Arnuity Ellipta-200 mcg 1 inhalation daily. Albuterol HFA 2 puffs Q 6 hours p.r.n.. Alternatively may use albuterol solution 0.63 mg per 3 male in the nebulizer Q 6 hours p.r.n.. (2) Allergic rhinitis: Comment: CHRONIC NONSPECIFIC ALLERGIC RHINITIS/POSSIBLE VASOMOTOR RHINITIS, MILD TO MODERATE DEGREE OF SYMPTOMS BUT MOSTLY WELL CONTROLLED. Code(s): J30.9 - Allergic rhinitis, unspecified Category: Medical Plan: No active treatment at this time but may use OTC antihistaminics such as loratadine 10 mg once a day p.r.n. (3) Anxiety: Comment: SUFFERS FROM CHRONIC ANXIETY DISORDER. FREQUENT ATTACKS OF ANXIETY/PANIC AND SHORTNESS OF BREATH. ARE BETTER CONTROLLED SINCE SHE IS ON ARNUITY. Now using lorazepam 0.5 mg only p.r.n.. She said she does not have to use it every night Code(s): F41.9 - Anxiety disorder, unspecified Category: Medical Plan: Reassured. Keep lorazepam on hand and use 0.5 mg once at night or during the daytime p.r.n.. Coding Level of Care Code Est Pt Level 3 (70900) Diagnoses COPD (chronic obstructive pulmonary disease) J44.9 Allergic rhinitis J30.9 Anxiety F41.9
--- OUTSIDE RECORDS SUMMARY | 2025-03-06 11:50 | XMS_ITS ---
Author Organization Dara Grissom III, MD Address [address] [place] [address] Care Team Providers Care Heavy Equipment Service Manager Name Role Phone Dara Grissom Primary Care Provider [phone] Allergies Allergen (clinical drug ingredient) Drug/Non Drug Allergy documented on EMR Reaction Allergy Type Onset Date Status sulfacetamide Sulfacetamide Unknown Drug Allergy Active Levaquin Unknown Drug Allergy Active shrimp allergenic extract Shrimp (Diagnostic) Asthma attack Drug Allergy Active Results Component Value Reference Range Notes URINE DIP STICK Reviewed date:01/24/2025 10:12:56 AM Interpretation: Performing Lab: Notes/Report: SG 1.010 1.005 - 1.025 pH 5.0 5.0 - 9.0 SRIDHAR 15 +- Negative - NIT Negative Negative - PRO 15 Negative - Trace GLU Negative Negative - KET Negative Negative - UBG 0.2 0.1 - 1.8 COURTNEY Negative 0.2 - 1.3 BLD Negative Negative - REASON FOR VISIT annual exam Medications Medication SIG (Take, Route, Frequency, Duration) Notes Start Date End Date Status Mometasone Furoate 200 MCG/ACT 2 puffs Inhalation Twice a day 12/15/2023 Active Serevent Diskus 50 MCG/ACT 1 puff Inhala tion Twice a day 12/15/2023 Active Lisinopril 10 MG TAKE 1 TABLET BY MOLLY TH EVERY DAY Active Albuterol Sulfate 0.63 MG/3ML INHALE 3ML VIA NEB 4 TIMES A DAY NEEDED WHEEZING Inhalation Active LORazepam 0.5 MG 1 tablet at bedtime as needed Orally Once a day Active Arnuity Ellipta 200 MCG/ACT 1 puff Inhal ation Once a day 12/23/2023 Active predniSONE 20 MG TAKE 1 TABLET BY MOLLY TH WITH FOOD OR MILK EVERY DAY Active Clopidogrel Bisulfate 75 MG 1 tablet Ora lly Once a day Active Albuterol Sulfate HFA 108 (90 Base) MCG/ACT 2 puffs Inhalation Once a day Active Aspirin Adult Low Dose 81 MG 1 tablet Orally Once a day Active Metoprolol Succinate ER 25 MG TAKE 1 TABLET BY MOUTH EVERY DAY Active Atorvastatin Calcium 80 MG TAKE 1 TABLET BY MOUTH EVERY DAY FOR 90 DAYS Active Sertraline HCl 100 MG TAKE 1 TABLET BY M OUTH EVERY DAY Active Social History Tobacco Use: Social History Observation Description Date Details (start date - stop date) Former Smoker NA - NA Sex Assigned At : Social History Observation Description Sex Assigned At Female Tobacco Control (Standard) Question Answer Notes Tobacco use: Former smoker How long has it been since you last smoked? Grea ter than 10 years Additional Findings: Tobacco non-user Ex-cigaret te smoker AUDIT-C (Standard) Question Answer Notes Did you have a drink containing alcohol in the p ast year? No Points 0 Interpretation Negative Problems Problem Type SNOMED Code ICD Code Onset Dates Problem Status W/U Status Risk Notes Problem [id number] NSTEMI (non-ST elevated myocardial infarction) (I21.4) Active confirmed This occurred July 05, 2022. Because of [...] was hospitalized overnight November 23, 2023 at [facility] with an elevated troponin. The discharge diagnosis was demand ischemia not myocardial infarction. Vital Signs Temperature 99.6 degrees Fahrenheit 01/25/20 25 Blood pressure systolic 134 mm Hg 01/25/20 25 Blood pressure diastolic 76 mm Hg 025 Heart Rate 78 /min 01/24/2025 Height 61 in 01/24/2025 Weight 110 lbs 01/24/2025 BMI 20.78 kg/m2 01/24/2025 Encounters Encounter Location Date Provider Diagnosis Dara Grissom III, MD [address] [place] [address] [address] [place], [place] [id number] 01/24/2025 Dara Grissom Hyperlipidemia E78.5 ; Former smoker Z87.891 ; Other asthma J45.998 ; Essential hypertension I10 ; Chronic obstructive pulmonary disease, unspecified J44.9 ; Multiple pulmonary nodules R91.8 ; NSTEMI (non-ST elevated myocardial infarction) I21.4 ; Edentulous K00.0 and Weight loss R63.4 Assessments Encounter Date Diagnosis (ICD Code) Assessment Notes Treat ment Notes Treatment Clinical Notes 01/24/2025 Hyperlipidemia (ICD-10 - E78.5) 01/24/2025 Former smoker (ICD-10 - Z87.891) She is highly motivated not to smoke anymore. She has a plan for prevention of relapse in times of stress. 01/24/2025 Other asthma (ICD-10 - J45.998) Her lungs were clear today. She has had no attacks of asthma lately. We discussed how to cope with pollen season. Her inhalers are up-to-date. 01/24/2025 Essential hypertension (ICD-10 - I10) Her bloood pressure today is 132/83. No change in her regimen was necessary. 01/24/2025 Chronic obstructive pulmonary disease, unspecified (ICD-10 - J44.9) She was comfortable breathing room air today and there was no wheezing physical examination. 01/24/2025 Multiple pulmonary nodules (ICD-10 - R91.8) A repeaat CT scan has been ordered. She is asyymptomatic at thiis time. However, a weight loss is noted. 01/24/2025 NSTEMI (non-ST elevated myocardial infarction) (ICD-10 - [...] was hospitalized overnight November 23, 2023 at [facility] with an elevated troponin. The discharge diagnosis was demand ischemia not myocardial infarction. 01/24/2025 Edentulous (ICD-10 - K00.0) She has dentures and a fit well. No oral lesions were seen today. 01/24/2025 Weight loss (ICD-10 - R63.4) She has lost an additional 2 pounds since her last visit. Body mass index is in the normal range but low at 20. Her weight is being observed carefully. She is being evaluated for the cause of weight loss. Plan Of Treatment Medication Medication Name Sig Start Date Stop Date Notes Mometasone Furoate 200 MCG/ACT 2 puffs I nhalation Twice a day 12/15/2023 Serevent Diskus 50 MCG/ACT 1 puff Inhala tion Twice a day 12/15/2023 Lisinopril 10 MG TAKE 1 TABLET BY MOLLY TH EVERY DAY Albuterol Sulfate 0.63 MG/3ML INHALE 3ML VIA NEB 4 TIMES A DAY NEEDED WHEEZING Inhalation LORazepam 0.5 MG 1 tablet at bedtime as needed Orally Once a day Arnuity Ellipta 200 MCG/ACT 1 puff Inhalation Once a day 0 12/23/2023 predniSONE 20 MG TAKE 1 TABLET BY MOLLY TH WITH FOOD OR MILK EVERY DAY Clopidogrel Bisulfate 75 MG 1 tablet Orally Once a day Albuterol Sulfate HFA 108 (9 0 Base) MCG/ACT 2 puffs Inhalation Once a day Aspirin Adult Low Dose 81 MG 1 tablet Orally Once a day Metoprolol Succinate ER 25 MG TAKE 1 TAB LET BY MOUTH EVERY DAY Atorvastatin Calcium 80 MG TAKE 1 TABLET BY MOUTH EVERY DAY FOR 90 DAYS Sertraline HCl 100 MG TAKE 1 TABLET BY M OUTH EVERY DAY Next Appt Details Follow Up: 2 1/2 Months, Priyanka son: OV Provider Name:Dara Grissom, 04/11/2025 09:45:00 AM, [address] [place] [address] [address], [place], [address], Provider Name:Dara Grissom, 01/29/2026 09:30:00 AM, [address] [place] [address] [address], [place] [address], Progress Notes * Mita MEIERDOB:1945 ( 79 yo F)Acc No.[id number]:01/24/2025 Progress Notes Patient:?Mita MEIER Provider:?Dara Grissom MD :1945???Age:79 Y???Sex:Female D ate:01/24/2025 Address:[address] [place] [address], [facility], [id number] Subjective: * Chief Complaints: * ???Annual exam * HPI: ???Depression Screening:?She returns to the office at the age of 79 for her annual physical examination.? She was accompanied by her son who cares for her.? She was awake and alert and ambulatory.? She said she had no new complaints.? She states she is compliant with her medications.? She says her memory difficulties are the same and not worse.? Her son agreed with these statements. She is followed here for allergic rhinitis, elevated blood pressure, hyperlipidemia, occasional asthma, anxiety and COPD.? Recently she has had some weight loss. Blood work that was done January 17, 2025 showed glucose 89 BUN 15 creatinine 0.89, GFR? 66, White count 6.4 hematocrit 41.8 platelets 225. ?PHQ-9?Little interest or pleasure in doing things?Not at all ?Feeling down, depressed, or hopeless?Not at all ?Trouble falling or staying asleep, or sleeping too much?Not at all ?Feeling tired or having little energy?Not at all ?Poor appetite or overeating?Not at all ?Feeling bad about yourself or that you are a failure, or have let yourself or your family down?Several days ?Trouble concentrating on things, such as reading the newspaper or watching television?Several days ?Moving or speaking so slowly that other people could have noticed; or the opposite, being so fidgety or restless that you have been moving around a lot more than usual?More than half the days ?Thoughts that you would be better off or of hurting yourself in some way?Not at all ?Total Score?4 ?Interpretation?Minimal Depression ???COVID-19 Screening:?Questions?Have you had any new onset fever, chills, cough, congestion, sore throat, shortness of breath, muscle aches??No ???SDOH Questions:?SDOH Questions?In the past year have you been worried about losing your housing??No ?In the past year have you or any family members you live with been unable to get any of the following when it was really needed? Check all that apply:?None ???Fall Risk Screening:?Fall History?Have you had any falls with injury in the past year??No ?Have you had two or more falls in the past year??No ?Fall Risk Assessment:?No falls in the past year * ROS:?General/Constitutional:?pain?only normal aches and pains.?Chills?denies.?Fatigue?admits.?Fever?denies.?ENT:?Decreased hearing?mild.?Respiratory:?Cough?denies.?Cardiovascular:?Chest pain with exertion?denies.?Dyspnea on exertion?denies.?Shortness of breath?denies.?Gastrointestinal:?Constipation?occasional.?Decreased [...] 61 of cardiomyopathy. * Social History:?Tobacco Use:?Tobacco Control (Standard)?Tobacco use:?Former smoker ?How long has it been since you last smoked??Greater than 10 years ?Additional Findings: Tobacco non-user?Ex-cigarette smoker ???Drugs/Alcohol:?Drugs?Have you used drugs other than those for medical reasons in the past 12 months??No ???Drug/Alcohol:?AUDIT-C (Standard)?Did you have a drink containing alcohol in the past year??No ?Points?0 ?Interpretation?Negative ???She lives in [place] and is . She enjoys sewing, knitting and crafts. She was born in [place]. Smoking: Past smoker; Diet: Unhealthy, high in sugar and fat; Living Situation: Lives with caregiver. * Medications:?TakingMetoprolo l Succinate ER 25 MG Tablet Extended Release 24 Hour TAKE 1 TABLET BY MOUTH EVERY DAY Clopidogrel Bisulfate 75 MG Tablet 1 tablet Orally Once a day predniSONE 20 MG Tablet TAKE 1 TABLET BY MOUTH WITH FOOD OR MILK EVERY DAY Arnuity Ellipta 200 MCG/ACT Aerosol Powder Breath Activated 1 puff Inhalation Once a day Aspirin Adult Low Dose 81 MG Tablet Delayed Release 1 tablet Orally Once a day Albuterol Sulfate HFA 108 (90 Base) MCG/ACT Aerosol Solution 2 puffs Inhalation Once a day LORazepam 0.5 MG Tablet 1 tablet at bedtime as needed Orally Once a day Albuterol Sulfate 0.63 MG/3ML Nebulization Solution INHALE 3ML VIA NEB 4 TIMES A DAY NEEDED WHEEZING Inhalation Serevent Diskus 50 MCG/ACT Aerosol Powder Breath Activated 1 puff Inhalation Twice a day Mometasone Furoate 200 MCG/ACT Aerosol 2 puffs Inhalation Twice a day Atorvastatin Calcium 80 MG Tablet TAKE 1 TABLET BY MOUTH EVERY DAY FOR 90 DAYS Sertraline HCl 100 MG Tablet TAKE 1 TABLET BY MOUTH EVERY DAY Lisinopril 10 MG Tablet TAKE 1 TABLET BY MOUTH EVERY DAY Medication List reviewed and reconciled with the patientTaking Metoprolol Succinate ER 25 MG Tablet Extended Release 24 Hour TAKE 1 TABLET BY MOUTH EVERY DAY Taking Clopidogrel Bisulfate 75 MG Tablet 1 tablet Orally Once a day Taking predniSONE 20 MG Tablet TAKE 1 TABLET BY MOUTH WITH FOOD OR MILK EVERY DAY Taking Arnuity Ellipta 200 MCG/ACT Aerosol Powder Breath Activated 1 puff Inhalation Once a day Taking Aspirin Adult Low Dose 81 MG Tablet Delayed Release 1 tablet Orally Once a day Taking Albuterol Sulfate HFA 108 (90 Base) MCG/ACT Aerosol Solution 2 puffs Inhalation Once a day Taking LORazepam 0.5 MG Tablet 1 tablet at bedtime as needed Orally Once a day Taking Albuterol Sulfate 0.63 MG/3ML Nebulization Solution INHALE 3ML VIA NEB 4 TIMES A DAY NEEDED WHEEZING Inhalation Taking Serevent Diskus 50 MCG/ACT Aerosol Powder Breath Activated 1 puff Inhalation Twice a day Taking Mometasone Furoate 200 MCG/ACT Aerosol 2 puffs Inhalation Twice a day Taking Atorvastatin Calcium 80 MG Tablet TAKE 1 TABLET BY MOUTH EVERY DAY FOR 90 DAYS Taking Sertraline HCl 100 MG Tablet TAKE 1 TABLET BY MOUTH EVERY DAY Taking Lisinopril 10 MG Tablet TAKE 1 TABLET BY MOUTH EVERY DAY Medication List reviewed and reconciled with the patient * Allergies:?LevaquinSulfaceta mideShrimp (Diagnostic): Asthma attack - Side Effectsno[Allergies Verified] Objective: * Vitals:?Ht: 61, Wt:110, BMI: 20.78, BP:134/76, HR:78, Temp:99.6, Wt-k.9. * ???Past Orders: Lab:URINE DIP STICK * Collection Date 01/24/2025 11/08/2023 09/14/2021 Order Date 01/24/2025 11/08/2023 09/14/2021 SG 1.010 (Ref Range: 1.005 - 1.025) 1.010 (Ref Range: 1.005 - 1.025) 1.005 pH 5.0 (Ref Range: 5.0 - 9.0) 6.5 (Ref Range: 5.0 - 9.0) 7 SRIDHAR 15 +- (Ref Range: Negative -) Negative (Ref Range: Negative -) neg NIT Negative (Ref Range: Negative -) Negative (Ref Range: Negative -) neg PRO 15 (Ref Range: Negative - Trace) 15 (Ref Range: Negative - Trace) trace GLU Negative (Ref Range: Negative -) Negative (Ref Range: Negative -) normal KET Negative (Ref Range: Negative -) Negative (Ref Range: Negative -) neg UBG 0.2 (Ref Range: 0.1 - 1.8) 0.2 (Ref Range: 0.1 - 1.8) normal COURTNEY Negative (Ref Range: 0.2 - 1.3) Negative (Ref Range: 0.2 - 1.3) neg BLD Negative (Ref Range: Negative -) Negative (Ref Range: Negative -) neg Menstrating NR No no * Examination: ???General Examination: ?GENERAL APPEARANCE:?pleasant, well nourished, well developed, in no acute distress, calm and relaxed, elderly woman.?HEAD:?atraumatic, normocephalic.?EYES:?eomi, perrla, anicteric, conjugate.?EARS:?normal.?NOSE:?septum intact.?ORAL CAVITY:?normal, unremarkable.?NECK/THYROID:?no jugular venous distention, no carotid bruit, thyroid normal.?LYMPH NODES:?no enlarged lymph nodes,spleen normal.?SKIN:?no suspicious lesions, anicteric.?HEART:?no clicks, gallops, murmurs, or rubs, regular rhythm, S1, S2 normal, no s3, or vascular bruits.?LUNGS:?, diminished breath sounds throughout, no wheezes, rales, rhonchi.?BREASTS:?no dimpling, no discharge, no drainage, no masses palpable bilaterally, nontender, symmetrical.?ABDOMEN:?bowel sounds normal, no ascites, no organomegaly, no mass.?RECTAL EXAM:?not examined.?MUSCULOSKELETAL:?extremities unremarkable, no clubbing, cyanosis or edema.?PERIPHERAL PULSES:?normal.?NEUROLOGIC:?alert and oriented, cranial nerves 2-12 grossly intact, deep tendon reflexes 2+ symmetrical, motor strength normal upper and lower extremities, sensory exam intact, 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 Assessment: * Assessment: 1.?Hyperlipidemia - E78.5 (P rimary)???2.?Former smoker - Z87.891???Notes :She is highly motivated not to smoke anymore. She has a plan for prevention of relapse in times of stress.???3.?Other asthma - J45.998???Notes :Her lungs were clear today. She has had no attacks of asthma lately. We discussed how to cope with pollen season. Her inhalers are up-to-date.???4.?Essential hypertension - I10???Notes :Her bloood pressure today is 132/83. No change in her regimen was necessary.???5.?Chronic obstructive pulmonary disease, unspecified - J44.9???Notes :She was comfortable breathing room air today and there was no wheezing physical examination.???6.?Multiple pulmonary nodules - R91.8???Notes :A repeaat CT scan has been ordered. She is asyymptomatic at thiis time. However, a weight loss is noted.???7.?NSTEMI (non-ST elevated myocardial infarction) - I21.4???Notes :This occurred July 05, 2022. Because of the rise in the troponins is unclear because the coronary catheterization showed no obstructions. She is going to follow-up with cardiology while being maintained on aspirin and clopidogrel and metoprolol tartrate. She has had no dyspnea or chest pain since her discharge from the hospital. She will be followed carefully.She was hospitalized overnight November 23, 2023 at [facility] with an elevated troponin. The discharge diagnosis was demand ischemia not myocardial infarction.???8.?Edentulous - K00.0???Notes :She has dentures and a fit well. No oral lesions were seen today.???9.?Weight loss - R63.4???Notes :She has lost an additional 2 pounds since her last visit.? Body mass index is in the normal range but low at 20.? Her weight is being observed carefully.? She is being evaluated for the cause of weight loss.??? Plan: * Treatment: * Labs:? * ?Lab: URINE DIP STICK (C ollection Date & Time - 01/24/2025) ? Value Reference Range ?SG 1.010 1.005 - 1.025 * ?pH 5.0 5.0 - 9.0 * ?SRIDHAR 15 +- Negative - * ?NIT Negative Negative - * ?PRO 15 Negative - Trac e * ?GLU Negative Negative - * ?KET Negative Negative - * ?UBG 0.2 0.1 - 1.8 * ?COURTNEY Negative 0.2 - 1.3 * ?BLD Negative Negative - * Procedure Codes:?10030 URINE -NO MICRO * Preventive Medicine:? ??Counseling:?Care goal follow-up plan:?Counseling for abnormal BMI given?Yes ?Below Normal BMI Follow-up?Dietary education for weight gain, Dietary management education, guidance, and counseling, Feeding regime, Lifestyle education regarding diet, Nutrition / feeding management, Prescribed diet education, Special diet education, Intervention, Order not done: Medical or Other reason not done ?Smoking/Tobacco Use?Patient counseled on the dangers of tobacco use and urged to quit.?01/24/2025 ??COPD Care Plan:?Patient Lifestyle Goals?Be able to be more active with friends and family, Reduce number of ED and hospitalizations, Relieve symptoms and improve quality of life.?Treatment Goals?Exercise to help whole body, including lungs, Eat a nutritious diet and increase water consumption to 6-8 glasses a day, Eat 4-5 small meals throughout the day.?Barriers?no barriers.?Self-Managment Goals?Eat a healthy diet, Exercise at least 3xs per week for at least 30 mins.? * Follow Up:?2 1/2 Months (Priyanka son: OV) * Images: * Sign off status: Completed true * Provider:?Dara Grissom MD Date:?12/30 Generated for Wojciech cunha/Fahad/eTshahriarsmitting on:?03/06/2025 11:50 AM EDT History and Physical Notes * HPI (History of Present Illness) Category Sub-Category Detail Notes Depression Screening PHQ-9 Little inte rest or pleasure in doing things: Not at all Feeling down, depressed, or hopeless: No t at all Trouble falling or staying asleep, or sl eeping too much: Not at all Feeling tired or having little energy: N ot at all Poor appetite or overeating: Not at all Feeling bad about yourself o r that you are a failure, or have let yourself or your family down: Several days Trouble concentrating on thi ngs, such as reading the newspaper or watching television: Several days Moving or speaking so slowly that other people could have noticed; or the opposite, being so fidgety or restless that you have been moving around a lot more than usual: More than half the days Thoughts that you would be b amari off or of hurting yourself in some way: Not at all Total Score: 4 Interpretation: Minimal Depression Fall Risk Screening Fall History Have you had any falls with injury in the past year?: No Have you had two or more falls in the year?: No Fall Risk Assessment:: No falls in the year COVID-19 Screening Questions Have you had any new onset fever, chills, cough, congestion, sore throat, shortness of breath, muscle aches?: No SDOH Questions SDOH Questions In the past year have you been worried about losing your housing?: No In the past year have you or any family members you live with been unable to get any of the following when it was really needed? 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
--- OUTSIDE RECORDS SUMMARY | 2025-03-06 11:50 | XMS_ITS ---
Author Organization Dara Grissom III, MD Address [address] [place] [address] Care Team Providers Care Linux Programmer Name Role Phone Dara Grissom Primary Care Provider [phone] Allergies Allergen (clinical drug ingredient) Drug/Non Drug Allergy documented on EMR Reaction Allergy Type Onset Date Status sulfacetamide Sulfacetamide Unknown Drug Allergy Active Levaquin Unknown Drug Allergy Active shrimp allergenic extract Shrimp (Diagnostic) Asthma attack Drug Allergy Active REASON FOR VISIT Recent respiratory infection, Elevated ccholesterol, Weight losss, Hypertension, Hyperlipidemia, COPD Medications Medication SIG (Take, Route, Frequency, Duration) Notes Start Date End Date Status Mometasone Furoate 200 MCG/ACT 2 puffs Inhalation Twice a day 12/15/2023 Active Serevent Diskus 50 MCG/ACT 1 puff Inhala tion Twice a day 12/15/2023 Active Albuterol Sulfate 0.63 MG/3ML INHALE 3ML VIA NEB 4 TIMES A DAY NEEDED WHEEZING Inhalation Active Sertraline HCl 100 MG 1 tablet Orally On ce a day Active LORazepam 0.5 MG 1 tablet at bedtime as needed Orally Once a day Active Atorvastatin Calcium 80 MG 1 tablet Oral ly Once a day Active Albuterol Sulfate HFA 108 (90 Base) MCG/ACT 2 puffs Inhalation Once a day Active Lisinopril 10 MG 1 tablet Orally Once a day Active Aspirin Adult Low [...] 1 TABLET BY MOUTH EVERY DAY Active Social History Tobacco Use: Social History Observation Description Date Details (start date - stop date) Former Smoker NA - NA Sex Assigned At : Social History Observation Description Sex Assigned At Female Tobacco Use/Smoking Question Answer Notes Patient is a former smoker Alcohol Screen Question Answer Notes Did you have a drink containing alcohol in the p ast year? No Points 0 Interpretation Negative Problems Problem Type SNOMED Code ICD Code Onset Dates Problem Status W/U Status Risk Notes Problem 95751104 Weight loss (R63.4) Active confirmed She has lost an additional 2 pounds since her last visit. Body mass index is in the normal range but low at 20. Her weight is being observed carefully. She is being evaluated for the cause of weight loss. Vital Signs Temperature 98.2 degrees Fahrenheit 11/26/19 25 Blood pressure systolic 130 mm Hg 11/26/19 25 Blood pressure diastolic 61 mm Hg 025 Heart Rate 56 /min 11/26/2024 Height 61 in 11/26/2024 Weight 112 lbs 11/26/2024 BMI 21.16 kg/m2 11/26/2024 Encounters Encounter Location Date Provider Diagnosis Dara Grissom III, MD [address] [place] [address] [place] [address] 11/26/2024 Dara Grissom Hyperlipidemia E78.5 ; Weight loss R63.4 ; Multiple pulmonary nodules R91.8 ; Solid nodule of lung 6 mm to 8 mm in diameter R91.1 ; Allergic rhinitis, unspecified allergic rhinitis type J30.9 and Former smoker Z87.891 Assessments Encounter Date Diagnosis (ICD Code) Assessment Notes Treat ment Notes Treatment Clinical Notes 11/26/2024 Hyperlipidemia (ICD-10 - E78.5) Her cholesterol kemi been stable in years past. The current value is 295. It is being repeated as I think this is a dietary iissue. 11/26/2024 Weight loss (ICD-10 - R63.4) She has lost 10 pounds unintentionally since her last visit in July 2024. This is beiing evaluated at this time. 11/26/2024 Multiple pulmonary nodules (ICD-10 - R91.8) A repeaat CT scan has been ordered. She is asyymptomatic at thiis time. However, a weight loss is noted. 11/26/2024 Solid nodule of lung 6 mm to 8 mm in diameter (ICD-10 - R91.1) It has been a year since her last chest CT scan. I have ordered another chest CT scan to monitor the pulmonary nodules which will be done in the near future. 11/26/2024 Allergic rhinitis, unspecified allergic rhinitis type (ICD-10 - J30.9) She experienced moderate symptoms during pollen season, but she is not experiencing allergies at this time. No change in her regimen as necessary. 11/26/2024 Former smoker (ICD-10 - Z87.891) She is highly motivated not to smoke anymore. She has a plan for prevention of relapse in times of stress. Plan Of Treatment Medication Medication Name Sig Start Date Stop Date Notes Mometasone Furoate 200 MCG/ACT 2 puffs I nhalation Twice a day 12/15/2023 Serevent Diskus 50 MCG/ACT 1 puff Inhala tion Twice a day 12/15/2023 Albuterol Sulfate 0.63 MG/3ML INHALE 3ML VIA NEB 4 TIMES A DAY NEEDED WHEEZING Inhalation Sertraline HCl 100 MG 1 tablet Orally Once a day LORazepam 0.5 MG 1 tablet at bedtime as needed Orally Once a day Atorvastatin Calcium 80 MG 1 [...] 1 TAB LET BY MOUTH EVERY DAY Pending Test Test Name Order Date PROFILE, FASTING (COMPREHENSIVE METABOLI C) 11/26/2024 CT CHEST WITH CONTRAST 11/26/2024 CBC WITH AUTO DIFF 11/26/2024 Lipid Panel 11/26/2024 Next Appt Details Follow Up: As Scheduled, In December, Reason: Annual Exam, Physical checkup and recheck cholesterol Provider Name:Dara Grissom, 04/11/2025 09:45:00 AM, [address] [place] [address] [address], [place], [phone], Provider Name:Dara Grissom, 01/29/2026 09:30:00 AM, [address] [place] [address] [address] RIOS, [place]DES CHARLES, [phone], Progress Notes * Mita MEIERDOB:1945 ( 79 yo F)Acc No.[id number]:11/26/2024 Progress Notes Patient:?Mita MEIER Provider:?Dara Grissom MD :1945???Age:79 Y???Sex:Female D ate:11/26/2024 Address:[address] [place] [address] [facility], [id number] Subjective: * Chief Complaints: * ???Recent respiratory infect ionElevated ccholesterolWeight losssHypertensionHyperlipidemiaCOPD * HPI: ???COVID-19 Screening:?Questions?Have you had any new onset fever, chills, cough, congestion, sore throat, shortness of breath, muscle aches??No ???:? The patient, an 79-year-old female, presented with a recent history of weight loss, dropping from 120 lbs to 112 lbs. She reported having a cold and not eating for three days due to not feeling well. She also mentioned trying to gain weight. The patient's blood work from a week ago showed normal sodium, potassium, chloride, bicarbonate, blood sugar, and kidney function. However, her cholesterol was high at 295, with the LDL cholesterol at 212. The patient is currently on 80 milligrams of atorvastatin. She also has a history of small pulmonary nodules, which were stable at the last check a year ago. * ROS:?General/Constitutional:?pain?only normal aches and pains.?Chills?denies.?Fatigue?admits.?Fever?denies.?ENT:?Decreased hearing?in both ears.?Respiratory:?Cough?denies.?Cardiovascular:?Chest pain with exertion?denies.?Dyspnea on exertion?denies.?Shortness of breath?with exertion.?Gastrointestinal:?Constipation?occasional.?Decreased appetite?denies.?Diarrhea?denies.?Heartburn?denies.?Nausea?denies.?Rectal bleeding?denies.?Vomiting?denies.?Hematology:?bruising?denies.?petechiae?denies.?Swollen glands?none have been noted.?Genitourinary:?Frequent urination?denies.?Musculoskeletal:?Muscle aches?denies.?Painful joints?denies.?Sciatica?denies.?Weakness?denies.?Skin:?Itching?denies.?Rash?denies.?Skin lesion(s)?denies.?Neurologic:?Difficulty speaking?denies.?Dizziness?denies.?Headache?denies.?Low back pain?denies.?Psychiatric:?Depressed mood?denies.? [...] Social History:?Tobacco Use:?Tobacco Use/Smoking?Patient is a?former smoker ???Drugs/Alcohol:?Drugs?Have you used drugs other than those for medical reasons in the past 12 months??No ?Alcohol Screen?Did you have a drink containing alcohol in the past year??No ?Points?0 ?Interpretation?Negative ???She lives in [place] and is . She enjoys sewing, knitting and crafts. She was born in [place]. Smoking: Past smoker; Diet: Unhealthy, high in sugar and fat; Living Situation: Lives with caregiver. * Medications:?TakingpredniSON E 20 MG Tablet TAKE [...] Aerosol 2 puffs Inhalation Twice a day Clopidogrel Bisulfate 75 MG Tablet [...] 2 puffs Inhalation Twice a day Taking Clopidogrel Bisulfate 75 MG Tablet 1 tablet Orally Once a day Taking Metoprolol Succinate ER 25 MG Tablet Extended Release 24 Hour TAKE 1 TABLET BY MOUTH EVERY DAY Medication List reviewed and reconciled with the patient * Allergies:?LevaquinSulfaceta mideShrimp (Diagnostic): Asthma attack - Side Effectsno[Allergies Verified] Objective: * Vitals:?Ht: 61, Wt:112, BMI: 21.16, BP:130/61, HR:56, Temp:98.2, Wt-k.8. * Examination: ???General Examination: ?GENERAL APPEARANCE:?pleasant, well nourished, well developed, in no acute distress, calm and relaxed, elderly woman.?HEAD:?atraumatic, normocephalic.?EYES:?eomi, perrla, anicteric, conjugate.?EARS:?normal.?NOSE:?septum intact.?ORAL CAVITY:?normal, unremarkable.?NECK/THYROID:?no jugular venous distention, no carotid bruit, thyroid normal.?LYMPH NODES:?no enlarged lymph nodes,spleen normal.?SKIN:?no suspicious lesions, anicteric.?HEART:?no clicks, gallops, murmurs, or rubs, regular rhythm, S1, S2 normal, no s3, or vascular bruits.?LUNGS:?, good air movement, no wheezes, rales, rhonchi, diminished breath sounds throughout.?BREASTS:?Examination declined.?ABDOMEN:?bowel sounds normal, no ascites, no organomegaly, no mass.?RECTAL EXAM:?not examined.?MUSCULOSKELETAL:?extremities unremarkable, no clubbing, cyanosis or edema.?PERIPHERAL PULSES:?normal.?NEUROLOGIC:?alert and oriented, cranial nerves 2-12 grossly intact With some heearinng loss, deep tendon reflexes 2+ symmetrical, motor strength normal upper and lower extremities, sensory exam intact.?PSYCH:?alert, oriented, speech clear, good eye contact, cooperative with exam.? : ???Ears:Normal, no obstruction; Heart: Normal; Liver and Spleen: Normal; Gallbladder: Normal. ??? Assessment: * Assessment: 1.?Weight loss - R63.4 (Prim belle)???Notes :She has lost 10 pounds unintentionally since her last visit in July 2024.? This is beiing evaluated at this time.???2.?Hyperlipidemia - E78.5???Notes :Her cholesterol kemi been stable in years past.? The current value is 295.? It is being repeated as I think this is a dietary? iissue.???3.?Multiple pulmonary nodules - R91.8???Notes :A repeaat CT scan has been ordered.? She is asyymptomatic at thiis time.? However, a weight loss is noted.???4.?Solid nodule of lung 6 mm to 8 mm in diameter - R91.1???Notes :It has been a year since her last chest CT scan.? I have ordered another chest CT scan to monitor the pulmonary nodules which will be done in the near future.???5.?Allergic rhinitis, unspecified allergic rhinitis type - J30.9???Notes :She experienced moderate symptoms during pollen season, but she is not experiencing allergies at this time. No change in her regimen as necessary.???6.?Former smoker - Z87.891???Notes :She is highly motivated not to smoke anymore. She has a plan for prevention of relapse in times of stress.??? Plan: * Treatment: 2.?Multiple pulmonary nodule s?Imaging: CT CHEST WITH CONTRAST 3.?Solid nodule of lung 6 mm to 8 mm in diameter?Imaging: CT CHEST WITH CONTRAST 4.?Others? Continue predniSONE Tablet, 20 MG, TAKE 1 TABLET BY MOUTH WITH FOOD OR MILK EVERY DAY;?Continue Atorvastatin Calcium Tablet, 80 MG, 1 tablet, Orally, Once a day;?Continue Arnuity Ellipta Aerosol Powder Breath Activated, 200 MCG/ACT, 1 puff, Inhalation, Once a day.?? * Procedure Codes:? * Preventive Medicine:? ??Counseling:?Care goal follow-up plan:?Counseling for abnormal BMI given?Yes ?Below Normal BMI Follow-up?Dietary education for weight gain, Dietary management education, guidance, and counseling, Feeding regime, Lifestyle education regarding diet, Nutrition / feeding management, Prescribed diet education, Special diet education, Intervention, Order not done: Medical or Other reason not done ?Smoking/Tobacco Use?Patient counseled on the dangers of tobacco use and urged to quit.?11/26/2024 ??COPD Care Plan:?Patient Lifestyle Goals?Be able to be more active with friends and family, Reduce number of ED and hospitalizations, Relieve symptoms and improve quality of life.?Treatment Goals?Eat a nutritious diet and increase water consumption to 6-8 glasses a day, Eat 4-5 small meals throughout the day.?Barriers?no barriers.?Self-Managment Goals?Get an air purifier for the rooms you are in the most, Eat a healthy diet.? * Follow Up:?As Scheduled, In December (Reason: Annual Exam, Physical checkup and recheck cholesterol) * Images: * Sign off status: Completed true * Provider:?Dara Grissom MD Date:?11/01 Generated for Wojciech cunha/Fahad/Aniaitting on:?03/06/2025 11:50 AM EDT History and Physical Notes * HPI (History of Present Illness) Category Sub-Category Detail Notes COVID-19 Screening Questions Have you had any new onset fever, chills, cough, congestion, sore throat, shortness of breath, muscle aches?: No Examination Category Sub-Category Detail Notes General [...] no s3, or vascular bruits LUNGS: , good air movement, no wheezes, rales, rhonchi, diminished breath sounds throughout ABDOMEN: bowel sounds normal, no ascites, no organomegaly, no mass NEUROLOGIC: alert and oriented, cranial nerves 2-12 grossly intact With some heearinng loss, deep tendon reflexes 2+ symmetrical, motor strength normal upper and lower extremities, sensory exam intact SKIN: no suspicious lesion s, anicteric PERIPHERAL PULSES: normal BREASTS: Examination declined MUSCULOSKELETAL: extremities unremark able, no clubbing, cyanosis or edema LYMPH NODES: no enlarged lymph no sana,spleen normal RECTAL EXAM: not examined PSYCH: alert, oriented, spe ech clear, good eye contact, cooperative with exam ORAL CAVITY: normal, unremarkable
--- OUTSIDE RECORDS SUMMARY | 2025-03-06 11:50 | XMS_ITS ---
Author Organization Dara Grissom III, MD Address [address] [place] [address] Care Team Providers Care Multi Site Leasing Consultant Name Role Phone Dara Grissom Primary Care Provider REASON FOR VISIT annual exam Social History Sex Assigned At : Social History Observation Description Sex Assigned At Female Encounters Encounter Location Date Provider Diagnosis Dara Grissom III, MD [address] [place] [address] [place] [address] 11/12/2024 Dara Grissom Plan Of Treatment Next Appt Details Provider Name:Dara Grissom, 04/11/2025 09:45:00 AM, [address] [place] [address] [place], [address], Provider Name:Dara Grissom, 01/29/2026 09:30:00 AM, [address] [place] [address] [place], [address], Progress Notes * Mita MEIERDOB:1945 ( 79 yo F)Acc No.[id number]:11/12/2024 Progress Notes Patient:?Mita MEIER Provider:?Dara Grissom MD :1945???Age:79 Y???Sex:Female D ate:11/12/2024 Address:[address], [id number] Subjective: * Chief Complaints: * ???1. Annual exam. * Medical History:? Objective: * Vitals:? Assessment: Plan: * Treatment: * Images: * The named appointment provid er may or may not be the originator of this progress note, and it is not deemed complete until electronically signed by the appointment provider. Sign off status: Pending * Provider:?Dara Grissom MD Date:?10/31 Generated for Wojciech cunha/Fahad/Anya on:?03/06/2025 11:49 AM EDT
--- OUTSIDE RECORDS SUMMARY | 2025-03-06 11:50 | XMS_ITS | Patient Health Record ---
Author Organization Dara Grissom III, MD Address [address] [place] [address] Care Team Providers Care Medical Dosimetrist Name Role Phone Dara Grissom Primary Care [...] 0.2 - 1.3 BLD Negative Negative - Reason For Referral No Information Medications Medication SIG (Take, Route, Frequency, Duration) Notes Start Date End Date Status Arnuity Ellipta 200 MCG/ACT 1 puff Inhal [...] TABLET BY M OUTH EVERY DAY Active Mometasone Furoate 200 MCG/ACT 2 puffs [...] as needed Orally Once a day Active Albuterol Sulfate HFA 108 (90 Base) MCG/ACT 2 puffs Inhalation Once a day Active Aspirin Adult Low Dose 81 MG 1 tablet Orally Once a day Active Immunizations Vaccine Route Administration Date Status [...] Problem Status W/U Status Risk Notes Problem 4708878 Former smoker (Z87.891) Active confirmed She is highly motivated not to smoke anymore. She has a plan for prevention of relapse in times of stress. Problem 46059022 Hyperlipidemia (E78.5) Active confirmed Her cholesterol kemi been stable in years past. The current value is 295. It is being repeated as I think this is a dietary iissue. Problem 38515042 Weight loss (R63.4) Active confirmed She has lost an additional 2 pounds since her last visit. Body mass index is in the normal range but low at 20. Her weight is being observed carefully. She is being evaluated for the cause of weight loss. Problem 58774660 Anxiety (F41.9) Active confirmed She is feeling much calmer lately and has returned to baseline. She is not feeling dyspneic. She has had no panic attacks. She will continue to take the sertraline. However, she continues to refuse cancer screening. Some parts of the physical examination. Problem Chronic obstructive pulmonary disease, unspecified (J44.9) Active confirmed She was comfortable breathing room air today and there was no wheezing physical examination. Problem Asthma (126657079) Other asthma (J45.998) Active confirmed Her lungs were clear today. She has had no attacks of asthma lately. We discussed how to cope with pollen season. Her inhalers are up-to-date. Problem 60912159 Essential hypertension (I10) Active confirmed Her bloood pressure today is 132/83. No change in her regimen was necessary. 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 No oral lesions were seen today. Problem 08048175 Allergic rhinitis, unspecified allergic rhinitis type (J30.9) Active confirmed She experienced moderate symptoms during pollen season, but she is not experiencing allergies at this time. No change in her regimen as necessary. 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 Problem 040964695 Age-related incipient cataract of both eyes (H25.093) Active confirmed She is going to have cataract surgery. I have taken her history carefully today. I have examined her thoroughly. There is no contraindication to cataract surgery. She is medically cleared for the procedure. Problem 248714019 Solid nodule of lung 6 mm to 8 mm in diameter (R91.1) Active confirmed It has been a year since her last chest CT scan. I have ordered another chest CT scan to monitor the pulmonary nodules which will be done in the near future. Problem 89389733 NSTEMI (non-ST elevated myocardial infarction) (I21.4) Active [...] was hospitalized overnight November 23, 2023 at [facility] with an elevated troponin. The discharge diagnosis was demand ischemia not myocardial infarction. Problem 491431100 Multiple pulmonary nodules (R91.8) Active confirmed A repeaat CT scan has been ordered. [facility] However, a weight loss is noted. Vital Signs Heart Rate 78 /min 01/24/2025 Temperature 99.6 degrees Fahrenheit 01/24/2025 Blood pressure diastolic 76 mm Hg 01/24/2025 Height 61 in 01/24/2025 Blood pressure systolic 134 mm Hg 01/24/2025 Weight 110 lbs 01/24/2025 BMI 20.78 kg/m2 01/24/2025 Encounters Encounter Location Date Provider Diagnosis Dara Grissom III, MD [address] [place] [address] [place] [address] 04/19/2024 Dara Grissom Hyperlipidemia E78.5 ; Former smoker Z87.891 ; Other asthma J45.998 ; Essential hypertension I10 and Chronic obstructive pulmonary disease, unspecified J44.9 Dara Grissom III, MD [address] [place] [address] [place] [address] 08/20/2024 Dara Grissom Hyperlipidemia E78.5 ; Chronic obstructive pulmonary disease, unspecified J44.9 ; Allergic rhinitis, unspecified allergic rhinitis type J30.9 ; Essential hypertension I10 ; Former smoker Z87.891 ; Edentulous K00.0 ; Other asthma J45.998 and Solid nodule of lung 6 mm to 8 mm in diameter R91.1 Dara Grissom III, MD [address] [place] [address] [place] [address] 11/26/2024 Dara Grissom Hyperlipidemia E78.5 ; Weight loss R63.4 ; Multiple pulmonary nodules R91.8 ; Solid nodule of lung 6 mm to 8 mm in diameter R91.1 ; Allergic rhinitis, unspecified allergic rhinitis type J30.9 and Former smoker Z87.891 Dara Grissom III, MD [address] [place] [address] [place] [address] 01/24/2025 Dara Grissom Hyperlipidemia E78.5 ; Former smoker Z87.891 ; Other asthma J45.998 ; Essential hypertension I10 ; Chronic obstructive pulmonary disease, unspecified J44.9 ; Multiple pulmonary nodules R91.8 ; NSTEMI (non-ST elevated myocardial infarction) I21.4 ; Edentulous K00.0 and Weight loss R63.4 Assessments Encounter Date Diagnosis (ICD Code) Assessment Notes Treat ment Notes Treatment Clinical Notes 04/19/2024 Former smoker (ICD-10 - Z87.891) She [...] and there was no wheezing physical examination. 11/26/2024 Hyperlipidemia (ICD-10 - E78.5) Her cholesterol kemi been stable in years past. The current value is 295. It is being repeated as I think this is a dietary iissue. 11/26/2024 Weight loss (ICD-10 - R63.4) She has lost 10 pounds unintentionally since her last visit in July 2024. This is beiing evaluated at this time. 01/24/2025 Former smoker (ICD-10 - Z87.891) She is highly motivated not to smoke anymore. She has a plan for prevention of relapse in times of stress. 01/24/2025 Hyperlipidemia (ICD-10 - E78.5) 04/19/2024 Other asthma (ICD-10 - J45.998) Her [...] change in her regimen as necessary. 11/26/2024 Multiple pulmonary nodules (ICD-10 - R91.8) A repeaat CT scan has been ordered. She is asyymptomatic at thiis time. However, a weight loss is noted. 01/24/2025 Other asthma (ICD-10 - J45.998) Her [...] No change in her regimen was necessary. 11/26/2024 Solid nodule of lung 6 mm to 8 mm in diameter (ICD-10 - R91.1) It has been a year since her last chest CT scan. I have ordered another chest CT scan to monitor the pulmonary nodules which will be done in the near future. 01/24/2025 Essential hypertension (ICD-10 - I10) Her [...] prevention of relapse in times of stress. 11/26/2024 Allergic rhinitis, unspecified allergic rhinitis type (ICD-10 - J30.9) She experienced moderate symptoms during pollen season, but she is not experiencing allergies at this time. No change in her regimen as necessary. 01/24/2025 Chronic obstructive pulmonary disease, unspecified (ICD-10 - J44.9) She was comfortable breathing room air today and there was no wheezing physical examination. 08/20/2024 Edentulous (ICD-10 - K00.0) She has dentures and a fit well. No oral lesions were seen today. 11/26/2024 Former smoker (ICD-10 - Z87.891) She is highly motivated not to smoke anymore. She has a plan for prevention of relapse in times of stress. 01/24/2025 Multiple pulmonary nodules (ICD-10 - R91.8) A repeaat CT scan has been ordered. She is asyymptomatic at thiis time. However, a weight loss is noted. 08/20/2024 Other asthma (ICD-10 - J45.998) Her lungs were clear today. She has had no attacks of asthma lately. We discussed how to cope with pollen season. Her inhalers are up-to-date. 01/24/2025 NSTEMI (non-ST elevated myocardial infarction) (ICD-10 [...] was hospitalized overnight November 23, 2023 at [facility] with an elevated troponin. The discharge diagnosis was demand ischemia not myocardial infarction. 08/20/2024 Solid nodule of lung 6 mm [...] ordered and scheduled that her next visit. 01/24/2025 Edentulous (ICD-10 - K00.0) She has [...] cause of weight loss. Plan Of Treatment Pending Test Test Name Order Date PROFILE, FASTING (COMPREHENSIVE METABOLI C) 04/19/2024 PROFILE, FASTING (COMPREHENSIVE METABOLI C) 02/26/2022 PROFILE, FASTING (COMPREHENSIVE METABOLI C) 11/26/2024 PROFILE, FASTING (COMPREHENSIVE METABOLI C) 03/07/2023 PROFILE, FASTING (COMPREHENSIVE METABOLI C) 03/27/2019 PROFILE, FASTING (COMPREHENSIVE METABOLI C) 05/14/2020 PROFILE, FASTING (COMPREHENSIVE METABOLI C) 09/14/2021 PROFILE, FASTING (COMPREHENSIVE METABOLI C) 01/18/2024 PROFILE, FASTING (COMPREHENSIVE METABOLI C) 08/20/2024 PROFILE, FASTING (COMPREHENSIVE METABOLI C) 05/28/2022 PROFILE, FASTING (COMPREHENSIVE METABOLI C) 11/08/2023 PROFILE, FASTING (COMPREHENSIVE METABOLI C) 11/14/2019 PROFILE, FASTING (COMPREHENSIVE METABOLI C) 03/09/2019 PROFILE, RANDOM (COMPREHENSIVE METABOLIC ) 09/15/2020 LIPID PANEL 03/09/2019 LIPID PANEL 09/15/2020 LIPID PANEL 03/07/2023 LIPID PANEL 03/27/2019 LIPID PANEL 05/14/2020 LIPID PANEL 09/14/2021 LIPID PANEL 11/14/2019 CBC w DIFF 11/14/2019 CBC w DIFF 02/26/2022 CBC w DIFF 03/09/2019 CBC w DIFF 09/15/2020 CBC w DIFF 03/07/2023 CBC w DIFF 03/27/2019 CBC w DIFF 05/14/2020 CBC w DIFF 05/28/2022 CBC w DIFF 09/14/2021 CBC w DIFF 11/08/2023 RUBEOLA IGG (MEASLES) 03/09/2019 MUMPS AB IGG 03/09/2019 CT CHEST WITH CONTRAST 11/08/2023 CT CHEST WITH CONTRAST 11/26/2024 RUBELLA 03/09/2019 CBC WITH AUTO DIFF 04/19/2024 CBC WITH AUTO DIFF 11/26/2024 CBC WITH AUTO DIFF 01/18/2024 CBC WITH AUTO DIFF 08/20/2024 Lipid Panel 11/08/2023 Lipid Panel 04/19/2024 Lipid Panel 02/26/2022 Lipid Panel 11/26/2024 Lipid Panel 01/18/2024 Lipid Panel 08/20/2024 Lipid Panel 05/28/2022 Next Appt Details Provider Name:Dara Grissom, 04/11/2025 09:45:00 AM, [address] [place] [address] [address] [place], [place], [address], Provider Name:Dara Grissom, 01/29/2026 09:30:00 AM, [address] [place] [address] [address], [place], [address], Insurance Providers Payer Name Payer Address Payer Phone Subscriber Number Group Number Insured Name Patient Relationship to Insured Coverage Start Date Coverage End Date [employer] [address] [place], [place] [id number] [phone] [id number] Mita Meier Self - patient is the insured MEDICARE NGS [address] [facility] [place] [address] [id number] Mita Meier Self - patient is the insured Medical (General) History Medical History History ICD Code anxiety asthma [id number] farsighted hyperlipidemia noncompliance with mammography and colon oscopy allergic rhinitis 8 mm pulmonary nodule, next chest CT Oct High cholesterol; Small, stable pulmonar y nodules Surgical History Surgery Date(Month/Year) No history Hospitalization History Reason Date(Month/Year) No history Non-ST elevated myocardial infraction
== END 2025-03-06 10:55 | disposition home or self-care (01) ==
LOC: HO.HPS 10:31
PROVIDERS: PCP Internal Medicine Medical Oncology; Visit Provider Internal Medicine
DX: J44.9 Chronic obstructive pulmonary disease, unspecified (principal); J30.9 Allergic rhinitis, unspecified; F41.9 Anxiety disorder, unspecified
CPT/HCPCS: 99213

== ENCOUNTER → 2025-03-06 10:31 | Outpatient (BNVA) | payer MEDICARE, SELFPAY | PROVIDERS: PCP Internal Medicine Medical Oncology; Visit Provider Internal Medicine | DX: J44.9 Chronic obstructive pulmonary disease, unspecified (principal); F41.9 Anxiety disorder, unspecified; J30.9 Allergic rhinitis, unspecified | CPT/HCPCS: 99212 ==

== ENCOUNTER 2025-09-09 09:38 | Outpatient (AMB) | payer MEDICARE, SELFPAY ==
[2025-09-09 09:44] VITALS: BP 110/42; PULSE 57; O2SAT 96; BMI 21.5
--- NOTE | 2025-09-09 09:44 | MHC.OFFVIS ---
Vital Signs 09/09/25 09:44 Height 5 ft Weight 110 lb 3.698 oz BMI 21.5 BP 110/42 L Blood Pressure Location Lt brachial Position Sitting Pulse 57 Pulse Source Pulse Oximeter Pulse Oximetry (%) 96 Oxygen Delivery Method Room Air Intake Visit Reasons: COPD Intake Note: pt is here for follow up and states she is feeling good. 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 Allergies levofloxacin (Levaquin) Allergy (Unknown, Verified 09/09/25 10:01) Unknown Sulfa (Sulfonamide Antibiotics) Allergy (Unknown, Verified 09/09/25 10:01) Unknown Medication List - Last Reconciled 09/09/25 by Toya Amezcua MD albuterol sulfate 90 mcg/actuation 2 puffs inhalation Q6H PRN albuterol sulfate 0.63 mg (3 mL) inhalation QID PRN aspirin 81 mg PO DAILY atorvastatin 80 mg PO BEDTIME clopidogrel 75 mg PO DAILY fluticasone furoate 200 mcg/actuation (Arnuity Ellipta) 1 inh inhalation DAILY lisinopril 10 mg PO DAILY lorazepam 0.5 mg (1/2 x 1 mg) PO TID PRN 30 days metoprolol succinate ER 25 mg PO DAILY nebulizers (AeroEclipse II Nebulizer) As directed sertraline 100 mg PO DAILY Do you need a note to return to daycare/school/sports/work: No HPI HPI COPD: Details: OUSMANE IS 80 YEARS OLD FEMALE, VERY PLEASANT, DENIES ANY COMPLAINTS. ACCORDING TO THE SON SHE DOES FORGET TO EAT AND SOMETIME HE HAS TO PROMPT HER TO EAT REGULARLY. ( SON PREPARES FOOD ON A DAILY BASIS ) SHE IS HAPPY WITH THE USE OF ARNUITY BUT ACCORDING TO THE SON SOMETIMES SHE ENDS UP USING TWICE A DAY, AND RUNS SHORT OF MEDICINE BEFORE THE END OF THE. ALSO SHE DOES NOT HAVE MUCH NASAL STUFFINESS. ACCORDING TO THE SON SHE SOMETIMES FORGETS TO EAT HER MEAL ON TIME, AND NEEDS TO BE REMINDED. SHE HAS LOST A FEW LB OF WEIGHT, PFSH Medical History Allergic rhinitis HTN (hypertension) HLD (hyperlipidemia) Anxiety COPD (chronic obstructive pulmonary disease) Social History Alcohol intake: current Alcohol intake frequency: a few times a month Patient Tobacco Use Status: Former Tobacco user Years Smoked: 1979 service: No Current occupational status: retired Review of Systems Const All systems reviewed & are unremarkable except as noted in HPI and below Eyes Reports no additional complaints ENT Reports no additional complaints Card Denies chest pain, Reports irregular heart rhythm, Denies leg edema and Reports dyspnea on exertion (Mild) Resp Reports cough, Reports dyspnea on exertion (Mild) and Reports wheezing GI Reports other (Appetite somewhat poor) Reports no additional complaints Musc Reports no additional complaints Skin/Breast Reports system reviewed and no additional complaints, except as documented Neuro Reports no additional complaints Psych Reports anxiety Aller/Immun Reports wheezing Physical Exam Vital Signs: Last Vital Signs Pulse 57 09/09/25 09:44 BP 110/42 L 09/09/25 09:44 Pulse Ox 96 09/09/25 09:44 Oxygen Delivery Method Room Air 09/09/25 09:44 BMI result Body Mass Index 21.5 Const General: healthy appearing (Anxious, and somewhat depressed.), comfortable, no acute distress, alert and awake Orientation/consciousness: patient oriented x3 HEENT Head: Yes normal to inspection General nose exam: No nasal polyps present and No nasal discharge present Face and sinus: Yes sinuses nontender Mouth: oropharynx normal Throat: Yes posterior oropharynx normal Eyes General: appearance normal, both eyes and all related structures Neck Neck: Yes normal visual inspection, Yes no lymphadenopathy, Yes trachea midline and Yes no JVD Thyroid: Thyroid normal Chest Chest palpation & inspection: normal inspection of the chest, normal palpation of entire chest wall and no tenderness Resp Other: Percussion note resonant, breath sounds are distant on both sides with prolonged expiratory phase. No wheezes crepitations or rhonchi are heard today. Cardio Palpation: normal PMI Rate: regular rate Rhythm: regular rhythm Heart sounds: no gallops and no murmurs Peripheral pulses: Peripheral pulses 2+ throughout GI Palpation (GI): Soft to palpation, nontender, No hepatosplenomegaly present and no masses Auscultation: normal bowel sounds Back/Spine/Pelvis Thoracic/Lumbar Spine: thoracic and lumbar spine normal to inspection Skin General skin exam: no rashes or lesions noted Neuro General: patient oriented x3 and no focal motor deficits Cranial nerves: Yes CN's II-XII intact bilaterally Extrem General: Yes normal to inspection, Yes no clubbing, cyanosis or edema and Yes no calf tenderness Psych Appearance: grossly normal, well kempt and other (Not very anxious at this time ) Speech and movement: Normal speech and movement present Assessment & Plan Assessment & Plan (1) COPD (chronic obstructive pulmonary disease): Comment: ASTHMA/COPD ,MILD TO MODERTAE ,FAIRLY WELL CONTROLLED AT THIS TIME. SHE DOES NEED TO USE CORTICOSTEROID INHALER FOR CONTROLLING ASTHMA SYMPTOMS AND IS DOING VERY WELL WITH ARNUITY ELLIPTA ONCE A DAY, Code(s): J44.9 - Chronic obstructive pulmonary disease, unspecified Category: Medical Plan: CONTINUE USING ARNUITY ELLIPTA 1 INHALATION DAILY, AND ALBUTEROL HFA Q 6 HOURS ONLY P.R.N. (2) Allergic rhinitis: Comment: CHRONIC NONSPECIFIC ALLERGIC RHINITIS/POSSIBLE VASOMOTOR RHINITIS, MILD TO MODERATE DEGREE OF SYMPTOMS BUT MOSTLY WELL CONTROLLED. Code(s): J30.9 - Allergic rhinitis, unspecified Category: Medical Plan: SHE IS NOT NEEDING TO USE ANY ANTIHISTAMINIC ON NASAL SPRAY THESE DAYS (3) Anxiety: Comment: SUFFERS FROM CHRONIC ANXIETY DISORDER. FREQUENT ATTACKS OF ANXIETY/PANIC AND SHORTNESS OF BREATH. LATELY BETTER CONTROLLED , SINCE SHE IS USING ARNUITY, Now using lorazepam 0.5 mg only p.r.n.. She said she does not have to use it every night. Code(s): F41.9 - Anxiety disorder, unspecified Category: Medical Plan: REASSURED AND ADVISED TO USE LORAZEPAM 0.5 MG ONLY SPARINGLY Coding Level of Care Code Est Pt Level 3 (62964) Diagnoses COPD (chronic obstructive pulmonary disease) J44.9 Allergic rhinitis J30.9 Anxiety F41.9
== END 2025-09-09 10:10 | disposition home or self-care (01) ==
LOC: HO.HPS 09:39
PROVIDERS: PCP Internal Medicine Medical Oncology; Visit Provider Internal Medicine
DX: J44.9 Chronic obstructive pulmonary disease, unspecified (principal); J30.9 Allergic rhinitis, unspecified; F41.9 Anxiety disorder, unspecified
CPT/HCPCS: 99213

== ENCOUNTER → 2025-09-09 09:38 | Outpatient (BNVA) | payer MEDICARE, SELFPAY | PROVIDERS: PCP Internal Medicine Medical Oncology; Visit Provider Internal Medicine | DX: J44.9 Chronic obstructive pulmonary disease, unspecified (principal); J30.9 Allergic rhinitis, unspecified; F41.9 Anxiety disorder, unspecified | CPT/HCPCS: 99212 ==